=== PATIENT | female | born 1975 | race Caucasian/White ===

== ENCOUNTER 2017-07-26 10:34 | Emergency (ER) | payer MEDICAID ==
[~2017-07-26] VITALS: Ht 165.1 cm; Wt 63.0 kg
[~2017-07-26 10:34] MED LIST: NO HOME MEDS
[2017-07-26 11:17] VITALS: BP 121/73
[2017-07-26] MEDS ORDERED: CEPH-571 PO (11:30)
[2017-07-26] MEDS ORDERED: IBUP-1984 PO (11:30)
[2017-07-26] MEDS ORDERED: CLOT12CR TOP (11:30)
== END 2017-07-26 11:44 | disposition home or self-care (01) ==
LOC: ER 10:34
DX: B35.3 Tinea pedis (principal); L03.116 Cellulitis of left lower limb; L03.115 Cellulitis of right lower limb; Z88.0 Allergy status to penicillin; Z60.2 Problems related to living alone
CPT/HCPCS: 99283

== ENCOUNTER 2017-07-27 12:57 | Emergency (ER) | payer MEDICAID ==
[~2017-07-27] VITALS: Ht 165.1 cm; Wt 63.6 kg
[~2017-07-27 12:57] MED LIST changes: +CEPH-571 PO; +CLOT12CR TOP; +IBUP-1984 PO
[2017-07-27 13:00] VITALS: BP 143/89
== END 2017-07-27 14:31 | disposition home or self-care (01) ==
LOC: ER 12:58
DX: S90.821A Blister (nonthermal), right foot, initial encounter (principal); F17.200 Nicotine dependence, unspecified, uncomplicated; Z88.0 Allergy status to penicillin; Z56.0 Unemployment, unspecified; Z59.0 Homelessness
CPT/HCPCS: 99281

== ENCOUNTER 2017-09-17 08:42 | Emergency (ER) | payer MEDICAID ==
[~2017-09-17] VITALS: Ht 419.4 cm; Wt 63.6 kg
[~2017-09-17 08:42] MED LIST changes: -IBUP-1984 PO
[2017-09-17 08:58] VITALS: BP 120/80
[2017-09-17] MEDS ORDERED: DOXY100C43 PO (10:36)
== END 2017-09-17 10:48 | disposition home or self-care (01) ==
LOC: ER 08:42
DX: L03.116 Cellulitis of left lower limb (principal); E11.9 Type 2 diabetes mellitus without complications; Z88.0 Allergy status to penicillin; Z79.899 Other long term (current) drug therapy; Z79.2 Long term (current) use of antibiotics; Z60.2 Problems related to living alone; Z59.0 Homelessness
CPT/HCPCS: 99283

== ENCOUNTER 2017-11-01 15:39 | Emergency (ER) | payer MEDICAID ==
[~2017-11-01] VITALS: Ht 165.1 cm; Wt 59.4 kg
[2017-11-01] MEDS ORDERED: SULF1TAB49 PO (15:50)
[2017-11-01 15:57] VITALS: BP 135/89
== END 2017-11-01 16:01 | disposition home or self-care (01) ==
LOC: ER 15:39
DX: L03.811 Cellulitis of head [any part, except face] (principal); E11.9 Type 2 diabetes mellitus without complications; Z88.0 Allergy status to penicillin; Z79.2 Long term (current) use of antibiotics; Z59.0 Homelessness; Z60.2 Problems related to living alone
CPT/HCPCS: 99283

== ENCOUNTER 2017-11-12 10:00 | Emergency (ER) | payer MEDICAID ==
[~2017-11-12] VITALS: Ht 162.6 cm; Wt 59.0 kg
[2017-11-12 10:06] VITALS: BP 117/82
[2017-11-12] MEDS ORDERED: PERM59LI8 TOP (11:55)
[2017-11-12] MEDS ORDERED: SULF1TAB49 PO (11:55)
== END 2017-11-12 12:09 | disposition home or self-care (01) ==
LOC: ER 10:01
DX: B85.0 Pediculosis due to Pediculus humanus capitis (principal); L03.116 Cellulitis of left lower limb; L03.115 Cellulitis of right lower limb; E11.9 Type 2 diabetes mellitus without complications; Z88.0 Allergy status to penicillin; Z59.0 Homelessness
CPT/HCPCS: 99283

== ENCOUNTER 2018-01-13 21:58 | Emergency (ER) | payer MEDICAID ==
[~2018-01-13] VITALS: Ht 165.1 cm; Wt 54.5 kg
[~2018-01-13 21:58] MED LIST changes: +PERM59LI8 TOP
[2018-01-13 22:03] VITALS: BP 115/77
[2018-01-14] MEDS ORDERED: SULF1TAB49 PO (09:51)
== END 2018-01-13 23:03 | disposition left against medical advice (07) ==
LOC: ER 21:58
DX: M79.642 Pain in left hand (principal); Z53.21 Procedure and treatment not carried out due to patient leaving prior to being seen by health care provider

== ENCOUNTER 2018-01-14 09:21 | Emergency (ER) | payer MEDICAID ==
[~2018-01-14] VITALS: Ht 165.1 cm; Wt 63.6 kg
[2018-01-14 09:25] VITALS: BP 118/82
[2018-01-14] MEDS ORDERED: sulfamethoxazole/trimethoprim DS (800/160mg) tablet PO ONE (09:50)
[2018-01-14] MEDS ORDERED: SULF1TAB49 PO (09:51)
== END 2018-01-14 09:59 | disposition home or self-care (01) ==
LOC: ER 09:22
DX: L02.512 Cutaneous abscess of left hand (principal); E11.9 Type 2 diabetes mellitus without complications; Z60.2 Problems related to living alone; Z56.0 Unemployment, unspecified; Z88.0 Allergy status to penicillin; Z79.2 Long term (current) use of antibiotics; Z79.899 Other long term (current) drug therapy
CPT/HCPCS: 10160; 99283

== ENCOUNTER 2018-01-15 10:26 | Emergency (ER) | payer MEDICAID ==
[~2018-01-15] VITALS: Ht 162.6 cm; Wt 53.8 kg
[~2018-01-15 10:26] MED LIST changes: +SULF1TAB49 PO
[2018-01-15] MEDS ORDERED: HYDROcodone/acetaminophen 5mg/325mg tablet PO ONE (11:15)
[2018-01-15] MEDS ORDERED: LIDOcaine 1.5% w/epinephrine 1:200,000 5ml ampul IJ ONE (11:15)
[2018-01-15 11:39] VITALS: BP 126/87
== END 2018-01-15 13:31 | disposition home or self-care (01) ==
LOC: ER 10:26
DX: L02.11 Cutaneous abscess of neck (principal); L02.512 Cutaneous abscess of left hand; E11.9 Type 2 diabetes mellitus without complications; Z88.0 Allergy status to penicillin; Z59.0 Homelessness; Z60.2 Problems related to living alone
CPT/HCPCS: 10061; 99284; J3490

== ENCOUNTER 2018-01-16 18:13 | Emergency (ER) | payer MEDICAID ==
[~2018-01-16] VITALS: Ht 162.6 cm; Wt 56.2 kg
[2018-01-16 18:22] VITALS: BP 108/79
== END 2018-01-16 19:13 | disposition home or self-care (01) ==
LOC: ER 18:13
DX: L02.512 Cutaneous abscess of left hand (principal); Z59.0 Homelessness; Z88.0 Allergy status to penicillin; Z79.899 Other long term (current) drug therapy
CPT/HCPCS: 99282

== ENCOUNTER 2018-01-18 08:23 | Day surgery (SDC) | payer MEDICAID ==
[2018-01-18] MEDS ORDERED: LIDOcaine/PRILOcaine 5gm cream TP ONE (09:53)
[2018-01-18 10:30] LABS: BASOPHILS % (AUTO) 0.5 % (0-1); EOSINOPHILS # (AUTO) 0.1 X10'3 (0-0.9); EOSINOPHILS % (AUTO) 2.1 % (0-6); HEMATOCRIT 33.8 % (35.0-45.0); LYMPHOCYTES # (AUTO) 2.2 X10'3 (1.1-4.8); LYMPHOCYTES % (AUTO) 31.2 % (21-51); MEAN CORPUSCULAR HGB CONC 32.5 % (33.0-36.5); MEAN CORPUSCULAR VOLUME 86.1 FL (78-98); MEAN PLATELET VOLUME 6.4 FL (7.4-10.4); MONOCYTES # (AUTO) 0.4 X10'3 (0-0.9); MONOCYTES % (AUTO) 6.3 % (2-12); NEUTROPHILS # (AUTO) 4.2 X10'3 (1.8-7.7); NEUTROPHILS % (AUTO) 59.9 % (42-75); PLATELET COUNT 467 X10'3 (140-440); RED BLOOD COUNT 3.92 X10'6 (4.20-5.60); RED CELL DISTRIBUTION WIDTH 15.1 % (11.5-14.5); WHITE BLOOD COUNT 6.9 X10'3 (4.5-11.0)
[2018-01-18 10:32] LABS: HEMOGLOBIN A1C 5.9 % (4.5-6.2)
[2018-01-18 10:38] LABS: ALANINE AMINOTRANSFERASE 14 U/L (12-78); ALBUMIN 2.7 G/DL (3.4-5.0); ALBUMIN/GLOBULIN RATIO 0.5 (1.1-1.5); ALKALINE PHOSPHATASE 53 IU/L (46-116); ANION GAP 8 (8-16); ASPARTATE AMINO TRANSFERASE 16 U/L (10-37); BILIRUBIN,TOTAL 0.2 MG/DL (0.1-1.0); BLOOD UREA NITROGEN 12 MG/DL (7-18); BUN/CREATININE RATIO 14.8 (6.6-38.0); CALCIUM 8.9 MG/DL (8.5-10.1); CHLORIDE 104 MMOL/L (99-107); CREATININE 0.81 MG/DL (0.40-0.90); GLUCOSE 83 MG/DL (70-104); POTASSIUM 3.9 MMOL/L (3.5-5.1); PREALBUMIN 18.3 MG/DL (19-36); SODIUM 141 MMOL/L (135-145); TOTAL CARBON DIOXIDE 28.6 MMOL/L (24-32); TOTAL PROTEIN 7.7 G/DL (6.4-8.2); eGFR 78 ML/MIN
== END 2018-01-18 10:55 | disposition home or self-care (01) ==
LOC: WOUND CARE 08:23
PROVIDERS: ATTEND Surgery
DX: E11.622 Type 2 diabetes mellitus with other skin ulcer (principal); L98.492 Non-pressure chronic ulcer of skin of other sites with fat layer exposed; L02.512 Cutaneous abscess of left hand; Z79.2 Long term (current) use of antibiotics; Z79.899 Other long term (current) drug therapy
CPT/HCPCS: 36415; 80053; 83036; 84134; 85025; 97597; A6021; A6206; A6446

== ENCOUNTER 2018-01-22 21:05 | Emergency (ER) | payer MEDICAID ==
[~2018-01-22] VITALS: Ht 162.6 cm; Wt 59.0 kg
[~2018-01-22 21:05] MED LIST changes: -CEPH-571 PO; -CLOT12CR TOP; -PERM59LI8 TOP
[2018-01-22 21:29] VITALS: BP 136/65
[2018-01-22] MEDS ORDERED: SULF1TAB49 PO (21:31)
[2018-01-22] MEDS ORDERED: AZIT250T PO (21:32)
== END 2018-01-22 21:54 | disposition home or self-care (01) ==
LOC: ER 21:12
DX: L02.01 Cutaneous abscess of face (principal); L02.512 Cutaneous abscess of left hand; Z59.0 Homelessness; Z88.0 Allergy status to penicillin; Z60.2 Problems related to living alone
CPT/HCPCS: 99283

== ENCOUNTER 2018-01-30 11:13 | Outpatient (CLI) | payer MEDICAID ==
[~2018-01-30 11:13] MED LIST changes: +AZIT250T PO
== END 2018-01-30 12:34 | disposition home or self-care (01) ==
LOC: WOUND CARE 11:13
PROVIDERS: ATTEND Surgery
DX: E11.622 Type 2 diabetes mellitus with other skin ulcer (principal); L98.492 Non-pressure chronic ulcer of skin of other sites with fat layer exposed; L02.512 Cutaneous abscess of left hand; Z79.2 Long term (current) use of antibiotics; Z79.899 Other long term (current) drug therapy
CPT/HCPCS: 99215

== ENCOUNTER 2018-02-18 09:26 | Emergency (ER) | payer MEDICAID ==
[~2018-02-18] VITALS: Ht 165.1 cm; Wt 50.9 kg
[~2018-02-18 09:26] MED LIST changes: +CEPH-572 PO; -SULF1TAB49 PO
[2018-02-18 10:15] VITALS: BP 118/80
== END 2018-02-18 11:02 | disposition home or self-care (01) ==
LOC: ER 09:26
DX: L03.115 Cellulitis of right lower limb (principal); Z48.00 Encounter for change or removal of nonsurgical wound dressing; E11.9 Type 2 diabetes mellitus without complications; Z86.14 Personal history of Methicillin resistant Staphylococcus aureus infection; F15.90 Other stimulant use, unspecified, uncomplicated; Z88.0 Allergy status to penicillin; Z79.2 Long term (current) use of antibiotics; Z59.0 Homelessness; Z60.2 Problems related to living alone
CPT/HCPCS: 99281

== ENCOUNTER 2018-03-08 13:23 | Emergency (ER) | payer MEDICAID ==
[~2018-03-08 13:23] MED LIST changes: -CEPH-572 PO
== END 2018-03-08 13:40 | disposition left against medical advice (07) ==
LOC: ER 13:23
DX: Z02.89 Encounter for other administrative examinations (principal); Z53.21 Procedure and treatment not carried out due to patient leaving prior to being seen by health care provider

== ENCOUNTER 2018-03-30 13:24 | Emergency (ER) | payer MEDICAID ==
[~2018-03-30] VITALS: Ht 165.1 cm; Wt 55.0 kg
[2018-03-30 14:04] VITALS: BP 110/76
[2018-03-30 14:17] LABS: BASOPHILS % (AUTO) 0.4 % (0-1); EOSINOPHILS # (AUTO) 0.1 X10'3 (0-0.9); HEMATOCRIT 38.5 % (35.0-45.0); HEMOGLOBIN 12.8 g/dl (12.0-16.0); LYMPHOCYTES # (AUTO) 2.7 X10'3 (1.1-4.8); LYMPHOCYTES % (AUTO) 32.4 % (21-51); MEAN CORPUSCULAR HEMOGLOBIN 28.5 PG (27.0-31.0); MEAN CORPUSCULAR HGB CONC 33.1 % (33.0-36.5); MEAN CORPUSCULAR VOLUME 86.2 FL (78-98); MEAN PLATELET VOLUME 6.9 FL (7.4-10.4); MONOCYTES # (AUTO) 0.5 X10'3 (0-0.9); MONOCYTES % (AUTO) 6.3 % (2-12); NEUTROPHILS # (AUTO) 5.2 X10'3 (1.8-7.7); NEUTROPHILS % (AUTO) 59.9 % (42-75); PLATELET COUNT 410 X10'3 (140-440); RED BLOOD COUNT 4.47 X10'6 (4.20-5.60); WHITE BLOOD COUNT 8.5 X10'3 (4.5-11.0)
[2018-03-30] MEDS ORDERED: NO HOME MEDS (14:21)
[2018-03-30 14:24] LABS: URINE HCG NEGATIVE (NEG)
[2018-03-30 14:30] LABS: ALANINE AMINOTRANSFERASE 20 U/L (12-78); ALBUMIN 3.3 G/DL (3.4-5.0); ALBUMIN/GLOBULIN RATIO 0.7 (1.1-1.5); ALKALINE PHOSPHATASE 59 IU/L (46-116); ANION GAP 8 (8-16); ASPARTATE AMINO TRANSFERASE 11 U/L (10-37); BILIRUBIN,TOTAL 0.1 MG/DL (0.1-1.0); BLOOD UREA NITROGEN 16 MG/DL (7-18); BUN/CREATININE RATIO 19.3 (6.6-38.0); CALCIUM 8.7 MG/DL (8.5-10.1); CHLORIDE 101 MMOL/L (99-107); CREATININE 0.83 MG/DL (0.40-0.90); GLUCOSE 135 MG/DL (70-104); LIPASE 211 U/L (73-393); POTASSIUM 3.8 MMOL/L (3.5-5.1); SODIUM 138 MMOL/L (135-145); TOTAL CARBON DIOXIDE 29.5 MMOL/L (24-32); TOTAL PROTEIN 7.8 G/DL (6.4-8.2); eGFR 76 ML/MIN
[2018-03-30 14:33] LABS: CLARITY,URINE CLOUDY (Clear); COLOR,URINE YELLOW (Yellow); GLUCOSE, URINE NEGATIVE (Neg); KETONES,URINE TRACE mg/dl (Neg); LEUKOCYTE ESTERASE ,URINE LARGE (Neg); NITRITES, URINE POSITIVE (Neg); OCCULT BLOOD,URINE TRACE-LYSED (Neg); PROTEIN,URINE NEGATIVE (Neg); UROBILINOGEN,URINE 0.2 E.U/dL (0.2-1.0)
[2018-03-30 14:40] LABS: UA COLLECTION TYPE CLN CATCH MIDSTREAM
[2018-03-30 14:41] LABS: MUCUS STRANDS FEW /LPF (Neg); SQUAMOUS EPITHELIAL CELL,UR FEW /LPF (FEW)
[2018-03-30 14:42] LABS: BACTERIA,URINE 2+ /HPF (Neg); RBC,URINE 0-2 /HPF (0-2); TRICHOMONAS,URINE MOD /HPF (NEGATIVE); WBC,URINE 50-100 /HPF (0-4)
[2018-03-30] MEDS ORDERED: CIPR-230 PO (14:43)
[2018-03-30] MEDS ORDERED: ciprofloxacin 250mg tablet PO ONE (14:45)
--- NOTE | 2018-03-30 15:05 | NUR ---
PATIENT STATED THAT SHE HAS NO WAY TO OBTAIN ABX PRESCRITPTION. PATIENT INFORMED THAT SHE HAS PARTNERSHIP AND THE PRESCRIPTION IS COVERED BY MEDICAL. CARLOS CALLED AT [phone] FOR BEDSIDE DELIVERY OF PRESCRIPTION
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
== END 2018-03-30 15:18 | disposition home or self-care (01) ==
LOC: ER 13:24
DX: N39.0 Urinary tract infection, site not specified (principal); E11.9 Type 2 diabetes mellitus without complications; F15.90 Other stimulant use, unspecified, uncomplicated; Z88.0 Allergy status to penicillin; Z79.2 Long term (current) use of antibiotics; Z59.0 Homelessness; Z60.2 Problems related to living alone
CPT/HCPCS: 36415; 80053; 81001; 81025; 83690; 85025; 87077; 87088; 87186; 99283

== ENCOUNTER 2018-04-15 18:05 | Emergency (ER) | payer MEDICAID ==
[~2018-04-15] VITALS: Ht 160 cm; Wt 55.5 kg
[~2018-04-15 18:05] MED LIST changes: +CIPR-230 PO
[2018-04-15 18:09] VITALS: BP 145/91
[2018-04-15 19:42] LABS: BASOPHILS % (AUTO) 0.2 % (0-1); EOSINOPHILS # (AUTO) 0.2 X10'3 (0-0.9); EOSINOPHILS % (AUTO) 1.4 % (0-6); HEMATOCRIT 40.1 % (35.0-45.0); HEMOGLOBIN 13.1 g/dl (12.0-16.0); LYMPHOCYTES # (AUTO) 2.7 X10'3 (1.1-4.8); MEAN CORPUSCULAR HEMOGLOBIN 28.2 PG (27.0-31.0); MEAN CORPUSCULAR HGB CONC 32.7 % (33.0-36.5); MEAN CORPUSCULAR VOLUME 86.3 FL (78-98); MEAN PLATELET VOLUME 6.3 FL (7.4-10.4); MONOCYTES # (AUTO) 0.6 X10'3 (0-0.9); MONOCYTES % (AUTO) 4.6 % (2-12); NEUTROPHILS # (AUTO) 8.8 X10'3 (1.8-7.7); NEUTROPHILS % (AUTO) 71.8 % (42-75); PLATELET COUNT 470 X10'3 (140-440); RED BLOOD COUNT 4.65 X10'6 (4.20-5.60); WHITE BLOOD COUNT 12.3 X10'3 (4.5-11.0)
[2018-04-15 19:53] LABS: ALANINE AMINOTRANSFERASE 41 U/L (12-78); ALBUMIN 3.6 G/DL (3.4-5.0); ALBUMIN/GLOBULIN RATIO 0.7 (1.1-1.5); ALKALINE PHOSPHATASE 64 IU/L (46-116); ANION GAP 9 (8-16); ASPARTATE AMINO TRANSFERASE 48 U/L (10-37); BILIRUBIN,TOTAL 0.3 MG/DL (0.1-1.0); BLOOD UREA NITROGEN 13 MG/DL (7-18); BUN/CREATININE RATIO 14.4 (6.6-38.0); CHLORIDE 102 MMOL/L (99-107); CREATINE KINASE 739 U/L (26-192); GLUCOSE 104 MG/DL (70-104); POTASSIUM 3.7 MMOL/L (3.5-5.1); SODIUM 139 MMOL/L (135-145); TOTAL CARBON DIOXIDE 28.2 MMOL/L (24-32); TOTAL PROTEIN 8.5 G/DL (6.4-8.2); eGFR 69 ML/MIN
[2018-04-15] MEDS ORDERED: CLIN150C2 PO (20:29)
== END 2018-04-15 20:38 | disposition home or self-care (01) ==
LOC: ER 18:05
DX: L03.116 Cellulitis of left lower limb (principal); L03.115 Cellulitis of right lower limb; E11.9 Type 2 diabetes mellitus without complications; F15.90 Other stimulant use, unspecified, uncomplicated; Z86.14 Personal history of Methicillin resistant Staphylococcus aureus infection; Z88.0 Allergy status to penicillin; Z59.0 Homelessness
CPT/HCPCS: 36415; 80053; 82550; 82948; 85025; 99283

== ENCOUNTER 2018-04-16 11:53 | Emergency (ER) | payer MEDICAID ==
[~2018-04-16] VITALS: Ht 165.1 cm; Wt 59.0 kg
[~2018-04-16 11:53] MED LIST changes: +CLIN150C2 PO
[2018-04-16 12:05] VITALS: BP 128/80
--- NOTE | 2018-04-16 13:40 | NUR ---
PT CALLED x3 TO ER FOR EVALUATION, NIL, PROVIDER NOTIFIED, NO FURTHER ACTION ORDERD
== END 2018-04-16 14:21 | disposition left against medical advice (07) ==
LOC: ER 11:54
DX: M79.673 Pain in unspecified foot (principal); Z53.21 Procedure and treatment not carried out due to patient leaving prior to being seen by health care provider

== ENCOUNTER 2018-05-03 16:39 | Emergency (ER) | payer MEDICAID ==
[~2018-05-03] VITALS: Ht 165.1 cm; Wt 59.1 kg
[~2018-05-03 16:39] MED LIST changes: -CIPR-230 PO
--- NOTE | 2018-05-03 18:20 | NUR ---
Patient eating cookies and resting in the chair. 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 Patient has had no injury to her feet and they are mildly reddened from walking. There is one small healing blister to the left heel but there is no swelling or purulent drainage.
[2018-05-03] MEDS ORDERED: GABA-530 PO (19:07)
[2018-05-03 19:19] VITALS: BP 129/77
== END 2018-05-03 19:21 | disposition home or self-care (01) ==
LOC: ER 16:40
DX: E11.40 Type 2 diabetes mellitus with diabetic neuropathy, unspecified (principal); M79.671 Pain in right foot; M79.672 Pain in left foot; F15.90 Other stimulant use, unspecified, uncomplicated; Z86.14 Personal history of Methicillin resistant Staphylococcus aureus infection; Z60.2 Problems related to living alone; Z59.0 Homelessness; Z88.0 Allergy status to penicillin; Z79.2 Long term (current) use of antibiotics; Z79.899 Other long term (current) drug therapy
CPT/HCPCS: 99283

== ENCOUNTER 2018-05-04 21:04 | Emergency (ER) | payer MEDICAID ==
[~2018-05-04] VITALS: Ht 157.5 cm; Wt 56.0 kg
[~2018-05-04 21:04] MED LIST changes: +GABA-530 PO
[2018-05-04 21:09] VITALS: BP 156/82
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
--- NOTE | 2018-05-04 22:40 | NUR ---
PT GIVEN SANDWICH, YOGURT AND JUICE, PT PLANS TO GO TO "[place] ...I AM SAFE THERE AND WON'T BE RAINED ON"
--- NOTE | 2018-05-04 22:49 | NUR ---
PT AMB WITH STEADY GAIT TO LOIS, ALSO GAVE PT TAMPONS PER HER REQUEST, TOOK PT TO [facility] "I LEFT MY STUFF HERE THE OTHER DAY...THEY SAID I COULD STORE IT HERE...I HAVE BLANKETS" PT HAS LARGE GARBAGE BAG OF BELONGINGS SHE TOOK WITH HER TODAY
== END 2018-05-04 22:56 | disposition home or self-care (01) ==
LOC: ER 21:05
DX: S90.822A Blister (nonthermal), left foot, initial encounter (principal); S90.821A Blister (nonthermal), right foot, initial encounter; E11.9 Type 2 diabetes mellitus without complications; Z86.14 Personal history of Methicillin resistant Staphylococcus aureus infection; F15.90 Other stimulant use, unspecified, uncomplicated; Z88.0 Allergy status to penicillin; Z79.899 Other long term (current) drug therapy; Z60.2 Problems related to living alone; Z59.0 Homelessness; X58.XXXA Exposure to other specified factors, initial encounter; Y93.01 Activity, walking, marching and hiking; Y92.89 Other specified places as the place of occurrence of the external cause; Y99.8 Other external cause status
CPT/HCPCS: 99281

== ENCOUNTER 2018-05-19 07:38 | Emergency (ER) | payer MEDICAID ==
[~2018-05-19] VITALS: Ht 165.1 cm; Wt 54.5 kg
[~2018-05-19 07:38] MED LIST changes: -CLIN150C2 PO
[2018-05-19 09:47] LABS: BASOPHILS # (AUTO) 0.1 X10'3 (0-0.2); BASOPHILS % (AUTO) 0.5 % (0-1); EOSINOPHILS % (AUTO) 0.5 % (0-6); HEMATOCRIT 34.9 % (35.0-45.0); HEMOGLOBIN 11.5 g/dl (12.0-16.0); LYMPHOCYTES # (AUTO) 1.4 X10'3 (1.1-4.8); LYMPHOCYTES % (AUTO) 15.3 % (21-51); MEAN CORPUSCULAR HGB CONC 32.8 g/dL (33.0-36.5); MEAN CORPUSCULAR VOLUME 88.3 FL (78-98); MEAN PLATELET VOLUME 6.5 FL (7.4-10.4); MONOCYTES # (AUTO) 0.6 X10'3 (0-0.9); MONOCYTES % (AUTO) 6.6 % (2-12); NEUTROPHILS # (AUTO) 7.2 X10'3 (1.8-7.7); NEUTROPHILS % (AUTO) 77.1 % (42-75); PLATELET COUNT 340 X10'3 (140-440); RED BLOOD COUNT 3.95 X10'6 (4.20-5.60); RED CELL DISTRIBUTION WIDTH 16.3 % (11.5-14.5); WHITE BLOOD COUNT 9.3 X10'3 (4.5-11.0)
[2018-05-19 10:04] LABS: ALANINE AMINOTRANSFERASE 25 U/L (12-78); ALBUMIN 2.5 G/DL (3.4-5.0); ALBUMIN/GLOBULIN RATIO 0.5 (1.1-1.5); ALKALINE PHOSPHATASE 64 IU/L (46-116); ANION GAP 6 (8-16); ASPARTATE AMINO TRANSFERASE 14 U/L (10-37); BILIRUBIN,TOTAL 0.2 MG/DL (0.1-1.0); BLOOD UREA NITROGEN 13 MG/DL (7-18); BUN/CREATININE RATIO 18.1 (6.6-38.0); CALCIUM 8.9 MG/DL (8.5-10.1); CHLORIDE 104 MMOL/L (99-107); CREATININE 0.72 MG/DL (0.40-0.90); GLUCOSE 124 MG/DL (70-104); POTASSIUM 4.1 MMOL/L (3.5-5.1); SODIUM 140 MMOL/L (135-145); TOTAL PROTEIN 7.2 G/DL (6.4-8.2); eGFR 90 ML/MIN
[2018-05-19 12:15] LABS: URINE AMPHETAMINE SCREEN NEGATIVE (Neg); URINE BARBITUATE SCREEN NEGATIVE (Neg); URINE BENZODIAZEPINES SCREEN NEGATIVE (Neg); URINE CANNABINOID SCREEN POSITIVE (Neg); URINE COCAINE SCREEN NEGATIVE (Neg); URINE METHADONE SCREEN NEGATIVE (Neg); URINE OPIATE SCREEN NEGATIVE (Neg); URINE PHENCYCLIDINE SCREEN NEGATIVE (Neg)
[2018-05-19 13:12] VITALS: BP 155/96
== END 2018-05-19 13:14 | disposition home or self-care (01) ==
LOC: ER 07:39
DX: I77.6 Arteritis, unspecified (principal); E11.9 Type 2 diabetes mellitus without complications; Z86.14 Personal history of Methicillin resistant Staphylococcus aureus infection; F17.200 Nicotine dependence, unspecified, uncomplicated; F15.90 Other stimulant use, unspecified, uncomplicated; Z88.0 Allergy status to penicillin; Z79.899 Other long term (current) drug therapy; Z60.2 Problems related to living alone; Z59.0 Homelessness
CPT/HCPCS: 36415; 71045; 80053; 80305; 85025; 99284

== ENCOUNTER 2018-06-25 08:09 | Emergency (ER) | payer MEDICAID ==
[~2018-06-25] VITALS: Ht 165.1 cm; Wt 51.2 kg
[2018-06-25 08:13] VITALS: BP 114/62
[2018-06-25] MEDS ORDERED: DOXY100C2 PO (08:31)
--- NOTE | 2018-06-25 09:00 | NUR ---
pt. was examined and assessed by PA. Murray. pt was not seen or assessed by a nurse. pt. discharged by Pa. Murray... pt. to follow up with wound care at [facility]. phone number given for her to call tuesday.
== END 2018-06-25 09:06 | disposition home or self-care (01) ==
LOC: ER 08:10
DX: E11.52 Type 2 diabetes mellitus with diabetic peripheral angiopathy with gangrene (principal); I96 Gangrene, not elsewhere classified; F15.90 Other stimulant use, unspecified, uncomplicated; Z86.14 Personal history of Methicillin resistant Staphylococcus aureus infection; Z60.2 Problems related to living alone; Z59.0 Homelessness; Z88.0 Allergy status to penicillin; Z79.899 Other long term (current) drug therapy
CPT/HCPCS: 99283

== ENCOUNTER 2018-07-14 10:07 | Inpatient (IN) | payer MEDICAID ==
[~2018-07-14] VITALS: Ht 165.1 cm; Wt 54.4 kg
[2018-07-14 11:12] LABS: BASOPHILS % (AUTO) 0.6 % (0-1); EOSINOPHILS # (AUTO) 0.1 X10'3 (0-0.9); EOSINOPHILS % (AUTO) 0.7 % (0-6); HEMATOCRIT 39.6 % (35.0-45.0); HEMOGLOBIN 12.9 g/dl (12.0-16.0); LYMPHOCYTES # (AUTO) 2.4 X10'3 (1.1-4.8); MEAN CORPUSCULAR HEMOGLOBIN 29.1 PG (27.0-31.0); MEAN CORPUSCULAR HGB CONC 32.7 g/dL (33.0-36.5); MEAN CORPUSCULAR VOLUME 88.9 FL (78-98); MEAN PLATELET VOLUME 6.4 FL (7.4-10.4); MONOCYTES # (AUTO) 0.4 X10'3 (0-0.9); MONOCYTES % (AUTO) 4.3 % (2-12); NEUTROPHILS # (AUTO) 5.4 X10'3 (1.8-7.7); NEUTROPHILS % (AUTO) 65.4 % (42-75); PLATELET COUNT 417 X10'3 (140-440); RED BLOOD COUNT 4.45 X10'6 (4.20-5.60); WHITE BLOOD COUNT 8.2 X10'3 (4.5-11.0)
[2018-07-14 11:26] LABS: ALANINE AMINOTRANSFERASE 22 U/L (12-78); ALBUMIN 3.5 G/DL (3.4-5.0); ALBUMIN/GLOBULIN RATIO 0.7 (1.1-1.5); ALKALINE PHOSPHATASE 71 IU/L (46-116); ANION GAP 7 (8-16); ASPARTATE AMINO TRANSFERASE 15 U/L (10-37); BILIRUBIN,TOTAL 0.2 MG/DL (0.1-1.0); BLOOD UREA NITROGEN 11 MG/DL (7-18); BUN/CREATININE RATIO 13.3 (6.6-38.0); CALCIUM 9.3 MG/DL (8.5-10.1); CHLORIDE 104 MMOL/L (99-107); CREATININE 0.83 MG/DL (0.40-0.90); GLUCOSE 133 MG/DL (70-104); POTASSIUM 3.4 MMOL/L (3.5-5.1); SODIUM 141 MMOL/L (135-145); TOTAL CARBON DIOXIDE 30.2 MMOL/L (24-32); TOTAL PROTEIN 8.7 G/DL (6.4-8.2); eGFR 76 ML/MIN
[2018-07-14 12:02] LABS: URINE AMPHETAMINE SCREEN POSITIVE (Neg); URINE BARBITUATE SCREEN NEGATIVE (Neg); URINE BENZODIAZEPINES SCREEN NEGATIVE (Neg); URINE CANNABINOID SCREEN POSITIVE (Neg); URINE COCAINE SCREEN NEGATIVE (Neg); URINE METHADONE SCREEN NEGATIVE (Neg); URINE OPIATE SCREEN NEGATIVE (Neg); URINE PHENCYCLIDINE SCREEN NEGATIVE (Neg)
[2018-07-14] MEDS ORDERED: nicotine 14mg patch - 24hr TD STA (13:01)
--- NOTE | 2018-07-14 13:02 | NUR ---
received a verbal order from Maico ARZOLA for nicotine patch 14mg.Patient aware.
[2018-07-14] MEDS ORDERED: glucagon, human recombinant 1mg kit SUBCUT PRN (13:15)
[2018-07-14] MEDS ORDERED: HYDROcodone/acetaminophen 10/325mg tab PO ONE (13:15)
[2018-07-14] MEDS ORDERED: dextrose 50%-water 50ml dispensing syringe IV PRN ×2 (13:15)
[2018-07-14] MEDS ORDERED: magnesium 4gm in 100ml NS 100 ML IV PRN (13:15)
[2018-07-14] MEDS ORDERED: insulin Lispro (HumaLOG) vial - multi-dose SQ SCH (13:15)
[2018-07-14] MEDS ORDERED: ondansetron/PF 4mg/2ml inj IV PRN (13:15)
[2018-07-14] MEDS ORDERED: dextrose ORAL solution 15 GM/59 ML bottle PO PRN ×2 (13:15)
[2018-07-14] MEDS ORDERED: MESSAGE TO PHARMACY PO ONE (13:15)
[2018-07-14] MEDS ORDERED: acetaminophen 325mg tablet PO PRN ×2 (13:15)
[2018-07-14] MEDS ORDERED: potassium Cl 20 mEq SR tablet PO PRN (13:15)
[2018-07-14] MEDS ORDERED: potassium Cl 40MEQ/NS 500ml 500 ML IV PRN ×2 (13:15)
[2018-07-14] MEDS ORDERED: diphenhydrAMINE 50 mg/ml inj IV PRN (13:15)
[2018-07-14] MEDS ORDERED: magnesium hydroxide 30ml (MOM) UD suspension PO PRN (13:15)
[2018-07-14] MEDS ORDERED: magnesium 2GM in 50ml NS 50 ML IV PRN (13:15)
[2018-07-14] MEDS ORDERED: morphine 2 MG/ML inj. syringe IV PRN (13:15)
[2018-07-14] MEDS ORDERED: mag hydrox/Alum hydrox/simeth 30ml oral suspension PO PRN (13:15)
[2018-07-14] MEDS ORDERED: cefepime 1GM/NS ADD-VANTAGE 100 ML IV ONE (13:19)
[2018-07-14] MEDS ORDERED: vancomycin/NS 1 GM ADD-VANTAGE 250 ML X 1 DOSE IV ONE (13:25)
--- NOTE | 2018-07-14 13:43 | NUR ---
called report spoke to Emani RN,nurse in the room with patient.will attempt again in 10 minutes.
[2018-07-14 14:00] VITALS: BP 142/93
[2018-07-14] MEDS: normal saline 1000ml 1,000 ML IV SCH ×2 (14:13→23:12)
[2018-07-14 14:31] LABS: HEMOGLOBIN A1C 5.9 % (4.5-6.2)
[2018-07-14] MEDS: VANCOMYCIN 750MG IV in NS 250 ML IV SCH (14:56)
[2018-07-14] MEDS: potassium Cl 20 mEq SR tablet PO PRN (15:10)
[2018-07-14] MEDS: cefepime 1GM/NS ADD-VANTAGE 100 ML IV SCH (17:03)
--- NOTE | 2018-07-14 19:00 | NUR ---
Patient in room ORTHO 4018. I have received report from tasha cook and had the opportunity to ask questions and assume patient care.
--- NOTE | 2018-07-14 19:00 | NUR ---
Patient in room ORTHO 4018. I have received report from Anamaria ALFREDO and had the opportunity to ask questions and assume patient care.
[2018-07-14] MEDS: insulin glargine (Lantus) pen - multi-dose SQ SCH (21:00)
[2018-07-14] MEDS ORDERED: gabapentin 100mg capsule PO PRN (22:10)
[2018-07-14] MEDS: morphine 2 MG/ML inj. syringe IV PRN (22:17)
[2018-07-14] MEDS: gabapentin 100mg capsule PO SCH (22:26)
[2018-07-15] MEDS: cefepime 1GM/NS ADD-VANTAGE 100 ML IV SCH ×3 (00:29→17:45)
[2018-07-15] MEDS: diphenhydrAMINE 25mg capsule PO PRN (00:36)
[2018-07-15] MEDS: morphine 2 MG/ML inj. syringe IV PRN ×3 (02:05→11:36)
[2018-07-15] MEDS: VANCOMYCIN 750MG IV in NS 250 ML IV SCH ×2 (02:05→14:37)
[2018-07-15] MEDS: potassium Cl 20 mEq SR tablet PO PRN (02:15)
[2018-07-15 06:00] VITALS: BP 131/68
[2018-07-15 06:10] LABS: BASOPHILS % (AUTO) 0.4 % (0-1); EOSINOPHILS # (AUTO) 0.1 X10'3 (0-0.9); EOSINOPHILS % (AUTO) 1.2 % (0-6); HEMATOCRIT 33.3 % (35.0-45.0); HEMOGLOBIN 10.9 g/dl (12.0-16.0); LYMPHOCYTES # (AUTO) 2.9 X10'3 (1.1-4.8); LYMPHOCYTES % (AUTO) 34.4 % (21-51); MEAN CORPUSCULAR HGB CONC 32.7 g/dL (33.0-36.5); MEAN CORPUSCULAR VOLUME 88.8 FL (78-98); MEAN PLATELET VOLUME 6.5 FL (7.4-10.4); MONOCYTES # (AUTO) 0.3 X10'3 (0-0.9); MONOCYTES % (AUTO) 3.5 % (2-12); NEUTROPHILS # (AUTO) 5.1 X10'3 (1.8-7.7); NEUTROPHILS % (AUTO) 60.5 % (42-75); PLATELET COUNT 332 X10'3 (140-440); RED BLOOD COUNT 3.75 X10'6 (4.20-5.60); RED CELL DISTRIBUTION WIDTH 14.7 % (11.5-14.5); WHITE BLOOD COUNT 8.4 X10'3 (4.5-11.0)
--- NOTE | 2018-07-15 06:10 | NUR ---
Patient in room ORTHO 4018. I have received report from Charlie ALFREDO and had the opportunity to ask questions and assume patient care.
[2018-07-15 06:22] LABS: ALANINE AMINOTRANSFERASE 17 U/L (12-78); ALBUMIN 2.6 G/DL (3.4-5.0); ALBUMIN/GLOBULIN RATIO 0.7 (1.1-1.5); ALKALINE PHOSPHATASE 49 IU/L (46-116); ANION GAP 5 (8-16); ASPARTATE AMINO TRANSFERASE 13 U/L (10-37); BILIRUBIN,TOTAL 0.2 MG/DL (0.1-1.0); BLOOD UREA NITROGEN 14 MG/DL (7-18); BUN/CREATININE RATIO 18.4 (6.6-38.0); CALCIUM 8.5 MG/DL (8.5-10.1); CHLORIDE 108 MMOL/L (99-107); CREATININE 0.76 MG/DL (0.40-0.90); GLUCOSE 85 MG/DL (70-104); POTASSIUM 4.4 MMOL/L (3.5-5.1); SODIUM 140 MMOL/L (135-145); TOTAL CARBON DIOXIDE 27.5 MMOL/L (24-32); TOTAL PROTEIN 6.6 G/DL (6.4-8.2); eGFR 84 ML/MIN
[2018-07-15] MEDS: gabapentin 100mg capsule PO SCH ×3 (07:23→23:57)
[2018-07-15] MEDS: nicotine 14mg patch - 24hr TD SCH (07:24)
[2018-07-15] MEDS: enoxaparin 40mg/0.4ml syringe SQ SCH (07:24)
[2018-07-15] MEDS: K and/or MAG REPLACEMENT MC SCH (08:00)
--- NOTE | 2018-07-15 11:30 | NUR ---
Paged Dr. Benson PAGER ID: [phone] MESSAGE: [phone] Prabha Fagan. Dr Montoya recommends No urgent surgical indication, recommend return to outpatient wound care with Dr Mcmillan. Also can I get something besides morphine for pain? Britney [phone]
--- NOTE | 2018-07-15 12:58 | NUR ---
Consult re: DM, wounds. Pt with A1c 5.9; DM ed not warranted at this time. Pt with necrotic tissue to bilat heel and toes seen at bedside given written and verbal protein ed with RD contact information. Pt endorses a good appetite and is agreeable to double protein TID, d/w dietary. Pt states she doesn't like fish, food preferences d/w dietary. Will continue to follow. Addendum: 07/15/18 at [address] Amended: Links added.
[2018-07-15] MEDS ORDERED: oxyCODONE/APAP 5-325mg tablet PO PRN (13:35)
[2018-07-15] MEDS: normal saline 1000ml 1,000 ML IV SCH (14:38)
--- NOTE | 2018-07-15 18:00 | NUR ---
Problems reprioritized. Patient report given, questions answered & plan of care reviewed with Selina ALFREDO.
[2018-07-15] MEDS: oxyCODONE/APAP 10/325mg tablet PO PRN (20:00)
[2018-07-15] MEDS: insulin glargine (Lantus) pen - multi-dose SQ SCH (21:00)
[2018-07-16] MEDS: cefepime 1GM/NS ADD-VANTAGE 100 ML IV SCH ×4 (00:03→23:34)
[2018-07-16] MEDS ORDERED: VANCOMYCIN LEVEL IV NR (01:30)
[2018-07-16] MEDS: oxyCODONE/APAP 10/325mg tablet PO PRN ×4 (03:18→23:33)
[2018-07-16] MEDS: VANCOMYCIN 750MG IV in NS 250 ML IV SCH (03:25)
[2018-07-16 03:51] LABS: ALANINE AMINOTRANSFERASE 21 U/L (12-78); ALBUMIN 2.6 G/DL (3.4-5.0); ALBUMIN/GLOBULIN RATIO 0.6 (1.1-1.5); ALKALINE PHOSPHATASE 46 IU/L (46-116); ANION GAP 4 (8-16); ASPARTATE AMINO TRANSFERASE 13 U/L (10-37); BILIRUBIN,TOTAL 0.1 MG/DL (0.1-1.0); BLOOD UREA NITROGEN 13 MG/DL (7-18); BUN/CREATININE RATIO 15.7 (6.6-38.0); CALCIUM 8.7 MG/DL (8.5-10.1); CHLORIDE 107 MMOL/L (99-107); CREATININE 0.83 MG/DL (0.40-0.90); GLUCOSE 89 MG/DL (70-104); POTASSIUM 4.1 MMOL/L (3.5-5.1); SODIUM 140 MMOL/L (135-145); TOTAL PROTEIN 6.8 G/DL (6.4-8.2); VANCOMYCIN,TROUGH 8.5 UG/ML (6.0-14.0); eGFR 76 ML/MIN
[2018-07-16 06:00] VITALS: BP 118/74
[2018-07-16 06:31] LABS: BASOPHILS % (AUTO) 0.5 % (0-1); EOSINOPHILS # (AUTO) 0.1 X10'3 (0-0.9); EOSINOPHILS % (AUTO) 1.1 % (0-6); HEMATOCRIT 33.8 % (35.0-45.0); HEMOGLOBIN 11.1 g/dl (12.0-16.0); LYMPHOCYTES # (AUTO) 2.6 X10'3 (1.1-4.8); LYMPHOCYTES % (AUTO) 43.4 % (21-51); MEAN CORPUSCULAR HEMOGLOBIN 29.1 PG (27.0-31.0); MEAN CORPUSCULAR HGB CONC 32.9 g/dL (33.0-36.5); MEAN CORPUSCULAR VOLUME 88.4 FL (78-98); MEAN PLATELET VOLUME 6.4 FL (7.4-10.4); MONOCYTES # (AUTO) 0.3 X10'3 (0-0.9); MONOCYTES % (AUTO) 5.6 % (2-12); NEUTROPHILS % (AUTO) 49.4 % (42-75); PLATELET COUNT 337 X10'3 (140-440); RED BLOOD COUNT 3.83 X10'6 (4.20-5.60); RED CELL DISTRIBUTION WIDTH 14.5 % (11.5-14.5); WHITE BLOOD COUNT 6.1 X10'3 (4.5-11.0)
[2018-07-16] MEDS: K and/or MAG REPLACEMENT MC SCH (08:00)
[2018-07-16] MEDS: gabapentin 100mg capsule PO SCH ×3 (09:24→21:15)
[2018-07-16] MEDS: nicotine 14mg patch - 24hr TD SCH (09:24)
[2018-07-16 10:00] VITALS: BP 138/90
[2018-07-16] MEDS: vancomycin inj 1,250 MG in NS 250ml IV soln IV SCH (14:46)
[2018-07-16] MEDS: normal saline 1000ml 1,000 ML IV SCH ×2 (17:19→17:21)
[2018-07-16] MEDS: enoxaparin 40mg/0.4ml syringe SQ SCH (17:20)
[2018-07-16 18:00] VITALS: BP 129/61
--- NOTE | 2018-07-16 18:16 | NUR ---
Report to Trice ALFREDO
--- NOTE | 2018-07-16 18:46 | NUR ---
Patient in room ORTHO 4018. I have received report from guanakito Zheng and had the opportunity to ask questions and assume patient care.
[2018-07-16] MEDS: insulin glargine (Lantus) pen - multi-dose SQ SCH (21:00)
[2018-07-16] MEDS: lactobacillus rhamnosus 10,000 MMU CELLS/CAPSULE PO SCH (21:15)
[2018-07-16 22:00] VITALS: BP 111/63
[2018-07-17] MEDS: vancomycin inj 1,250 MG in NS 250ml IV soln IV SCH (02:21)
[2018-07-17] MEDS: normal saline 1000ml 1,000 ML IV SCH ×3 (02:24→20:36)
[2018-07-17 05:00] VITALS: BP 156/76
--- NOTE | 2018-07-17 06:16 | NUR ---
Problems reprioritized. Patient report given, questions answered & plan of care reviewed with SAYDA RAI.
[2018-07-17 06:26] LABS: BASOPHILS % (AUTO) 0.6 % (0-1); EOSINOPHILS # (AUTO) 0.1 X10'3 (0-0.9); EOSINOPHILS % (AUTO) 1.5 % (0-6); HEMATOCRIT 34.5 % (35.0-45.0); HEMOGLOBIN 11.5 g/dl (12.0-16.0); LYMPHOCYTES # (AUTO) 2.7 X10'3 (1.1-4.8); LYMPHOCYTES % (AUTO) 49.2 % (21-51); MEAN CORPUSCULAR HEMOGLOBIN 29.3 PG (27.0-31.0); MEAN CORPUSCULAR HGB CONC 33.3 g/dL (33.0-36.5); MEAN CORPUSCULAR VOLUME 87.9 FL (78-98); MEAN PLATELET VOLUME 6.1 FL (7.4-10.4); MONOCYTES # (AUTO) 0.4 X10'3 (0-0.9); MONOCYTES % (AUTO) 8.1 % (2-12); NEUTROPHILS # (AUTO) 2.2 X10'3 (1.8-7.7); NEUTROPHILS % (AUTO) 40.6 % (42-75); PLATELET COUNT 336 X10'3 (140-440); RED BLOOD COUNT 3.92 X10'6 (4.20-5.60); RED CELL DISTRIBUTION WIDTH 14.6 % (11.5-14.5); WHITE BLOOD COUNT 5.5 X10'3 (4.5-11.0)
[2018-07-17 06:39] LABS: ALANINE AMINOTRANSFERASE 16 U/L (12-78); ALBUMIN 2.8 G/DL (3.4-5.0); ALBUMIN/GLOBULIN RATIO 0.7 (1.1-1.5); ALKALINE PHOSPHATASE 46 IU/L (46-116); ANION GAP 5 (8-16); ASPARTATE AMINO TRANSFERASE 12 U/L (10-37); BILIRUBIN,TOTAL 0.2 MG/DL (0.1-1.0); BLOOD UREA NITROGEN 13 MG/DL (7-18); BUN/CREATININE RATIO 15.3 (6.6-38.0); CALCIUM 9.2 MG/DL (8.5-10.1); CHLORIDE 107 MMOL/L (99-107); CREATININE 0.85 MG/DL (0.40-0.90); GLUCOSE 85 MG/DL (70-104); MAGNESIUM 2.1 MG/DL (1.5-2.4); POTASSIUM 4.7 MMOL/L (3.5-5.1); SODIUM 140 MMOL/L (135-145); TOTAL CARBON DIOXIDE 28.5 MMOL/L (24-32); eGFR 74 ML/MIN
--- NOTE | 2018-07-17 06:53 | NUR ---
Report received from Trice ALFREDO
[2018-07-17] MEDS: nicotine 14mg patch - 24hr TD SCH (08:00)
[2018-07-17] MEDS: K and/or MAG REPLACEMENT MC SCH (08:00)
[2018-07-17] MEDS ORDERED: CefTRIAXone 2gm/D5W 50ml 50 ML IV SCH (09:10)
[2018-07-17] MEDS: gabapentin 100mg capsule PO SCH ×3 (09:20→20:36)
[2018-07-17] MEDS: metroNIDAZOLE-Flagyl 500mg/NS 100 ML IV SCH ×2 (09:20→15:29)
[2018-07-17] MEDS: lactobacillus rhamnosus 10,000 MMU CELLS/CAPSULE PO SCH ×2 (09:20→20:36)
[2018-07-17] MEDS: enoxaparin 40mg/0.4ml syringe SQ SCH (09:21)
[2018-07-17] MEDS: oxyCODONE/APAP 10/325mg tablet PO PRN ×3 (09:35→21:18)
[2018-07-17 10:00] VITALS: BP 139/85
[2018-07-17] MEDS ORDERED: gadopentetate dimeglumine 10 MMOL/20 ML syringe IV ONE ×2 (10:06)
[2018-07-17 17:57] VITALS: BP 137/77
--- NOTE | 2018-07-17 18:38 | NUR ---
Report to June RN Student documentation: I have reviewed and agree with all interventions, assessments performed and documented by Heidi VIRAMONTES. Student Medication Administration: For this medication-pass time frame, all medication were reviewed, dispensed, administered and documented per hospital policy by Heidi VIRAMONTES.
[2018-07-17] MEDS: insulin glargine (Lantus) pen - multi-dose SQ SCH (21:00)
[2018-07-17 22:00] VITALS: BP 125/90
[2018-07-18] MEDS: metroNIDAZOLE-Flagyl 500mg/NS 100 ML IV SCH ×2 (01:10→07:48)
[2018-07-18] MEDS ORDERED: VANCOMYCIN LEVEL IV NR (01:30)
[2018-07-18] MEDS: oxyCODONE/APAP 10/325mg tablet PO PRN ×2 (04:55→20:46)
[2018-07-18 06:00] VITALS: BP 110/64
[2018-07-18 06:22] LABS: BASOPHILS % (AUTO) 0.6 % (0-1); EOSINOPHILS # (AUTO) 0.1 X10'3 (0-0.9); EOSINOPHILS % (AUTO) 1.6 % (0-6); HEMATOCRIT 35.9 % (35.0-45.0); HEMOGLOBIN 11.7 g/dl (12.0-16.0); LYMPHOCYTES # (AUTO) 2.2 X10'3 (1.1-4.8); MEAN CORPUSCULAR HEMOGLOBIN 28.8 PG (27.0-31.0); MEAN CORPUSCULAR HGB CONC 32.7 g/dL (33.0-36.5); MEAN CORPUSCULAR VOLUME 88.3 FL (78-98); MEAN PLATELET VOLUME 6.4 FL (7.4-10.4); MONOCYTES # (AUTO) 0.6 X10'3 (0-0.9); MONOCYTES % (AUTO) 9.2 % (2-12); NEUTROPHILS # (AUTO) 3.1 X10'3 (1.8-7.7); NEUTROPHILS % (AUTO) 52.6 % (42-75); PLATELET COUNT 337 X10'3 (140-440); RED BLOOD COUNT 4.06 X10'6 (4.20-5.60); RED CELL DISTRIBUTION WIDTH 14.6 % (11.5-14.5)
[2018-07-18 06:38] LABS: ALANINE AMINOTRANSFERASE 19 U/L (12-78); ALBUMIN 2.9 G/DL (3.4-5.0); ALBUMIN/GLOBULIN RATIO 0.7 (1.1-1.5); ALKALINE PHOSPHATASE 47 IU/L (46-116); ANION GAP 5 (8-16); ASPARTATE AMINO TRANSFERASE 14 U/L (10-37); BILIRUBIN,TOTAL 0.2 MG/DL (0.1-1.0); BLOOD UREA NITROGEN 18 MG/DL (7-18); BUN/CREATININE RATIO 18.8 (6.6-38.0); CALCIUM 9.3 MG/DL (8.5-10.1); CHLORIDE 106 MMOL/L (99-107); CREATININE 0.96 MG/DL (0.40-0.90); GLUCOSE 91 MG/DL (70-104); POTASSIUM 4.8 MMOL/L (3.5-5.1); SODIUM 141 MMOL/L (135-145); TOTAL CARBON DIOXIDE 30.1 MMOL/L (24-32); TOTAL PROTEIN 7.3 G/DL (6.4-8.2); VANCOMYCIN,TROUGH 4.6 UG/ML (6.0-14.0); eGFR 64 ML/MIN
[2018-07-18] MEDS: enoxaparin 40mg/0.4ml syringe SQ SCH (07:48)
[2018-07-18] MEDS: gabapentin 100mg capsule PO SCH ×3 (07:48→19:47)
[2018-07-18] MEDS: nicotine 14mg patch - 24hr TD SCH (07:48)
[2018-07-18] MEDS: lactobacillus rhamnosus 10,000 MMU CELLS/CAPSULE PO SCH ×2 (07:48→19:47)
[2018-07-18] MEDS: K and/or MAG REPLACEMENT MC SCH (08:00)
[2018-07-18] MEDS: normal saline 1000ml 1,000 ML IV SCH (08:02)
[2018-07-18] MEDS ORDERED: levoFLOXACIN 500mg tablet PO ONE (09:30)
[2018-07-18 10:00] VITALS: BP 113/85
[2018-07-18] MEDS ORDERED: levoFLOXACIN 500mg tablet PO SCH (11:00)
--- NOTE | 2018-07-18 16:17 | NUR ---
patient stated "If deion doesnt come tomorrow, that's it, I'm getting a divorce, I'll call my gyroscopic instrument mechanic and be done." When asked where her works she states that he works "here, at the hospital, he's a doctor."
[2018-07-18 18:00] VITALS: BP 125/77
--- NOTE | 2018-07-18 18:15 | NUR ---
Problems reprioritized. Patient report given, questions answered & plan of care reviewed with SAYDA Zheng.
--- NOTE | 2018-07-18 18:25 | NUR ---
Report given to Amanda ALFREDO
--- NOTE | 2018-07-18 18:50 | NUR ---
Student documentation: I have reviewed and agree with all interventions, assessments performed and documented by Heidi VIRAMONTES. Student Medication Administration: For this medication-pass time frame, all medication were reviewed, dispensed, administered and documented per hospital policy by Heidi VIRAMONTES.
[2018-07-18] MEDS: diphenhydrAMINE 25mg capsule PO PRN (19:46)
[2018-07-18] MEDS: metroNIDAZOLE 500mg tablet PO SCH (20:07)
[2018-07-18] MEDS: insulin glargine (Lantus) pen - multi-dose SQ SCH (21:00)
[2018-07-18 22:00] VITALS: BP 116/86
--- NOTE | 2018-07-19 05:58 | NUR ---
pt. had no issue overnight.She slept good.She wanted to go home.
[2018-07-19 06:26] LABS: BASOPHILS % (AUTO) 0.7 % (0-1); EOSINOPHILS # (AUTO) 0.1 X10'3 (0-0.9); EOSINOPHILS % (AUTO) 1.4 % (0-6); HEMATOCRIT 38.9 % (35.0-45.0); HEMOGLOBIN 12.8 g/dl (12.0-16.0); LYMPHOCYTES # (AUTO) 2.8 X10'3 (1.1-4.8); LYMPHOCYTES % (AUTO) 44.7 % (21-51); MEAN PLATELET VOLUME 6.3 FL (7.4-10.4); MONOCYTES # (AUTO) 0.5 X10'3 (0-0.9); MONOCYTES % (AUTO) 8.8 % (2-12); NEUTROPHILS # (AUTO) 2.8 X10'3 (1.8-7.7); NEUTROPHILS % (AUTO) 44.4 % (42-75); PLATELET COUNT 381 X10'3 (140-440); RED BLOOD COUNT 4.41 X10'6 (4.20-5.60); RED CELL DISTRIBUTION WIDTH 14.7 % (11.5-14.5); WHITE BLOOD COUNT 6.2 X10'3 (4.5-11.0)
--- NOTE | 2018-07-19 06:32 | NUR ---
Problems reprioritized. Patient report given, questions answered & plan of care reviewed with SAYDA Canales.
[2018-07-19 06:45] LABS: ALANINE AMINOTRANSFERASE 32 U/L (12-78); ALBUMIN 3.4 G/DL (3.4-5.0); ALBUMIN/GLOBULIN RATIO 0.7 (1.1-1.5); ALKALINE PHOSPHATASE 50 IU/L (46-116); ANION GAP 6 (8-16); ASPARTATE AMINO TRANSFERASE 31 U/L (10-37); BILIRUBIN,TOTAL 0.2 MG/DL (0.1-1.0); BLOOD UREA NITROGEN 21 MG/DL (7-18); BUN/CREATININE RATIO 24.7 (6.6-38.0); CHLORIDE 103 MMOL/L (99-107); CREATININE 0.85 MG/DL (0.40-0.90); GLUCOSE 88 MG/DL (70-104); MAGNESIUM 2.2 MG/DL (1.5-2.4); POTASSIUM 4.5 MMOL/L (3.5-5.1); SODIUM 139 MMOL/L (135-145); TOTAL CARBON DIOXIDE 29.8 MMOL/L (24-32); TOTAL PROTEIN 8.4 G/DL (6.4-8.2); eGFR 74 ML/MIN
--- NOTE | 2018-07-19 06:48 | NUR ---
operations supervisor did not reassess pain pill.
[2018-07-19] MEDS: oxyCODONE/APAP 10/325mg tablet PO PRN ×3 (06:57→21:34)
[2018-07-19 07:03] VITALS: BP 94/57
[2018-07-19] MEDS: K and/or MAG REPLACEMENT MC SCH (08:00)
[2018-07-19] MEDS: nicotine 14mg patch - 24hr TD SCH (08:06)
[2018-07-19] MEDS: lactobacillus rhamnosus 10,000 MMU CELLS/CAPSULE PO SCH ×2 (08:07→20:15)
[2018-07-19] MEDS: metroNIDAZOLE 500mg tablet PO SCH ×2 (08:08→13:19)
[2018-07-19] MEDS: gabapentin 100mg capsule PO SCH ×3 (08:08→20:15)
[2018-07-19] MEDS: enoxaparin 40mg/0.4ml syringe SQ SCH (08:10)
[2018-07-19 08:20] VITALS: BP 121/73
[2018-07-19] MEDS ORDERED: levoFLOXACIN 500mg tablet PO SCH (11:00)
--- NOTE | 2018-07-19 11:49 | NUR ---
Student documentation: I have reviewed all interventions, assessments performed and documented by Shelley Sellers. Student Medication Administration: For this medication-pass time frame, all medication were reviewed, dispensed, administered and documented per hospital policy by Shelley Sellers.
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
--- NOTE | 2018-07-19 14:21 | NUR ---
Initial: Pt admit with necrotic ulcer to right heel, to get debridement and f/u with outpatient wound care per MD notes. Pt currently on a CHO controlled diet with documented PO intake 100% meeting nutrient needs. [facility] 07/18. Will continue to follow. Recommendations: 1) Continue with CHO controlled diet with advancement to regular per MD 2) Monitor need for ONS 3) Wt per rx Addendum: 07/19/18 at [address] Amended: Links added.
[2018-07-19] MEDS ORDERED: CefTRIAXone/D5W-Rocephin 1gm 50 ML IV ONE (14:25)
[2018-07-19] MEDS ORDERED: metroNIDAZOLE-Flagyl 500mg/NS 100 ML IV SCH (16:00)
[2018-07-19 18:00] VITALS: BP 128/80
[2018-07-19] MEDS: insulin glargine (Lantus) pen - multi-dose SQ SCH (21:00)
[2018-07-19] MEDS: metroNIDAZOLE-Flagyl 500mg/NS 100 ML IV SCH (23:21)
--- NOTE | 2018-07-20 | NUR ---
Patient in room ORTHO 4018. I have received report from SAYDA Carnes and had the opportunity to ask questions and assume patient care.
[2018-07-20 06:00] VITALS: BP 132/48
--- NOTE | 2018-07-20 06:37 | NUR ---
Patient in room ORTHO 4018. I have received report from Amanda ALFREDO and had the opportunity to ask questions and assume patient care.
[2018-07-20] MEDS: gabapentin 100mg capsule PO SCH ×2 (07:12→12:36)
[2018-07-20] MEDS: lactobacillus rhamnosus 10,000 MMU CELLS/CAPSULE PO SCH (07:12)
[2018-07-20] MEDS: nicotine 14mg patch - 24hr TD SCH (07:14)
[2018-07-20] MEDS: enoxaparin 40mg/0.4ml syringe SQ SCH (07:16)
[2018-07-20] MEDS: K and/or MAG REPLACEMENT MC SCH (07:29)
[2018-07-20] MEDS ORDERED: CefTRIAXone/D5W-Rocephin 1gm 50 ML IV SCH (08:00)
[2018-07-20] MEDS: oxyCODONE/APAP 10/325mg tablet PO PRN ×2 (08:19→15:07)
[2018-07-20] MEDS: metroNIDAZOLE-Flagyl 500mg/NS 100 ML IV SCH ×2 (08:40→17:32)
[2018-07-20 10:10] VITALS: BP 105/75
--- NOTE | 2018-07-20 14:49 | NUR ---
report called to Bre Flowers
--- NOTE | 2018-07-20 16:22 | NUR ---
Student documentation: I have reviewed and agree with all interventions, assessments performed and documented by SN Nelda.
--- NOTE | 2018-07-20 18:23 | NUR ---
Patient discharged to [facility] transported by [facility], patient stable for transfer, PICC line left in but PIV taken out, all belongings sent with patient
[2018-07-21] MEDS ORDERED: CefTRIAXone 2gm/D5W 50ml 50 ML IV SCH (08:00)
== END 2018-07-20 18:00 | DRG 314 ==
LOC: ER 10:07 → ORTHO 4S 14:42 → CMPBEDREQ 19:03
PROVIDERS: ADMIT Family Medicine; ATTEND Surgery
PROC: BQ3DYZZ Magnetic Resonance Imaging (MRI) of Right Lower Leg using Other Contrast (ICD-10-PCS; 2018-07-16)
PROC: 0QBL0ZZ Excision of Right Tarsal, Open Approach (ICD-10-PCS; principal; 2018-07-19)
DX: E11.69 Type 2 diabetes mellitus with other specified complication (principal); M86.8X7 Other osteomyelitis, ankle and foot; E11.52 Type 2 diabetes mellitus with diabetic peripheral angiopathy with gangrene; T34.832A Frostbite with tissue necrosis of left toe(s), initial encounter; T34.831A Frostbite with tissue necrosis of right toe(s), initial encounter; F15.90 Other stimulant use, unspecified, uncomplicated; F17.210 Nicotine dependence, cigarettes, uncomplicated; F22 Delusional disorders; L02.611 Cutaneous abscess of right foot; L03.115 Cellulitis of right lower limb; Z60.2 Problems related to living alone; L89.619 Pressure ulcer of right heel, unspecified stage; X31.XXXA Exposure to excessive natural cold, initial encounter; Y93.89 Activity, other specified; Y92.89 Other specified places as the place of occurrence of the external cause; Y99.8 Other external cause status; Z59.0 Homelessness; Z80.8 Family history of malignant neoplasm of other organs or systems; Z86.14 Personal history of Methicillin resistant Staphylococcus aureus infection; Z87.440 Personal history of urinary (tract) infections; Z88.0 Allergy status to penicillin; Z71.6 Tobacco abuse counseling; Z79.899 Other long term (current) drug therapy
CPT/HCPCS: 36415; 36569; 73630; 73720; 76937; 80053; 80202; 80305; 82948; 83036; 83605; 83735; 85025; 85651; 86140; 87040; 87070; 87077; 87186; 93922; 93926; 99285; A9579; G0378; J0692; J0696; J1650; J1815; J2270; J3370; J3490; J7030; Q0163

== ENCOUNTER 2018-12-17 11:24 | Emergency (ER) | payer MEDICAID ==
[~2018-12-17] VITALS: Ht 165.1 cm; Wt 54.5 kg
[2018-12-17 12:13] VITALS: BP 123/78
== END 2018-12-17 12:15 | disposition home or self-care (01) ==
LOC: ER 11:24
DX: M25.50 Pain in unspecified joint (principal); E11.9 Type 2 diabetes mellitus without complications; F15.90 Other stimulant use, unspecified, uncomplicated; Z86.14 Personal history of Methicillin resistant Staphylococcus aureus infection; Z60.2 Problems related to living alone; Z59.0 Homelessness; Z88.0 Allergy status to penicillin
CPT/HCPCS: 99283

== ENCOUNTER 2018-12-24 13:10 | Emergency (ER) | payer MEDICAID ==
[~2018-12-24] VITALS: Ht 160 cm; Wt 54.0 kg
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
--- NOTE | 2018-12-24 13:50 | NUR ---
KEVIN IN ROOM TALKING TO PT.
--- NOTE | 2018-12-24 14:05 | NUR ---
[employer] AND PA IN ROOM
[2018-12-24 15:00] VITALS: BP 125/84
== END 2018-12-24 15:05 | disposition home or self-care (01) ==
LOC: ER 13:10
DX: R41.3 Other amnesia (principal); F15.10 Other stimulant abuse, uncomplicated; E11.9 Type 2 diabetes mellitus without complications; Z86.14 Personal history of Methicillin resistant Staphylococcus aureus infection; Z88.0 Allergy status to penicillin; Z60.2 Problems related to living alone; Z59.0 Homelessness
CPT/HCPCS: 99284

== ENCOUNTER 2018-12-26 19:13 | Emergency (ER) | payer MEDICAID ==
[~2018-12-26] VITALS: Ht 162.6 cm; Wt 54.5 kg
[2018-12-26 19:23] VITALS: BP 173/89
--- NOTE | 2018-12-26 19:28 | NUR ---
PT ASKED REGISTRATION IF SHE COULD LEAVE. PT LEFT THE BUILDING.
== END 2018-12-26 20:04 | disposition left against medical advice (07) ==
LOC: ER 19:14
DX: Z53.21 Procedure and treatment not carried out due to patient leaving prior to being seen by health care provider (principal)

== ENCOUNTER 2018-12-29 10:49 | Inpatient (IN) | payer MEDICAID ==
[2018-12-29] VITALS (9 sets, daily range): BP systolic 93–137; BP diastolic 64–83
[~2018-12-29] VITALS: Ht 165.1 cm; Wt 68.1 kg
[2018-12-29] MEDS ORDERED: normal saline 1000ML IV soln IVB ONE (10:55)
[2018-12-29] MEDS ORDERED: LORazepam 2 mg/ml vial IV ONE (11:15)
--- NOTE | 2018-12-29 11:20 | NUR ---
After damon placement, Pt found to have temp of 90.7. Warming blanket applied to patient.
[2018-12-29] MEDS ORDERED: ketamine 50 mg/ml 10ml vial IV ONE (11:30)
--- NOTE | 2018-12-29 11:33 | NUR ---
PATIENT SEDATED WITH ATIVAN WITH FAIR RESULTS. RESP THERAPY AT BS, IV INFUSING WELL IN RT BREAST. BP 137/92, HR 116, RR 30, TEMP CATH94.5 SYED. O2 PER REBREATHER MASK.
[2018-12-29] MEDS ORDERED: CefTRIAXone 2gm/D5W 50ml 50 ML IV ONE (11:35)
--- NOTE | 2018-12-29 11:36 | NUR ---
DR. RYAN AT THE BEDSIDE TO INTUBATE PATIENT. BP 147/92, HR 123, RR 23, T 94.8 SYED, O2 SAT 92%
[2018-12-29] MEDS ORDERED: FENTANYL-0.9 % NACL/PF 100 ML IV PRN ×2 (11:38→13:06)
[2018-12-29] MEDS ORDERED: midazolam 100mg in NS 100ml 100 ML IV PRN ×2 (11:38→13:06)
[2018-12-29] MEDS ORDERED: propofol 1000mg/100ml bottle 100 ML IV SCH (11:38)
[2018-12-29] MEDS ORDERED: midazolam 2 mg/2 ml injection IV ONE ×2 (11:40→13:10)
[2018-12-29] MEDS ORDERED: fentaNYL/PF 50MCG/1 ML 2ML syringe IV PRN ×2 (11:40→13:10)
--- NOTE | 2018-12-29 11:40 | NUR ---
INTUBATED WITH #8 ENDOTRACHEA TUBE AFTER SEDATION WITH ROCURONIUM 20 AND ETOMIDATE 70. TOLERATED WELL.
[2018-12-29 11:43] LABS: BASOPHILS # (AUTO) 0.1 X10'3 (0-0.2); BASOPHILS % (AUTO) 0.3 % (0-1); EOSINOPHILS % (AUTO) 0.1 % (0-6); HEMATOCRIT 40.9 % (35.0-45.0); HEMOGLOBIN 12.9 g/dl (12.0-16.0); LYMPHOCYTES # (AUTO) 1.4 X10'3 (1.1-4.8); MEAN CORPUSCULAR HEMOGLOBIN 29.2 PG (27.0-31.0); MEAN CORPUSCULAR HGB CONC 31.5 g/dL (33.0-36.5); MEAN CORPUSCULAR VOLUME 92.9 FL (78-98); MEAN PLATELET VOLUME 6.8 FL (7.4-10.4); MONOCYTES # (AUTO) 1.1 X10'3 (0-0.9); MONOCYTES % (AUTO) 5.2 % (2-12); NEUTROPHILS # (AUTO) 17.8 X10'3 (1.8-7.7); NEUTROPHILS % (AUTO) 87.4 % (42-75); PLATELET COUNT 359 X10'3 (140-440); RED CELL DISTRIBUTION WIDTH 14.4 % (11.5-14.5); WHITE BLOOD COUNT 20.4 X10'3 (4.5-11.0)
--- NOTE | 2018-12-29 11:43 | NUR ---
PTS PUBLIC GUARDIAN GEMA OLIVER WAS WAS CONTACTED AT [phone] AND INFORMED US THAT PT IS NO LONGER CONSERVED.
--- NOTE | 2018-12-29 11:45 | NUR ---
PLACED ON VENT PER RT. BP 100/74, HR 119, RR 18, O2 SAT 100%. REMAINS CALM AND SEDATED AT PRESENT.
[2018-12-29 11:46] LABS: CLARITY,URINE SLIGHTLY CLOUDY (Clear); COLOR,URINE YELLOW (Yellow); GLUCOSE, URINE NEGATIVE (Neg); KETONES,URINE NEGATIVE (Neg); LEUKOCYTE ESTERASE ,URINE NEGATIVE (Neg); NITRITES, URINE NEGATIVE (Neg); OCCULT BLOOD,URINE LARGE (Neg); PH,URINE 5.5 (4.8-8.0); PROTEIN,URINE 30 mg/dl (Neg); UROBILINOGEN,URINE 0.2 E.U/dL (0.2-1.0)
[2018-12-29 11:47] LABS: UA COLLECTION TYPE FOLEY CATH
[2018-12-29] MEDS ORDERED: vancomycin/NS 1 GM ADD-VANTAGE 250 ML IV ONE (11:50)
[2018-12-29 11:52] LABS: RBC,URINE 0-2 /HPF (0-2); SQUAMOUS EPITHELIAL CELL,UR MODERATE /LPF (FEW)
[2018-12-29 11:53] LABS: AMORPHOUS URATES 3+; BACTERIA,URINE 3+ /HPF (Neg)
[2018-12-29 11:54] LABS: HYALINE CASTS 0-3 /LPF (NEGATIVE)
--- NOTE | 2018-12-29 11:58 | NUR ---
CENTRAL LINE QUAD CATHETER INSERTED PER DR. RYAN.
[2018-12-29 11:59] LABS: PARTIAL THROMBOPLASTIN TIME 24 SECONDS (22-32)
[2018-12-29 11:59] LABS: URINE AMPHETAMINE SCREEN POSITIVE (Neg); URINE BARBITUATE SCREEN NEGATIVE (Neg); URINE BENZODIAZEPINES SCREEN NEGATIVE (Neg); URINE CANNABINOID SCREEN POSITIVE (Neg); URINE COCAINE SCREEN NEGATIVE (Neg); URINE METHADONE SCREEN POSITIVE (Neg); URINE OPIATE SCREEN NEGATIVE (Neg); URINE PHENCYCLIDINE SCREEN NEGATIVE (Neg)
[2018-12-29] MEDS ORDERED: etomidate 2mg/ml inj. ONE (12:00)
[2018-12-29] MEDS ORDERED: rocuronium 10mg/ml inj IV ONE (12:00)
[2018-12-29] MEDS ORDERED: sod chloride 0.9% 10ml flush syringe IV ONE (12:00)
--- NOTE | 2018-12-29 12:05 | NUR ---
PORTABLE CXR DONE TO CHECK PLACEMENT OF ENDOTRACHEAL TUBE AND CENTRAL LINE.
[2018-12-29 12:09] LABS: ALANINE AMINOTRANSFERASE 87 U/L (12-78); ALBUMIN 3.6 G/DL (3.4-5.0); ALBUMIN/GLOBULIN RATIO 0.9 (1.1-1.5); ALKALINE PHOSPHATASE 83 IU/L (46-116); ANION GAP 19 (8-16); ASPARTATE AMINO TRANSFERASE 151 U/L (10-37); BILIRUBIN,TOTAL 0.3 MG/DL (0.1-1.0); BLOOD UREA NITROGEN 21 MG/DL (7-18); BUN/CREATININE RATIO 14.9 (6.6-38.0); CHLORIDE 107 MMOL/L (99-107); CREATININE 1.41 MG/DL (0.40-0.90); GLUCOSE 147 MG/DL (70-104); POTASSIUM 3.5 MMOL/L (3.5-5.1); SODIUM 150 MMOL/L (135-145); TOTAL CARBON DIOXIDE 23.6 MMOL/L (24-32); TOTAL PROTEIN 7.8 G/DL (6.4-8.2); eGFR 41 ML/MIN
[2018-12-29 12:14] LABS: ETHANOL < 0.010 GM/DL (0.0-0.010)
[2018-12-29] MEDS ORDERED: normal saline 1000ml 1,000 ML IV ONE (12:15)
[2018-12-29 12:16] LABS: CREATINE KINASE 1565 U/L (26-192)
--- NOTE | 2018-12-29 12:20 | NUR ---
critical value, lactic acid 12.6, Dr Ramírez and Mariela ALFREDO aware
[2018-12-29] MEDS ORDERED: NORepinephrine inj. 16 MG in normal saline 500ml IV soln 484 ML IV SCH ×2 (13:00→13:02)
[2018-12-29] MEDS ORDERED: UNABLE TO OBTAIN (13:07)
[2018-12-29] MEDS: NORepinephrine 8mg/ 250ml NS 250 ML IV SCH ×2 (13:09→15:29)
[2018-12-29] MEDS ORDERED: potassium Cl 20mEq/100mL bag 100 ML IV PRN (13:10)
[2018-12-29] MEDS ORDERED: ipratropium/albuterol 3ml nebule NEB PRN (13:10)
[2018-12-29] MEDS ORDERED: ondansetron/PF 4mg/2ml inj IV PRN (13:10)
[2018-12-29] MEDS ORDERED: iohexol 300mg/ml 100ml inj. ONE (13:10)
[2018-12-29] MEDS ORDERED: potassium CL 10mEq/100ml bag 100 ML IV PRN ×2 (13:10)
--- NOTE | 2018-12-29 13:18 | NUR ---
BP DROPPING TO 68/45. DR. RYAN NOTIFIED OF CONDITION AND NEW ORDERS RECEIVED. STARTED ON NOREPINEPHRINE DRIP AT 4 MCG/MIN.
[2018-12-29] MEDS ORDERED: vancomycin/NS 1 GM ADD-VANTAGE 250 ML IV SCH (13:20)
--- NOTE | 2018-12-29 13:24 | NUR ---
RELIEVING RN FOR LUNCH, LEVOPHED GTT INCREASED TO 6MCG/MIN, MAP 54, 77/38, HR 97, SR ON MONITOR NO ECTOPY, 95% ON VENTILATOR FIO2 70%, SYED DRAINING CLEAR YELLOW URINE, ARIANNA HUANG ON PT, SYED TEMP 96.6, DR CARRASCO AT BEDSIDE TO EVAL PT
--- NOTE | 2018-12-29 13:28 | NUR ---
BP 84/60, MAP 69
--- NOTE | 2018-12-29 13:59 | NUR ---
PT IS RESTING QUIETLY, EVEN RISE AND FALL OF CHEST, PT IS STARTING TO MOVE LEGS
--- NOTE | 2018-12-29 14:02 | NUR ---
REPORT HAS BEEN CALLED, WILL GO TO CT FIRST AND THEN ROOM 2008, PT ON MONITOR WITH RT, RN, SENIOR BIOSTATISTICIAN/GROUP LEADER
--- NOTE | 2018-12-29 14:10 | NUR ---
[address] on monitor, 100% pulse ox, 101/67, hr [address], 97/47, 100% pulse ox, HR 100 1430 pt to ICU, BP 104/72, 100% pulse ox, HR 98,
[2018-12-29] MEDS: ipratropium/albuterol 3ml nebule NEB SCH ×3 (14:57→23:11)
[2018-12-29] MEDS ORDERED: NO HOME MEDS (15:10)
[2018-12-29] MEDS: cefepime 1GM/NS ADD-VANTAGE 100 ML IV SCH ×2 (15:24→16:00)
[2018-12-29] MEDS: normal saline 1000ml 1,000 ML IV SCH ×3 (15:25→17:38)
[2018-12-29] MEDS ORDERED: DOBUTamine-DoBUTrex 500mg/D5W 250 ML IV SCH (17:10)
[2018-12-29] MEDS ORDERED: DOBUTamine-DoBUTrex 500mg/D5W 250 ML IV ONE (17:13)
[2018-12-29] MEDS ORDERED: normal saline 1000ml 1,000 ML IV SCH (18:10)
--- NOTE | 2018-12-29 18:30 | NUR ---
RECIEVED REPORT FROM Elida ALFREDO NO QUESTIONS OR CONCERNS AFTER ASSUMING CARE
--- NOTE | 2018-12-29 18:54 | NUR ---
received pt at around 1500 from ER. pt's UO declined around 1630, received order from Dr. Nowak to give 2L NS, order noted. Blood sugar 61, second one 70, per Dr. Nowak started pt on Tube feeding. Order noted. Blood sugar at this time is 66, Reported to Lele (RN). he called Dr. Nowak and received an order per his order to give 1/2 amp of D50. order noted.
[2018-12-29] MEDS ORDERED: dextrose 50%-water 50ml dispensing syringe IV ONE ×2 (19:00→19:01)
--- NOTE | 2018-12-29 19:30 | NUR ---
March MANAGEMENT ADVISOR verbalized to advance tube feeding to 50mL/hr, dietary consult in a.m.
[2018-12-29] MEDS: famotidine/PF 10 mg/ml inj IV SCH (20:54)
[2018-12-29] MEDS: docusate sod 100mg capsule PO SCH (20:55)
[2018-12-29] MEDS: heparin, porcine 5000 units/ml vial SQ SCH (20:56)
--- NOTE | 2018-12-29 21:41 | NUR ---
patient supine in bed eyes closed rr even un labored no observable s/s of acute stress at time, patient is able to follow verbal commands using hands and head to communicate yes and no to questions
[2018-12-29] MEDS: sennosides/docusate sodium tablet PO SCH (21:44)
[2018-12-30] VITALS (23 sets, daily range): BP systolic 90–138; BP diastolic 55–94
[2018-12-30] MEDS: cefepime 1GM/NS ADD-VANTAGE 100 ML IV SCH ×3 (00:46→15:49)
--- NOTE | 2018-12-30 00:58 | NUR ---
PATIENTS RR EVEN UN LABORED PATIENT TEMP ELEVATING SLIGHTLY TO 38.0 APPLIED ICE PACKS TO GROIN AND COLD WASH CLOTH ON FORE HEAD, WILL REASSESS AND GET MEDICATION IF ICE/WASH CLOTHES DO NO WORK
[2018-12-30] MEDS: normal saline 1000ml 1,000 ML IV SCH ×4 (01:13→22:56)
[2018-12-30] MEDS: vancomycin/NS 1 GM ADD-VANTAGE 250 ML IV SCH ×2 (01:58→13:55)
[2018-12-30] MEDS: acetaminophen 325mg tablet PO PRN ×3 (02:16→18:29)
--- NOTE | 2018-12-30 02:53 | NUR ---
patient id band not scanning with glucometer sent POC correction test request
[2018-12-30] MEDS: ipratropium/albuterol 3ml nebule NEB SCH ×4 (03:07→20:54)
[2018-12-30 05:05] LABS: BASOPHILS % (AUTO) 0.1 % (0-1); EOSINOPHILS % (AUTO) 0.1 % (0-6); HEMATOCRIT 29.6 % (35.0-45.0); HEMOGLOBIN 9.7 g/dl (12.0-16.0); LYMPHOCYTES # (AUTO) 0.7 X10'3 (1.1-4.8); LYMPHOCYTES % (AUTO) 9.8 % (21-51); MEAN CORPUSCULAR HEMOGLOBIN 29.6 PG (27.0-31.0); MEAN CORPUSCULAR HGB CONC 32.9 g/dL (33.0-36.5); MEAN CORPUSCULAR VOLUME 90.1 FL (78-98); MEAN PLATELET VOLUME 6.8 FL (7.4-10.4); MONOCYTES # (AUTO) 0.3 X10'3 (0-0.9); MONOCYTES % (AUTO) 3.4 % (2-12); NEUTROPHILS # (AUTO) 6.5 X10'3 (1.8-7.7); NEUTROPHILS % (AUTO) 86.6 % (42-75); PLATELET COUNT 206 X10'3 (140-440); RED BLOOD COUNT 3.29 X10'6 (4.20-5.60); RED CELL DISTRIBUTION WIDTH 13.8 % (11.5-14.5); WHITE BLOOD COUNT 7.5 X10'3 (4.5-11.0)
[2018-12-30 05:09] LABS: ALANINE AMINOTRANSFERASE 59 U/L (12-78); ALBUMIN 1.9 G/DL (3.4-5.0); ALBUMIN/GLOBULIN RATIO 0.8 (1.1-1.5); ALKALINE PHOSPHATASE 44 IU/L (46-116); ANION GAP 7 (8-16); ASPARTATE AMINO TRANSFERASE 82 U/L (10-37); BILIRUBIN,TOTAL 0.2 MG/DL (0.1-1.0); BLOOD UREA NITROGEN 11 MG/DL (7-18); BUN/CREATININE RATIO 15.5 (6.6-38.0); CALCIUM 6.6 MG/DL (8.5-10.1); CHLORIDE 117 MMOL/L (99-107); CREATININE 0.71 MG/DL (0.40-0.90); GLUCOSE 142 MG/DL (70-104); MAGNESIUM 1.3 MG/DL (1.5-2.4); SODIUM 147 MMOL/L (135-145); TOTAL CARBON DIOXIDE 23.2 MMOL/L (24-32); TOTAL PROTEIN 4.4 G/DL (6.4-8.2); eGFR > 90 ML/MIN
[2018-12-30 05:16] LABS: POTASSIUM 2.8 MMOL/L (3.5-5.1)
[2018-12-30] MEDS: potassium Cl 20mEq/100mL bag 100 ML IV PRN ×4 (05:35→10:24)
--- NOTE | 2018-12-30 06:17 | NUR ---
sbar to rula ALFREDO no questions or concerns after assuming care
[2018-12-30] MEDS: docusate sod 100mg capsule PO SCH ×2 (08:00→20:07)
[2018-12-30] MEDS: famotidine/PF 10 mg/ml inj IV SCH ×2 (08:21→20:07)
[2018-12-30] MEDS: heparin, porcine 5000 units/ml vial SQ SCH ×2 (08:22→20:07)
[2018-12-30] MEDS ORDERED: ipratropium/albuterol 3ml nebule NEB PRN (11:00)
[2018-12-30] MEDS ORDERED: racepinephrine 11.25mg/0.5ml nebule NEB PRN (11:00)
[2018-12-30] MEDS ORDERED: mineral oil/petrolatum ophthal oint EACHEYE SCH (14:00)
--- NOTE | 2018-12-30 14:54 | NUR ---
Pt admit with sepsis secondary to UTI or skin sores, shock, OBINNA, lactic acidosis, and probable drug overdose. Per MD notes pt takes methadone and her drug screen was positive for methamphetamines and cannabinoids. Pt was hypothermic on admission and was intubated and rewarmed per MD notes. OBINNA and lactic acidosis resolved per MD notes. During the time of intubation pt was receiving Vital High Protein at 50 mL/hr and tolerating with low GRV however pt has just been extubated and TF discontinued. Per RN pt to remain NPO at this time as pt not passing BSS with RNST has been consulted. No current plans to restart TF at this time. Pt with hx T2DM, last A1c was 5.9 07/14/18, pending new A1c this visit. Will continue to follow. Recommendations: 1) Advance to CHO controlled diet as medically indicated per ST recs if passes BSS 2) Monitor need for DM education, pending A1c results 3) IF pt does not pass BSS and to restart TF, continuous Vital AF with goal rate of 60 mL/hr 4) Routine bowel care 5) Wt per rx Addendum: 12/30/18 at [address] Amended: Links added.
--- NOTE | 2018-12-30 15:00 | NUR ---
Nursing bedside swallow performed; gag improved and able to swallow with continued encouragement to tuck in chin to swallow.
--- NOTE | 2018-12-30 18:10 | NUR ---
Patient's blood sugar 71; given cranberry juice; waiting for dinner tray to arrive.
--- NOTE | 2018-12-30 18:30 | NUR ---
Patient in room CICU 2008. I have received report from SAYDA Chowdhury and had the opportunity to ask questions and assume patient care.
--- NOTE | 2018-12-30 18:30 | NUR ---
Problems reprioritized. Patient report given, questions answered & plan of care reviewed with Melissa ALFREDO.
[2018-12-30] MEDS: lactobacillus rhamnosus 10,000 MMU CELLS/CAPSULE PO SCH (20:07)
[2018-12-30 20:43] LABS: COLOR,URINE YELLOW (Yellow); GLUCOSE, URINE NEGATIVE (Neg); KETONES,URINE NEGATIVE (Neg); LEUKOCYTE ESTERASE ,URINE NEGATIVE (Neg); NITRITES, URINE NEGATIVE (Neg); OCCULT BLOOD,URINE MODERATE (Neg); PH,URINE 5.5 (4.8-8.0); PROTEIN,URINE TRACE mg/dl (Neg); UROBILINOGEN,URINE 0.2 E.U/dL (0.2-1.0)
[2018-12-30 20:46] LABS: CLARITY,URINE SLIGHTLY CLOUDY (Clear); UA COLLECTION TYPE FOLEY CATH
[2018-12-30 20:52] LABS: BACTERIA,URINE FEW /HPF (Neg); MUCUS STRANDS FEW /LPF (Neg); RBC,URINE 0-2 /HPF (0-2); SQUAMOUS EPITHELIAL CELL,UR FEW /LPF (FEW); WBC,URINE 0-4 /HPF (0-4)
[2018-12-30] MEDS: sennosides/docusate sodium tablet PO SCH (21:01)
[2018-12-30 21:22] LABS: UA EOSINOPHILS NO EOS /HPF
[2018-12-31] VITALS (16 sets, daily range): BP systolic 115–158; BP diastolic 50–99
[2018-12-31] MEDS: cefepime 1GM/NS ADD-VANTAGE 100 ML IV SCH ×2 (00:01→07:37)
[2018-12-31] MEDS: vancomycin/NS 1 GM ADD-VANTAGE 250 ML IV SCH (01:03)
[2018-12-31] MEDS: ipratropium/albuterol 3ml nebule NEB SCH ×4 (02:28→19:58)
[2018-12-31 03:13] LABS: BASOPHILS % (AUTO) 0.3 % (0-1); EOSINOPHILS # (AUTO) 0.1 X10'3 (0-0.9); EOSINOPHILS % (AUTO) 0.8 % (0-6); HEMATOCRIT 27.5 % (35.0-45.0); HEMOGLOBIN 9.2 g/dl (12.0-16.0); LYMPHOCYTES # (AUTO) 1.5 X10'3 (1.1-4.8); LYMPHOCYTES % (AUTO) 20.5 % (21-51); MEAN CORPUSCULAR HEMOGLOBIN 29.9 PG (27.0-31.0); MEAN CORPUSCULAR HGB CONC 33.4 g/dL (33.0-36.5); MEAN CORPUSCULAR VOLUME 89.6 FL (78-98); MEAN PLATELET VOLUME 7.2 FL (7.4-10.4); MONOCYTES # (AUTO) 0.3 X10'3 (0-0.9); MONOCYTES % (AUTO) 4.8 % (2-12); NEUTROPHILS # (AUTO) 5.2 X10'3 (1.8-7.7); NEUTROPHILS % (AUTO) 73.6 % (42-75); PLATELET COUNT 172 X10'3 (140-440); RED BLOOD COUNT 3.07 X10'6 (4.20-5.60); RED CELL DISTRIBUTION WIDTH 13.9 % (11.5-14.5); WHITE BLOOD COUNT 7.1 X10'3 (4.5-11.0)
[2018-12-31 03:44] LABS: ALANINE AMINOTRANSFERASE 57 U/L (12-78); ALBUMIN 2.1 G/DL (3.4-5.0); ALBUMIN/GLOBULIN RATIO 0.6 (1.1-1.5); ALKALINE PHOSPHATASE 51 IU/L (46-116); ANION GAP 7 (8-16); ASPARTATE AMINO TRANSFERASE 75 U/L (10-37); BILIRUBIN,TOTAL 0.2 MG/DL (0.1-1.0); BLOOD UREA NITROGEN 5 MG/DL (7-18); BUN/CREATININE RATIO 7.9 (6.6-38.0); CHLORIDE 112 MMOL/L (99-107); CREATININE 0.63 MG/DL (0.40-0.90); GLUCOSE 74 MG/DL (70-104); MAGNESIUM 1.9 MG/DL (1.5-2.4); PHOSPHORUS 1.8 MG/DL (2.3-4.5); POTASSIUM 3.4 MMOL/L (3.5-5.1); SODIUM 144 MMOL/L (135-145); TOTAL CARBON DIOXIDE 25.3 MMOL/L (24-32); TOTAL PROTEIN 5.4 G/DL (6.4-8.2); eGFR > 90 ML/MIN
[2018-12-31] MEDS: potassium Cl 20 mEq SR tablet PO PRN ×4 (04:02→19:48)
[2018-12-31 04:10] LABS: CREATINE KINASE 1326 U/L (26-192)
--- NOTE | 2018-12-31 06:31 | NUR ---
Problems reprioritized. Patient report given, questions answered & plan of care reviewed with SAYDA Armando.
--- NOTE | 2018-12-31 06:35 | NUR ---
Patient in room [facility] 2008. I have received report from Melissa ALFREDO and had the opportunity to ask questions and assume patient care. Addendum: 12/31/18 at 0635 by Prabha Alexandre RN Amended: Links added.
[2018-12-31] MEDS: acetaminophen 325mg tablet PO PRN ×2 (06:45→19:50)
[2018-12-31] MEDS: normal saline 1000ml 1,000 ML IV SCH (06:57)
[2018-12-31] MEDS: heparin, porcine 5000 units/ml vial SQ SCH ×2 (07:39→19:48)
[2018-12-31] MEDS: docusate sod 100mg capsule PO SCH ×2 (07:39→19:47)
[2018-12-31] MEDS: famotidine/PF 10 mg/ml inj IV SCH (07:39)
[2018-12-31] MEDS: lactobacillus rhamnosus 10,000 MMU CELLS/CAPSULE PO SCH ×2 (07:39→19:47)
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
[2018-12-31] MEDS: levoFLOXACIN 500mg tablet PO SCH (10:50)
--- NOTE | 2018-12-31 11:33 | NUR ---
DM Consult: Pt A1C results <7 and not appropriate for DM ed at this time. Addendum: 12/31/18 at [address] Amended: Links added.
--- NOTE | 2018-12-31 12:27 | NUR ---
sugar plantation manager Kenzie spoke with pt. re plans once dc'd. List of resources given to pt.
[2018-12-31] MEDS ORDERED: VANCOMYCIN LEVEL IV ONE (12:30)
--- NOTE | 2018-12-31 14:07 | NUR ---
Pt. transferred to 348 via w/c after giving report to Yolanda ALFREDO.
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
--- NOTE | 2018-12-31 18:45 | NUR ---
Patient in room [facility] 348. I have received report from Yolanda ALFREDO and had the opportunity to ask questions and assume patient care.
[2018-12-31] MEDS: sennosides/docusate sodium tablet PO SCH (21:15)
[2019-01-01] VITALS: BP 140/90
[2019-01-01] MEDS: ipratropium/albuterol 3ml nebule NEB SCH ×4 (02:25→20:32)
[2019-01-01] MEDS: acetaminophen 325mg tablet PO PRN ×2 (03:02→19:23)
--- NOTE | 2019-01-01 04:10 | NUR ---
All lumens to R IJ flush but none will give blood.
[2019-01-01 06:27] LABS: BASOPHILS % (AUTO) 0.2 % (0-1); EOSINOPHILS # (AUTO) 0.1 X10'3 (0-0.9); EOSINOPHILS % (AUTO) 0.8 % (0-6); HEMATOCRIT 26.4 % (35.0-45.0); HEMOGLOBIN 8.9 g/dl (12.0-16.0); LYMPHOCYTES # (AUTO) 1.5 X10'3 (1.1-4.8); LYMPHOCYTES % (AUTO) 21.6 % (21-51); MEAN CORPUSCULAR HGB CONC 33.8 g/dL (33.0-36.5); MEAN CORPUSCULAR VOLUME 88.6 FL (78-98); MONOCYTES # (AUTO) 0.5 X10'3 (0-0.9); MONOCYTES % (AUTO) 6.7 % (2-12); NEUTROPHILS # (AUTO) 4.9 X10'3 (1.8-7.7); NEUTROPHILS % (AUTO) 70.7 % (42-75); PLATELET COUNT 184 X10'3 (140-440); RED BLOOD COUNT 2.98 X10'6 (4.20-5.60); WHITE BLOOD COUNT 6.9 X10'3 (4.5-11.0)
--- NOTE | 2019-01-01 06:30 | NUR ---
Problems reprioritized. Patient report given, questions answered & plan of care reviewed with Winsome RN.
--- NOTE | 2019-01-01 06:32 | NUR ---
Patient in room [facility] 348. I have received report from SAYDA Shin and had the opportunity to ask questions and assume patient care.
[2019-01-01 06:33] LABS: ALANINE AMINOTRANSFERASE 47 U/L (12-78); ALBUMIN 2.2 G/DL (3.4-5.0); ALBUMIN/GLOBULIN RATIO 0.6 (1.1-1.5); ALKALINE PHOSPHATASE 60 IU/L (46-116); ANION GAP 7 (8-16); ASPARTATE AMINO TRANSFERASE 42 U/L (10-37); BILIRUBIN,TOTAL 0.2 MG/DL (0.1-1.0); BLOOD UREA NITROGEN 5 MG/DL (7-18); BUN/CREATININE RATIO 7.9 (6.6-38.0); CALCIUM 8.5 MG/DL (8.5-10.1); CHLORIDE 111 MMOL/L (99-107); CREATININE 0.63 MG/DL (0.40-0.90); GLUCOSE 92 MG/DL (70-104); MAGNESIUM 1.9 MG/DL (1.5-2.4); POTASSIUM 3.7 MMOL/L (3.5-5.1); SODIUM 145 MMOL/L (135-145); TOTAL CARBON DIOXIDE 26.6 MMOL/L (24-32); eGFR > 90 ML/MIN
[2019-01-01 08:00] VITALS: BP 144/89
[2019-01-01] MEDS: docusate sod 100mg capsule PO SCH ×3 (08:00→20:00)
[2019-01-01] MEDS: lactobacillus rhamnosus 10,000 MMU CELLS/CAPSULE PO SCH ×2 (08:08→19:21)
[2019-01-01] MEDS: heparin, porcine 5000 units/ml vial SQ SCH ×2 (08:09→19:22)
[2019-01-01] MEDS: levoFLOXACIN 500mg tablet PO SCH (11:32)
[2019-01-01 12:00] VITALS: BP 136/86
[2019-01-01] MEDS ORDERED: ESCI10TA PO (14:13)
[2019-01-01] MEDS ORDERED: METF500T PO (14:14)
[2019-01-01] MEDS ORDERED: LEVO125T PO (14:15)
[2019-01-01] MEDS: sennosides/docusate sodium tablet PO SCH ×2 (19:22→20:50)
[2019-01-01 20:00] VITALS: BP 140/86
--- NOTE | 2019-01-01 21:40 | NUR ---
Patient in room [facility] 348. I have received report from SAYDA Schumacher and had the opportunity to ask questions and assume patient care. Addendum: 01/01/19 at 2141 by Tawnya Herring RN Amended: Links added.
[2019-01-02 00:34] VITALS: BP 136/77
[2019-01-02] MEDS: ipratropium/albuterol 3ml nebule NEB SCH ×4 (02:21→20:40)
[2019-01-02 05:00] LABS: BASOPHILS % (AUTO) 0.4 % (0-1); EOSINOPHILS # (AUTO) 0.1 X10'3 (0-0.9); EOSINOPHILS % (AUTO) 1.3 % (0-6); HEMATOCRIT 26.7 % (35.0-45.0); HEMOGLOBIN 9.1 g/dl (12.0-16.0); LYMPHOCYTES # (AUTO) 1.9 X10'3 (1.1-4.8); LYMPHOCYTES % (AUTO) 34.1 % (21-51); MEAN PLATELET VOLUME 6.8 FL (7.4-10.4); MONOCYTES # (AUTO) 0.5 X10'3 (0-0.9); MONOCYTES % (AUTO) 8.3 % (2-12); NEUTROPHILS # (AUTO) 3.2 X10'3 (1.8-7.7); NEUTROPHILS % (AUTO) 55.9 % (42-75); PLATELET COUNT 213 X10'3 (140-440); RED BLOOD COUNT 3.03 X10'6 (4.20-5.60); RED CELL DISTRIBUTION WIDTH 13.4 % (11.5-14.5); WHITE BLOOD COUNT 5.6 X10'3 (4.5-11.0)
[2019-01-02 05:29] LABS: ALANINE AMINOTRANSFERASE 40 U/L (12-78); ALBUMIN 2.3 G/DL (3.4-5.0); ALBUMIN/GLOBULIN RATIO 0.6 (1.1-1.5); ALKALINE PHOSPHATASE 61 IU/L (46-116); ANION GAP 10 (8-16); ASPARTATE AMINO TRANSFERASE 24 U/L (10-37); BILIRUBIN,TOTAL 0.2 MG/DL (0.1-1.0); BLOOD UREA NITROGEN 7 MG/DL (7-18); BUN/CREATININE RATIO 9.6 (6.6-38.0); CALCIUM 8.3 MG/DL (8.5-10.1); CHLORIDE 110 MMOL/L (99-107); CREATININE 0.73 MG/DL (0.40-0.90); GLUCOSE 100 MG/DL (70-104); MAGNESIUM 1.9 MG/DL (1.5-2.4); PHOSPHORUS 3.6 MG/DL (2.3-4.5); POTASSIUM 3.4 MMOL/L (3.5-5.1); SODIUM 146 MMOL/L (135-145); TOTAL CARBON DIOXIDE 26.2 MMOL/L (24-32); TOTAL PROTEIN 6.4 G/DL (6.4-8.2); eGFR 88 ML/MIN
--- NOTE | 2019-01-02 06:18 | NUR ---
Problems reprioritized. Patient report given, questions answered & plan of care reviewed with SAYDA Regalado. Addendum: 01/02/19 at 0619 by Tawnya Herring RN Amended: Links added.
--- NOTE | 2019-01-02 06:18 | NUR ---
Patient in room D[facility] 348. I have received report from SAYDA Bowling and had the opportunity to ask questions and assume patient care.
[2019-01-02 07:00] VITALS: BP 148/91
[2019-01-02] MEDS: lactobacillus rhamnosus 10,000 MMU CELLS/CAPSULE PO SCH ×2 (08:25→20:48)
[2019-01-02] MEDS: docusate sod 100mg capsule PO SCH ×2 (08:25→20:48)
[2019-01-02] MEDS: potassium Cl 20 mEq SR tablet PO PRN ×2 (08:25→20:55)
[2019-01-02] MEDS: heparin, porcine 5000 units/ml vial SQ SCH ×2 (08:25→20:57)
[2019-01-02 10:05] LABS: OXYGEN SATURATION (MIXED VEN) 74.5 % (60-80); PO2 MIXED VENOUS (TEMP COR) 37.8 mmHg (35-46)
[2019-01-02 10:16] LABS: ABG BASE EXCESS -4.6 mmol/L (-2.0-3.0); ABG HCO3 21.4 mmol/L (22.0-26.0); ABG PCO2 (T) 44.9 mmHg (35.0-45.0); ABG PH (T) 7.301 (7.350-7.450); ALLEN'S TEST Positive; FCOHb 0.3 % (0.5-1.5); FMetHb 0.2 % (0.3-1.12); FO2Hb 93.5 % (94-100); MINUTE VOLUME 8 L/min; PEEP 5 cm H2O; RESPIRATORY RATE 20 b/min; RESPIRATORY RATE (OBSERVED) 20 b/min; TIDAL VOLUME 350 mL
[2019-01-02 10:20] LABS: OXYGEN SATURATION (MIXED VEN) 57.9 % (60-80); PO2 MIXED VENOUS (TEMP COR) 30.8 mmHg (35-46)
[2019-01-02 10:20] LABS: ABG BASE EXCESS -7.7 mmol/L (-2.0-3.0); ABG HCO3 18.2 mmol/L (22.0-26.0); ABG OXYGEN SATURATION 93.9 % (95-98); ABG PCO2 (T) 37.5 mmHg (35.0-45.0); ABG PH (T) 7.301 (7.350-7.450); ABG PO2 (T) 72.8 mmHg (83-108); ALLEN'S TEST Positive; FCOHb 0.5 % (0.5-1.5); FMetHb 0.1 % (0.3-1.12); FO2Hb 93.3 % (94-100); MINUTE VOLUME 7 L/min; PATIENT TEMPERATURE 36.5; PEEP 5 cm H2O; RESPIRATORY RATE 20 b/min; TIDAL VOLUME 350 mL; TOTAL HEMOGLOBIN 12.3 G/dl (12.0-16.0)
[2019-01-02 10:25] LABS: ABG BASE EXCESS -6.3 mmol/L (-2.0-3.0); ABG HCO3 20.3 mmol/L (22.0-26.0); ABG OXYGEN SATURATION 98.7 % (95-98); ABG PCO2 (T) 44.2 mmHg (35.0-45.0); ABG PH (T) 7.279 (7.350-7.450); ABG PO2 (T) 169.1 mmHg (83-108); ALLEN'S TEST Positive; FCOHb 1.1 % (0.5-1.5); FMetHb 0.1 % (0.3-1.12); FO2Hb 97.5 % (94-100); MINUTE VOLUME 8 L/min; PEEP 5 cm H2O; RESPIRATORY RATE 18 b/min; RESPIRATORY RATE (OBSERVED) 18 b/min; TIDAL VOLUME 400 mL; TOTAL HEMOGLOBIN 12.7 G/dl (12.0-16.0)
[2019-01-02 11:00] VITALS: BP 152/64
[2019-01-02] MEDS: levoFLOXACIN 500mg tablet PO SCH (11:49)
--- NOTE | 2019-01-02 14:27 | NUR ---
Reassessment: Per MD notes shock, OBINNA, and lactic acidosis resolved and pt continues with tx for UTI with E.coli. Pt s/p BSS 01/[address] recs regular food and liquids d/t no s/s aspiration. Patient's diet has been advanced to regular and pt documented with 25-50% PO intake not meeting nutrient needs. Pt seen at bedside endorses a good appetite however reports feeling constipated impairing her ability to eat more. LBM 01/01 however pt reports it was small and states she has had only one good BM since admit. Pt receiving routine bowel care and agrees to prunes, d/w dietary. Pt denies food allergies however reports dislike to tomatoes, onions, and broccoli. Pt provided with alternative write in menu to provide additional food options. Pt with meal preferences for dinner tonight and lunch tomorrow. All preferences d/w dietary. RD contact information provided. Will continue to follow. Recommendations: 1) Continue regular diet 2) Encourage PO intake 3) Routine bowel care 4) Wt per rx Addendum: 01/02/19 at [address] Amended: Links added.
[2019-01-02] MEDS ORDERED: LEVO500T89 PO (14:57)
--- NOTE | 2019-01-02 18:34 | NUR ---
Problems reprioritized. Patient report given, questions answered & plan of care reviewed with SAYDA Shin.
--- NOTE | 2019-01-02 18:40 | NUR ---
Patient in room [facility] 348. I have received report from Winsome ALFREDO and had the opportunity to ask questions and assume patient care.
[2019-01-02 19:00] VITALS: BP 143/90
--- NOTE | 2019-01-02 20:00 | NUR ---
[facility] RN came in to evaluate patient as she is on a 1798 and will need placement. [facility] RN (laureano) informed nurse that when a place accepts her and their tour driver comes to pick her up, that the will need the original copy of the 17, and that we will keep the copy. Addendum: 01/03/19 at 0649 by Aleida Viveros RN The tour driver will need to take the originally paperwork.
[2019-01-02] MEDS: sennosides/docusate sodium tablet PO SCH (20:53)
[2019-01-02] MEDS: acetaminophen 325mg tablet PO PRN (20:53)
[2019-01-03] VITALS: BP 127/92
--- NOTE | 2019-01-03 00:10 | NUR ---
Kayla from [facility] in [place] called to gather info on Patient in order to consider placement. She also requested that we do a TSH lab and a test.- orders entered for these 2 labs.
[2019-01-03] MEDS: ipratropium/albuterol 3ml nebule NEB SCH ×3 (03:00→14:51)
[2019-01-03 05:03] LABS: HCG SERUM QL NEGATIVE
[2019-01-03 05:04] LABS: BASOPHILS % (AUTO) 0.5 % (0-1); EOSINOPHILS # (AUTO) 0.1 X10'3 (0-0.9); EOSINOPHILS % (AUTO) 2.1 % (0-6); HEMATOCRIT 31.7 % (35.0-45.0); HEMOGLOBIN 10.4 g/dl (12.0-16.0); LYMPHOCYTES % (AUTO) 35.8 % (21-51); MEAN CORPUSCULAR HEMOGLOBIN 29.3 PG (27.0-31.0); MEAN CORPUSCULAR HGB CONC 32.9 g/dL (33.0-36.5); MEAN PLATELET VOLUME 6.5 FL (7.4-10.4); MONOCYTES # (AUTO) 0.6 X10'3 (0-0.9); MONOCYTES % (AUTO) 11.1 % (2-12); NEUTROPHILS # (AUTO) 2.9 X10'3 (1.8-7.7); NEUTROPHILS % (AUTO) 50.5 % (42-75); PLATELET COUNT 242 X10'3 (140-440); RED BLOOD COUNT 3.56 X10'6 (4.20-5.60); RED CELL DISTRIBUTION WIDTH 13.9 % (11.5-14.5); WHITE BLOOD COUNT 5.7 X10'3 (4.5-11.0)
[2019-01-03 05:37] LABS: ALANINE AMINOTRANSFERASE 38 U/L (12-78); ALBUMIN 2.5 G/DL (3.4-5.0); ALBUMIN/GLOBULIN RATIO 0.5 (1.1-1.5); ALKALINE PHOSPHATASE 61 IU/L (46-116); ANION GAP 10 (8-16); ASPARTATE AMINO TRANSFERASE 22 U/L (10-37); BILIRUBIN,TOTAL 0.3 MG/DL (0.1-1.0); BLOOD UREA NITROGEN 8 MG/DL (7-18); BUN/CREATININE RATIO 12.3 (6.6-38.0); CALCIUM 8.9 MG/DL (8.5-10.1); CHLORIDE 106 MMOL/L (99-107); CREATININE 0.65 MG/DL (0.40-0.90); GLUCOSE 96 MG/DL (70-104); PHOSPHORUS 3.7 MG/DL (2.3-4.5); POTASSIUM 4.2 MMOL/L (3.5-5.1); SODIUM 140 MMOL/L (135-145); TOTAL CARBON DIOXIDE 23.8 MMOL/L (24-32); TOTAL PROTEIN 7.1 G/DL (6.4-8.2); eGFR > 90 ML/MIN
--- NOTE | 2019-01-03 06:45 | NUR ---
Patient in room [facility] 348. I have received report from SAYDA Shin and had the opportunity to ask questions and assume patient care.
--- NOTE | 2019-01-03 06:49 | NUR ---
Problems reprioritized. Patient report given, questions answered & plan of care reviewed with Winsome RN.
[2019-01-03 07:21] VITALS: BP 132/88
[2019-01-03] MEDS: docusate sod 100mg capsule PO SCH (08:32)
[2019-01-03] MEDS: lactobacillus rhamnosus 10,000 MMU CELLS/CAPSULE PO SCH (08:32)
[2019-01-03] MEDS: heparin, porcine 5000 units/ml vial SQ SCH (08:32)
[2019-01-03] MEDS ORDERED: OLANZapine 5mg rapidly disint. tablet PO ONE ×2 (11:15→11:26)
[2019-01-03] MEDS ORDERED: LORazepam 1 MG tablet PO PRN (11:15)
[2019-01-03] MEDS: levoFLOXACIN 500mg tablet PO SCH (11:45)
--- NOTE | 2019-01-03 13:34 | NUR ---
PRESSURE ULCER EDUCATION: DEFINITION: A pressure ulcer is an area of skin that breaks down when you stay in one position too long. The constant pressure against the skin reduces the blood flow to that area and the affected tissue dies. CAUSES: "Being bedridden or in a wheelchair "Fragile skin "Having a chronic condition, such as diabetes or vascular disease "Inability to move certain parts of your body without assistance "Older age "Incontinence of urine or stool SYMPTOMS: "A reddened area that DOES NOT turn white when pressed on - this can be the beginning of a pressure ulcer "A blister, deep sore or a crater - these can be advanced pressure ulcers FIRST AID: "Relieve the pressure on this area "Keep the area clean and dry "Call your primary doctor if you see any of the above symptoms "DO NOT massage the area "DO NOT use a donut shaped or ring shaped pillow- these actually interfere with the blood flow and cause complications PREVENTION: "Check for pressure ulcers everyday "Change position at least every two hours to relieve pressure "Use items that help relieve pressure- pillows, sheepskin, foam padding, and powders. "Keep skin clean and dry "Eat healthy well balanced meals "Exercise daily IF YOU SEE ANY OF THESE SYMPTOMS WHILE IN THE HOSPITAL - TELL YOUR NURSE IMMEDIATELY. IF YOU SEE ANY OF THESE SYMPTOMS WHILE AT HOME OR HAVE ANY QUESTIONS OR CONCERNS ABOUT PRESSURE ULCERS - CALL YOUR PRIMARY DOCTOR IMMEDIATELY. Addendum: 01/03/19 at 1334 by Karyna Allen RN Amended: Links added.
--- NOTE | 2019-01-03 16:11 | NUR ---
Report given to SAYDA Grimm in behavioral health unit. All questions answered, IV taken out and pt discharged and transferred to [facility] safely.
== END 2019-01-03 15:58 | DRG 720 ==
LOC: ER 10:50 → ED HOLD 13:22 → CICU 2S 14:30 → SUR 3N 12-31 14:15
PROVIDERS: ADMIT Internal Medicine Critical Care Medicine; ATTEND Internal Medicine Critical Care Medicine
PROC: 5A1935Z Respiratory Ventilation, Less than 24 Consecutive Hours (ICD-10-PCS; principal; 2018-12-29)
PROC: 0BH17EZ Insertion of Endotracheal Airway into Trachea, Via Natural or Artificial Opening (ICD-10-PCS; 2018-12-29)
PROC: 02HV33Z Insertion of Infusion Device into Superior Vena Cava, Percutaneous Approach (ICD-10-PCS; 2018-12-29)
DX: A41.9 Sepsis, unspecified organism (principal); R57.9 Shock, unspecified; E87.2 Acidosis; N17.9 Acute kidney failure, unspecified; N30.90 Cystitis, unspecified without hematuria; E11.621 Type 2 diabetes mellitus with foot ulcer; B96.20 Unspecified Escherichia coli [E. coli] as the cause of diseases classified elsewhere; R68.0 Hypothermia, not associated with low environmental temperature; E86.1 Hypovolemia; T50.904A Poisoning by unspecified drugs, medicaments and biological substances, undetermined, initial encounter; F15.90 Other stimulant use, unspecified, uncomplicated; L97.529 Non-pressure chronic ulcer of other part of left foot with unspecified severity; Z60.2 Problems related to living alone; R23.0 Cyanosis; F17.210 Nicotine dependence, cigarettes, uncomplicated; F29 Unspecified psychosis not due to a substance or known physiological condition; Z59.0 Homelessness; Z79.84 Long term (current) use of oral hypoglycemic drugs; Z79.890 Hormone replacement therapy; Z80.8 Family history of malignant neoplasm of other organs or systems; Z86.14 Personal history of Methicillin resistant Staphylococcus aureus infection; Z87.440 Personal history of urinary (tract) infections; Z91.410 Personal history of adult physical and sexual abuse; Z88.0 Allergy status to penicillin; Y92.89 Other specified places as the place of occurrence of the external cause
CPT/HCPCS: 31500; 36415; 36556; 36600; 70450; 71045; 76937; 80053; 80305; 80320; 81001; 82550; 82570; 82803; 82810; 82948; 83036; 83605; 83735; 84100; 84132; 84300; 84443; 84703; 85018; 85025; 85610; 85730; 87040; 87070; 87077; 87081; 87088; 87186; 87207; 92508; 92616; 93005; 94002; 94003; 94640; 94667; 94760; 96365; 97110; 97112; 97116; 97161; 97530; 99291; G0378; J0692; J0696; J1250; J1644; J2060; J2250; J2704; J3010; J3370; J3480; J3490; J7040; Q9967

== ENCOUNTER 2019-01-03 14:38 | Inpatient (IN) | payer MEDICAID ==
[~2019-01-03] VITALS: Ht 165.1 cm; Wt 66.5 kg
[~2019-01-03 14:38] MED LIST changes: -AZIT250T PO; +ESCI10TA PO; -GABA-530 PO; +LEVO125T PO; +LEVO500T89 PO; +METF500T PO; -NO HOME MEDS
[2019-01-03] MEDS ORDERED: loperamide 2mg capsule PO PRN (15:30)
[2019-01-03] MEDS ORDERED: magnesium hydroxide 30ml (MOM) UD suspension PO PRN (15:30)
[2019-01-03] MEDS ORDERED: mag hydrox/Alum hydrox/simeth 30ml oral suspension PO PRN (15:30)
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
[2019-01-03] MEDS: LORazepam 1 MG tablet PO PRN (18:15)
[2019-01-03] MEDS: acetaminophen 325mg tablet PO PRN (18:16)
[2019-01-03 20:25] VITALS: BP 128/87
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
[2019-01-04] MEDS: levoTHYROXINE 125mcg tablet PO SCH (07:27)
[2019-01-04] MEDS: metFORMIN 500mg tablet PO SCH ×2 (07:27→17:25)
[2019-01-04] MEDS: ESCITALOPRAM OXALATE 5 MG TABLET PO SCH (07:28)
[2019-01-04 07:44] VITALS: BP 120/70
[2019-01-04 08:37] LABS: CHOL/HDL RATIO 4.5 (0.00-4.99); CHOLESTEROL 153 MG/DL (0-200); HDL CHOLESTEROL 34 MG/DL (35-60); LDL CHOLESTEROL 95 MG/DL (50-100); TRIGLYCERIDES 155 MG/DL (20-135)
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
[2019-01-04] MEDS: acetaminophen 325mg tablet PO PRN (19:48)
[2019-01-04 20:00] VITALS: BP 119/89
[2019-01-04] MEDS ORDERED: risperiDONE 0.5mg tablet PO ONE (21:35)
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
[2019-01-05] MEDS: ESCITALOPRAM OXALATE 5 MG TABLET PO SCH (07:27)
[2019-01-05] MEDS: metFORMIN 500mg tablet PO SCH ×2 (07:27→17:10)
[2019-01-05] MEDS: levoTHYROXINE 125mcg tablet PO SCH (07:27)
[2019-01-05 08:00] VITALS: BP 124/78
--- NOTE | 2019-01-05 08:18 | NUR ---
Met with Ct to complete Psychosocial Assessment. She was quite delusional and a very poor historian. She does not believe she needs to be here. It was difficult to gather useful information. Minerva Sherwood [facility] Lic# [id number] Addendum: 01/05/19 at 0820 by Minerva Sherwood SS Amended: Links added.
[2019-01-05] MEDS: neomy sulf/bacitrac zn/polymixin b oint 14.2 gm tube TP SCH ×2 (08:56→20:00)
--- NOTE | 2019-01-05 11:14 | NUR ---
Spoke to Jaziel Olguin, Psychologist at [facility] (ph# [phone]) who reported he has forwarded Ct's file to Mariela Sewell with Public Guardian and that he believes they should proceed with LPS conservatorship. RITU Newby Lic# [id number]
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
[2019-01-05] MEDS: acetaminophen 325mg tablet PO PRN ×2 (18:58→23:00)
[2019-01-05 20:00] VITALS: BP 135/82
[2019-01-05] MEDS: risperiDONE 0.5mg tablet PO SCH (21:28)
[2019-01-05] MEDS: hydrOXYzine 25 MG tablet PO PRN (22:36)
[2019-01-05] MEDS: traZODone 50mg tablet PO PRN (23:33)
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
[2019-01-06 07:38] VITALS: BP 119/68
[2019-01-06] MEDS: ESCITALOPRAM OXALATE 5 MG TABLET PO SCH (07:47)
[2019-01-06] MEDS: levoTHYROXINE 125mcg tablet PO SCH (07:47)
[2019-01-06] MEDS: metFORMIN 500mg tablet PO SCH ×2 (07:48→17:10)
[2019-01-06] MEDS: neomy sulf/bacitrac zn/polymixin b oint 14.2 gm tube TP SCH ×2 (08:00→20:00)
[2019-01-06] MEDS ORDERED: diphenhydrAMINE 50 mg/ml inj ONE (10:27)
[2019-01-06] MEDS ORDERED: LORazepam 2 mg/ml vial ONE (10:27)
[2019-01-06] MEDS ORDERED: haloperidol lactate 5mg/ml inj ONE (10:27)
[2019-01-06] MEDS ORDERED: haloperidol 5mg tablet PO ONE (10:35)
[2019-01-06] MEDS ORDERED: diphenhydrAMINE 25mg capsule PO ONE (10:35)
[2019-01-06] MEDS ORDERED: LORazepam 1 MG tablet PO ONE (10:35)
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
[2019-01-06 19:00] VITALS: BP 126/77
[2019-01-06] MEDS: risperiDONE 0.5mg tablet PO SCH (20:49)
[2019-01-06] MEDS: traZODone 50mg tablet PO PRN (20:50)
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
[2019-01-07] MEDS: levoTHYROXINE 125mcg tablet PO SCH (07:49)
[2019-01-07] MEDS: ESCITALOPRAM OXALATE 5 MG TABLET PO SCH (07:49)
[2019-01-07] MEDS: metFORMIN 500mg tablet PO SCH ×2 (07:51→17:35)
[2019-01-07 07:57] VITALS: BP 107/58
[2019-01-07] MEDS: neomy sulf/bacitrac zn/polymixin b oint 14.2 gm tube TP SCH ×2 (08:25→20:15)
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
[2019-01-07 19:57] VITALS: BP 131/78
[2019-01-07] MEDS: traZODone 50mg tablet PO PRN (20:15)
[2019-01-07] MEDS: risperiDONE 2mg tablet PO SCH (20:15)
[2019-01-07] MEDS: hydrOXYzine 25 MG tablet PO PRN (21:17)
[2019-01-07] MEDS: LORazepam 1 MG tablet PO PRN (22:28)
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
[2019-01-08] MEDS: ESCITALOPRAM OXALATE 5 MG TABLET PO SCH (07:45)
[2019-01-08] MEDS: neomy sulf/bacitrac zn/polymixin b oint 14.2 gm tube TP SCH ×2 (07:45→20:48)
[2019-01-08] MEDS: metFORMIN 500mg tablet PO SCH ×2 (07:45→16:58)
[2019-01-08] MEDS: levoTHYROXINE 125mcg tablet PO SCH (07:45)
[2019-01-08 08:00] VITALS: BP 125/78
--- NOTE | 2019-01-08 14:31 | NUR ---
Initial: Pt admit w/ psychosis PO 75-100% meals meeting needs. LBM 01/06. TG 155 on admit may benefit from anti-hyperlipidemic per MD approval. Will continue to monitor. Rec: 1. advance diet per MD to heart healthy 2. anti-hyperlipidemic per MD approval w/ TG 155 on admit 3. wt per rx Addendum: 01/08/19 at [address] Amended: Links added.
[2019-01-08 19:55] VITALS: BP_SYST 126; BP_DIAS 82; BP_DIAS 87
[2019-01-08] MEDS: risperiDONE 2mg tablet PO SCH (20:16)
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
[2019-01-08] MEDS: traZODone 50mg tablet PO PRN (23:14)
[2019-01-09 07:00] VITALS: BP 103/75
[2019-01-09] MEDS: neomy sulf/bacitrac zn/polymixin b oint 14.2 gm tube TP SCH ×2 (07:51→20:38)
[2019-01-09] MEDS: levoTHYROXINE 125mcg tablet PO SCH (07:51)
[2019-01-09] MEDS: ESCITALOPRAM OXALATE 5 MG TABLET PO SCH (07:51)
[2019-01-09] MEDS: metFORMIN 500mg tablet PO SCH ×2 (07:51→17:41)
[2019-01-09] MEDS ORDERED: RISP2TAB3 PO (11:27)
[2019-01-09] MEDS ORDERED: LEVO125T PO (11:27)
[2019-01-09] MEDS ORDERED: METF500T PO (11:27)
[2019-01-09] MEDS ORDERED: TRAZ-251 PO (11:27)
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
[2019-01-09 19:31] VITALS: BP 130/87
[2019-01-09] MEDS: risperiDONE 2mg tablet PO SCH (20:33)
[2019-01-09] MEDS: LORazepam 1 MG tablet PO PRN (22:05)
[2019-01-09] MEDS: traZODone 50mg tablet PO PRN (22:06)
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
[2019-01-10 07:00] VITALS: BP 118/71
[2019-01-10] MEDS: metFORMIN 500mg tablet PO SCH ×2 (07:33→18:01)
[2019-01-10] MEDS: ESCITALOPRAM OXALATE 5 MG TABLET PO SCH (07:33)
[2019-01-10] MEDS: neomy sulf/bacitrac zn/polymixin b oint 14.2 gm tube TP SCH ×2 (07:33→20:00)
[2019-01-10] MEDS: levoTHYROXINE 125mcg tablet PO SCH (07:33)
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
[2019-01-10 20:10] VITALS: BP 123/89
[2019-01-10] MEDS: hydrOXYzine 25 MG tablet PO PRN (21:06)
[2019-01-10] MEDS: risperiDONE 2mg tablet PO SCH (21:06)
[2019-01-10] MEDS: LORazepam 1 MG tablet PO PRN (22:41)
[2019-01-10] MEDS: traZODone 50mg tablet PO PRN (22:41)
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
[2019-01-11] MEDS: levoTHYROXINE 125mcg tablet PO SCH (07:46)
[2019-01-11] MEDS: ESCITALOPRAM OXALATE 5 MG TABLET PO SCH (07:46)
[2019-01-11] MEDS: metFORMIN 500mg tablet PO SCH ×2 (07:46→16:02)
[2019-01-11] MEDS: neomy sulf/bacitrac zn/polymixin b oint 14.2 gm tube TP SCH ×2 (07:47→20:33)
[2019-01-11 07:51] VITALS: BP 121/76
[2019-01-11] MEDS: acetaminophen 325mg tablet PO PRN ×2 (15:56→20:32)
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
[2019-01-11 20:00] VITALS: BP 121/84
[2019-01-11] MEDS: risperiDONE 2mg tablet PO SCH (20:33)
[2019-01-11] MEDS: hydrOXYzine 25 MG tablet PO PRN (20:33)
[2019-01-11] MEDS: LORazepam 1 MG tablet PO PRN (21:34)
[2019-01-11] MEDS: traZODone 50mg tablet PO PRN (21:34)
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
[2019-01-12 07:50] VITALS: BP 119/75
[2019-01-12] MEDS: metFORMIN 500mg tablet PO SCH ×2 (08:14→16:49)
[2019-01-12] MEDS: ESCITALOPRAM OXALATE 5 MG TABLET PO SCH (08:14)
[2019-01-12] MEDS: levoTHYROXINE 125mcg tablet PO SCH (08:14)
[2019-01-12 08:16] LABS: BASOPHILS % (AUTO) 0.4 % (0-1); EOSINOPHILS # (AUTO) 0.2 X10'3 (0-0.9); EOSINOPHILS % (AUTO) 1.8 % (0-6); HEMATOCRIT 37.4 % (35.0-45.0); HEMOGLOBIN 12.3 g/dl (12.0-16.0); LYMPHOCYTES # (AUTO) 3.1 X10'3 (1.1-4.8); LYMPHOCYTES % (AUTO) 35.8 % (21-51); MEAN CORPUSCULAR HGB CONC 32.8 g/dL (33.0-36.5); MEAN CORPUSCULAR VOLUME 88.2 FL (78-98); MEAN PLATELET VOLUME 6.4 FL (7.4-10.4); MONOCYTES # (AUTO) 0.5 X10'3 (0-0.9); MONOCYTES % (AUTO) 5.4 % (2-12); NEUTROPHILS # (AUTO) 4.8 X10'3 (1.8-7.7); NEUTROPHILS % (AUTO) 56.6 % (42-75); PLATELET COUNT 515 X10'3 (140-440); RED BLOOD COUNT 4.23 X10'6 (4.20-5.60); RED CELL DISTRIBUTION WIDTH 14.2 % (11.5-14.5); WHITE BLOOD COUNT 8.5 X10'3 (4.5-11.0)
[2019-01-12] MEDS: neomy sulf/bacitrac zn/polymixin b oint 14.2 gm tube TP SCH ×2 (08:16→20:00)
--- NOTE | 2019-01-12 12:29 | NUR ---
PRESSURE ULCER EDUCATION: DEFINITION: A pressure ulcer is an area of skin that breaks down when you stay in one position too long. The constant pressure against the skin reduces the blood flow to that area and the affected tissue dies. CAUSES: "Being bedridden or in a wheelchair "Fragile skin "Having a chronic condition, such as diabetes or vascular disease "Inability to move certain parts of your body without assistance "Older age "Incontinence of urine or stool SYMPTOMS: "A reddened area that DOES NOT turn white when pressed on - this can be the beginning of a pressure ulcer "A blister, deep sore or a crater - these can be advanced pressure ulcers FIRST AID: "Relieve the pressure on this area "Keep the area clean and dry "Call your primary doctor if you see any of the above symptoms "DO NOT massage the area "DO NOT use a donut shaped or ring shaped pillow- these actually interfere with the blood flow and cause complications PREVENTION: "Check for pressure ulcers everyday "Change position at least every two hours to relieve pressure "Use items that help relieve pressure- pillows, sheepskin, foam padding, and powders. "Keep skin clean and dry "Eat healthy well balanced meals "Exercise daily IF YOU SEE ANY OF THESE SYMPTOMS WHILE IN THE HOSPITAL - TELL YOUR NURSE IMMEDIATELY. IF YOU SEE ANY OF THESE SYMPTOMS WHILE AT HOME OR HAVE ANY QUESTIONS OR CONCERNS ABOUT PRESSURE ULCERS - CALL YOUR PRIMARY DOCTOR IMMEDIATELY. Addendum: 01/12/19 at 1230 by Karyna Allen RN Amended: Links added.
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
[2019-01-12] MEDS: NICOTINE POLACRILEX 2 MG LOZENGE BC PRN (18:38)
[2019-01-12 20:01] VITALS: BP 127/78
[2019-01-12] MEDS: traZODone 50mg tablet PO PRN (21:04)
[2019-01-12] MEDS: risperiDONE 2mg tablet PO SCH (21:04)
[2019-01-12] MEDS: hydrOXYzine 25 MG tablet PO PRN (22:16)
[2019-01-12] MEDS: LORazepam 1 MG tablet PO PRN (23:11)
[2019-01-12] MEDS: acetaminophen 325mg tablet PO PRN (23:15)
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
[2019-01-13] MEDS ORDERED: temazepam 15mg capsule PO ONE (00:45)
[2019-01-13 07:36] VITALS: BP 117/65
[2019-01-13] MEDS: metFORMIN 500mg tablet PO SCH ×2 (07:45→17:12)
[2019-01-13] MEDS: levoTHYROXINE 125mcg tablet PO SCH (07:45)
[2019-01-13] MEDS: ESCITALOPRAM OXALATE 5 MG TABLET PO SCH (07:46)
[2019-01-13] MEDS: acetaminophen 325mg tablet PO PRN (13:49)
[2019-01-13] MEDS: hydrOXYzine 25 MG tablet PO PRN (14:39)
[2019-01-13] MEDS: NICOTINE POLACRILEX 2 MG LOZENGE BC PRN ×2 (14:39→17:12)
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
[2019-01-13 19:00] VITALS: BP 123/76
[2019-01-13] MEDS: traZODone 50mg tablet PO PRN (20:48)
[2019-01-13] MEDS: risperiDONE 2mg tablet PO SCH (20:48)
[2019-01-13] MEDS: LORazepam 1 MG tablet PO PRN (21:30)
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
[2019-01-14] MEDS: levoTHYROXINE 125mcg tablet PO SCH (07:23)
[2019-01-14] MEDS: ESCITALOPRAM OXALATE 5 MG TABLET PO SCH (07:23)
[2019-01-14] MEDS: metFORMIN 500mg tablet PO SCH ×2 (07:23→17:46)
[2019-01-14] MEDS: NICOTINE POLACRILEX 2 MG LOZENGE BC PRN ×3 (07:23→20:58)
[2019-01-14 07:57] VITALS: BP 105/66
--- NOTE | 2019-01-14 10:10 | NUR ---
reassessment: Pt PO 75-100% meals meeting needs. LBM 01/11. No nutrition concerns at this time. Will continue to monitor. Rec: 1. advance diet per MD to heart healthy 2. anti-hyperlipidemic per MD approval w/ TG 155 on admit 3. wt per rx Addendum: 01/14/19 at [address] Amended: Links added.
[2019-01-14] MEDS: acetaminophen 325mg tablet PO PRN ×2 (16:01→22:09)
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
[2019-01-14] MEDS: LORazepam 1 MG tablet PO PRN (19:33)
[2019-01-14 19:34] VITALS: BP 118/85
[2019-01-14] MEDS: risperiDONE 2mg tablet PO SCH (20:58)
[2019-01-14] MEDS: traZODone 50mg tablet PO PRN (22:10)
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
[2019-01-15] MEDS: metFORMIN 500mg tablet PO SCH ×2 (07:15→16:55)
[2019-01-15] MEDS: levoTHYROXINE 125mcg tablet PO SCH (07:15)
[2019-01-15] MEDS: ESCITALOPRAM OXALATE 5 MG TABLET PO SCH (07:16)
[2019-01-15] MEDS: NICOTINE POLACRILEX 2 MG LOZENGE BC PRN ×5 (07:32→19:05)
[2019-01-15 07:39] VITALS: BP 114/88
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
--- NOTE | 2019-01-15 16:54 | NUR ---
WOUND CARE CONSULT Spoke with Hanna in Outpatient wound care re pt's left knee to request a consult with Dr. Mcmillan per Dr. Hernandez's request. Outpatient WC is familiar with this patient, and will have Dr. Mcmillan consult tomorrow.
[2019-01-15 19:32] VITALS: BP 110/80
[2019-01-15] MEDS: traZODone 50mg tablet PO PRN (20:42)
[2019-01-15] MEDS: risperiDONE 2mg tablet PO SCH (20:42)
[2019-01-15] MEDS: acetaminophen 325mg tablet PO PRN (20:42)
[2019-01-15] MEDS: hydrOXYzine 25 MG tablet PO PRN (21:13)
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
[2019-01-16 08:00] VITALS: BP 103/63
[2019-01-16] MEDS: levoTHYROXINE 125mcg tablet PO SCH (08:00)
[2019-01-16] MEDS: metFORMIN 500mg tablet PO SCH ×2 (08:00→16:25)
[2019-01-16] MEDS: ESCITALOPRAM OXALATE 5 MG TABLET PO SCH (08:00)
[2019-01-16] MEDS: NICOTINE POLACRILEX 2 MG LOZENGE BC PRN ×3 (09:44→19:36)
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
[2019-01-16 19:33] VITALS: BP 124/80
[2019-01-16] MEDS: risperiDONE 2mg tablet PO SCH (20:06)
[2019-01-16] MEDS: traZODone 50mg tablet PO PRN (20:06)
[2019-01-16] MEDS: acetaminophen 325mg tablet PO PRN (21:24)
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
[2019-01-17] MEDS: ESCITALOPRAM OXALATE 5 MG TABLET PO SCH (07:09)
[2019-01-17] MEDS: levoTHYROXINE 125mcg tablet PO SCH (07:09)
[2019-01-17] MEDS: metFORMIN 500mg tablet PO SCH ×2 (07:09→17:53)
[2019-01-17 07:29] VITALS: BP 116/71
[2019-01-17] MEDS: acetaminophen 325mg tablet PO PRN ×2 (07:46→21:07)
[2019-01-17] MEDS: NICOTINE POLACRILEX 2 MG LOZENGE BC PRN ×2 (10:45→18:11)
--- NOTE | 2019-01-17 12:07 | NUR ---
Wound left knee: Dr. Mcmillan came and looked at wound and he gave order to put honey alginate dressing to be changed q-48 hours and he says he will scrape some off once it loosens up. VM left with wound care and wound consult order put in.
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
[2019-01-17] MEDS: hydrOXYzine 25 MG tablet PO PRN (19:09)
[2019-01-17 19:48] VITALS: BP 129/90
[2019-01-17] MEDS: traZODone 50mg tablet PO PRN (20:15)
[2019-01-17] MEDS: risperiDONE 2mg tablet PO SCH (20:15)
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
[2019-01-18] MEDS: ESCITALOPRAM OXALATE 5 MG TABLET PO SCH (07:08)
[2019-01-18] MEDS: metFORMIN 500mg tablet PO SCH ×2 (07:08→16:55)
[2019-01-18] MEDS: levoTHYROXINE 125mcg tablet PO SCH (07:08)
[2019-01-18 08:00] VITALS: BP 114/66
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
[2019-01-18] MEDS: NICOTINE POLACRILEX 2 MG LOZENGE BC PRN ×2 (17:52→20:30)
[2019-01-18] MEDS: acetaminophen 325mg tablet PO PRN (18:49)
[2019-01-18] MEDS: traZODone 50mg tablet PO PRN (20:30)
[2019-01-18] MEDS: risperiDONE 2mg tablet PO SCH (20:30)
[2019-01-18] MEDS: hydrOXYzine 25 MG tablet PO PRN (21:48)
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
[2019-01-19] MEDS: metFORMIN 500mg tablet PO SCH ×2 (07:00→17:07)
[2019-01-19 07:45] VITALS: BP 116/70
[2019-01-19] MEDS: levoTHYROXINE 125mcg tablet PO SCH (08:00)
[2019-01-19] MEDS: ESCITALOPRAM OXALATE 5 MG TABLET PO SCH (08:00)
[2019-01-19] MEDS: acetaminophen 325mg tablet PO PRN ×2 (08:55→20:14)
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
[2019-01-19] MEDS: NICOTINE POLACRILEX 2 MG LOZENGE BC PRN (17:07)
[2019-01-19] MEDS: traMADol 50MG tablet PO PRN (17:36)
[2019-01-19 19:59] VITALS: BP 124/83
[2019-01-19] MEDS: risperiDONE 2mg tablet PO SCH (20:14)
[2019-01-19] MEDS: traZODone 50mg tablet PO PRN (20:14)
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
[2019-01-20] MEDS: levoTHYROXINE 125mcg tablet PO SCH (07:17)
[2019-01-20] MEDS: traMADol 50MG tablet PO PRN ×2 (07:17→16:50)
[2019-01-20] MEDS: ESCITALOPRAM OXALATE 5 MG TABLET PO SCH (07:18)
[2019-01-20] MEDS: metFORMIN 500mg tablet PO SCH ×2 (07:18→16:49)
[2019-01-20] MEDS: NICOTINE POLACRILEX 2 MG LOZENGE BC PRN ×4 (07:57→17:50)
[2019-01-20 08:00] VITALS: BP 116/65
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
[2019-01-20 19:42] VITALS: BP 121/84
[2019-01-20] MEDS: risperiDONE 2mg tablet PO SCH (20:35)
[2019-01-20] MEDS: traZODone 50mg tablet PO PRN (20:35)
[2019-01-20] MEDS: HYDROcodone/acetaminophen 5mg/325mg tablet PO PRN (20:35)
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
[2019-01-21] MEDS: metFORMIN 500mg tablet PO SCH ×2 (07:26→17:08)
[2019-01-21] MEDS: levoTHYROXINE 125mcg tablet PO SCH (07:26)
[2019-01-21] MEDS: ESCITALOPRAM OXALATE 5 MG TABLET PO SCH (07:27)
[2019-01-21] MEDS: HYDROcodone/acetaminophen 5mg/325mg tablet PO PRN ×3 (07:35→20:42)
[2019-01-21] MEDS: NICOTINE POLACRILEX 2 MG LOZENGE BC PRN ×5 (07:35→17:08)
[2019-01-21 07:43] VITALS: BP 111/75
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
[2019-01-21 20:00] VITALS: BP 121/75
[2019-01-21] MEDS: risperiDONE 2mg tablet PO SCH (20:29)
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
[2019-01-22] MEDS: metFORMIN 500mg tablet PO SCH ×2 (07:21→17:53)
[2019-01-22] MEDS: levoTHYROXINE 125mcg tablet PO SCH (07:21)
[2019-01-22] MEDS: ESCITALOPRAM OXALATE 5 MG TABLET PO SCH (07:21)
[2019-01-22 08:00] VITALS: BP 108/74
[2019-01-22] MEDS: NICOTINE POLACRILEX 2 MG LOZENGE BC PRN ×3 (08:20→19:01)
--- NOTE | 2019-01-22 14:41 | NUR ---
reassessment: Pt PO 75-100% meals meeting needs. LBM 01/21. TG 155; MARLIN d/w RN regarding anti-hyperlipidemic per MD approval. No nutrition concerns at this time. Will continue to monitor. Rec: 1. advance diet per MD to heart healthy/carb controlled 2. anti-hyperlipidemic per MD approval w/ TG 155 on admit 3. wt per rx Addendum: 01/22/19 at [address] Amended: Links added.
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
[2019-01-22 20:00] VITALS: BP 124/76
[2019-01-22] MEDS: risperiDONE 2mg tablet PO SCH (20:31)
[2019-01-22] MEDS: HYDROcodone/acetaminophen 5mg/325mg tablet PO PRN (20:31)
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
[2019-01-23] MEDS: acetaminophen 325mg tablet PO PRN ×2 (06:01→21:35)
[2019-01-23] MEDS: ESCITALOPRAM OXALATE 5 MG TABLET PO SCH (07:46)
[2019-01-23] MEDS: levoTHYROXINE 125mcg tablet PO SCH (07:46)
[2019-01-23] MEDS: metFORMIN 500mg tablet PO SCH ×2 (07:46→17:46)
[2019-01-23 08:00] VITALS: BP 122/81
[2019-01-23] MEDS: NICOTINE POLACRILEX 2 MG LOZENGE BC PRN ×3 (11:01→18:10)
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
[2019-01-23 20:00] VITALS: BP 126/87
[2019-01-23] MEDS: risperiDONE 2mg tablet PO SCH (20:14)
[2019-01-23] MEDS: hydrOXYzine 25 MG tablet PO PRN (21:00)
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
[2019-01-24 08:09] VITALS: BP 139/97
[2019-01-24] MEDS: metFORMIN 500mg tablet PO SCH ×2 (08:25→16:44)
[2019-01-24] MEDS: levoTHYROXINE 125mcg tablet PO SCH (08:25)
[2019-01-24] MEDS: ESCITALOPRAM OXALATE 5 MG TABLET PO SCH (08:26)
[2019-01-24] MEDS: acetaminophen 325mg tablet PO PRN ×2 (09:20→16:45)
[2019-01-24] MEDS: NICOTINE POLACRILEX 2 MG LOZENGE BC PRN ×4 (13:14→21:53)
[2019-01-24] MEDS: HYDROcodone/acetaminophen 5mg/325mg tablet PO PRN ×2 (13:37→20:48)
--- NOTE | 2019-01-24 15:34 | NUR ---
Knee Wound - Dr. Mcmillan Contacted Dr. Mcmillan wound clinic ([id number]) at [phone] and they stated they had asked him yesterday to come up and see pt., but had not seen pt. They now state he is gone for the day and is not in tomorrow. VM left on Dr. Mcmillan cell phone ([phone]) Dr. Aquino notified and he wanted Dr. Mcmillan's wound care clinic notified and for the pt to go down on Tuesday. Wound care clinic notified and Alyssa ([id number]) stated not to come down Tuesday, but that they would call when Dr. Mcmillan arrives Tuesday morning.
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
[2019-01-24 20:48] VITALS: BP 126/84
[2019-01-24] MEDS: risperiDONE 2mg tablet PO SCH (21:04)
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
[2019-01-24] MEDS: hydrOXYzine 25 MG tablet PO PRN (21:53)
[2019-01-25 07:16] VITALS: BP 118/76
[2019-01-25] MEDS: metFORMIN 500mg tablet PO SCH ×2 (07:41→16:29)
[2019-01-25] MEDS: ESCITALOPRAM OXALATE 5 MG TABLET PO SCH (07:41)
[2019-01-25] MEDS: levoTHYROXINE 125mcg tablet PO SCH (07:41)
[2019-01-25] MEDS: HYDROcodone/acetaminophen 5mg/325mg tablet PO PRN ×3 (10:14→21:37)
[2019-01-25] MEDS: NICOTINE POLACRILEX 2 MG LOZENGE BC PRN ×2 (10:21→21:42)
[2019-01-25] MEDS ORDERED: LIDOcaine 1% 30ml preserv. free vial IJ STA (11:33)
[2019-01-25] MEDS ORDERED: HYDROcodone/acetaminophen 5mg/325mg tablet PO PRN (15:20)
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
[2019-01-25 20:00] VITALS: BP 139/84
[2019-01-25] MEDS: risperiDONE 0.5mg tablet PO SCH (20:28)
[2019-01-25] MEDS: risperiDONE 2mg tablet PO SCH (20:28)
[2019-01-25] MEDS ORDERED: sennosides/docusate sodium tablet PO SCH (21:00)
[2019-01-25] MEDS ORDERED: docusate sod 250mg capsule PO SCH (21:00)
[2019-01-25] MEDS: hydrOXYzine 25 MG tablet PO PRN (21:37)
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
[2019-01-26] MEDS: HYDROcodone/acetaminophen 5mg/325mg tablet PO PRN ×4 (01:55→20:24)
[2019-01-26] MEDS: levoTHYROXINE 125mcg tablet PO SCH (07:05)
[2019-01-26] MEDS: ESCITALOPRAM OXALATE 5 MG TABLET PO SCH (07:05)
[2019-01-26] MEDS: metFORMIN 500mg tablet PO SCH ×2 (07:05→16:41)
[2019-01-26] MEDS: NICOTINE POLACRILEX 2 MG LOZENGE BC PRN (07:19)
[2019-01-26 08:00] VITALS: BP 116/71
[2019-01-26] MEDS: acetaminophen 325mg tablet PO PRN (12:04)
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
[2019-01-26 19:00] VITALS: BP 105/69
[2019-01-26] MEDS: docusate sod 100mg capsule PO SCH ×2 (20:23→21:00)
[2019-01-26] MEDS: risperiDONE 2mg tablet PO SCH (20:23)
[2019-01-26] MEDS: traZODone 50mg tablet PO PRN (20:24)
[2019-01-26] MEDS: risperiDONE 0.5mg tablet PO SCH (20:29)
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
--- NOTE | 2019-01-27 06:25 | NUR ---
Nursing Note: Reassessed Wound Vac per scheduled q 2hr protocol, Tegaderm previously applied in place and suction adequately maintained, a small amount of serosanguineous fluid noted in tubing at this time. Pt. appears to be resting comfortably, will continue to monitor.
[2019-01-27] MEDS: metFORMIN 500mg tablet PO SCH ×2 (07:19→16:55)
[2019-01-27] MEDS: levoTHYROXINE 125mcg tablet PO SCH (07:19)
[2019-01-27] MEDS: ESCITALOPRAM OXALATE 5 MG TABLET PO SCH (07:20)
[2019-01-27] MEDS: NICOTINE POLACRILEX 2 MG LOZENGE BC PRN ×6 (07:51→20:29)
[2019-01-27 08:00] VITALS: BP 109/69
[2019-01-27] MEDS: HYDROcodone/acetaminophen 5mg/325mg tablet PO PRN ×3 (08:46→20:29)
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
[2019-01-27 20:00] VITALS: BP 127/83
[2019-01-27] MEDS: risperiDONE 0.5mg tablet PO SCH (20:28)
[2019-01-27] MEDS: risperiDONE 2mg tablet PO SCH (20:28)
[2019-01-27] MEDS: docusate sod 100mg capsule PO SCH (20:29)
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
[2019-01-28] MEDS: levoTHYROXINE 125mcg tablet PO SCH (07:29)
[2019-01-28] MEDS: metFORMIN 500mg tablet PO SCH ×2 (07:29→17:36)
[2019-01-28] MEDS: ESCITALOPRAM OXALATE 5 MG TABLET PO SCH (07:29)
[2019-01-28 07:53] VITALS: BP 107/82
[2019-01-28] MEDS: HYDROcodone/acetaminophen 5mg/325mg tablet PO PRN ×3 (08:18→20:46)
[2019-01-28] MEDS: NICOTINE POLACRILEX 2 MG LOZENGE BC PRN ×2 (08:18→20:50)
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
[2019-01-28 19:00] VITALS: BP 130/81
[2019-01-28] MEDS: risperiDONE 2mg tablet PO SCH (20:21)
[2019-01-28] MEDS: docusate sod 100mg capsule PO SCH (20:22)
[2019-01-28] MEDS: risperiDONE 0.5mg tablet PO SCH (20:22)
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
[2019-01-29] MEDS: ESCITALOPRAM OXALATE 5 MG TABLET PO SCH (07:37)
[2019-01-29] MEDS: levoTHYROXINE 125mcg tablet PO SCH (07:38)
[2019-01-29] MEDS: metFORMIN 500mg tablet PO SCH ×2 (07:38→16:49)
[2019-01-29] MEDS: NICOTINE POLACRILEX 2 MG LOZENGE BC PRN ×3 (08:21→20:21)
[2019-01-29] MEDS: HYDROcodone/acetaminophen 5mg/325mg tablet PO PRN ×4 (08:22→21:04)
[2019-01-29 08:54] VITALS: BP 109/74
--- NOTE | 2019-01-29 09:32 | NUR ---
reassessment: Pt PO fluctuating initially mostly 100% then 50-75% 3 days now back up to 75-100% likely meeting needs. LBM 01/28. Pending anti-hyperlipidemic per MD approval; unable to reach RN today when called floor. Will continue to monitor. Rec: 1. advance diet per MD to heart healthy/carb controlled 2. anti-hyperlipidemic per MD approval w/ TG 155 on admit 3. wt per rx Addendum: 01/29/19 at [address] Amended: Links added. Addendum: 01/29/19 at [address] reassessment: Pt PO fluctuating initially mostly 100% then 50-75% 3 days now back up to 75-100% likely meeting healing needs. L knee PU w/ wound vac noted. LBM 01/28. Pending anti-hyperlipidemic per MD approval; unable to reach RN today when called floor. Will continue to monitor. Rec: 1. advance diet per MD to heart healthy/carb controlled 2. anti-hyperlipidemic per MD approval w/ TG 155 on admit 3. wt per rx
--- NOTE | 2019-01-29 09:49 | NUR ---
WOUND INFECTION EDUCATION PROVIDED BY WOUND CARE 1. Patient instructed to call their primary doctor, or go the ED immediately if any of the following symptoms occur: * Increased pain in wound * Increase in drainage from the wound * Redness in the skin surrounding the wound * Warmth in the skin surrounding the wound * Bleeding from the wound * Temperature of 101 or greater 2. If any of these occur while in the hospital tell a nurse immediately. Addendum: 01/29/19 at 0949 by Karyna Allen RN Amended: Links added.
[2019-01-29] MEDS: hydrOXYzine 25 MG tablet PO PRN (12:18)
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
[2019-01-29 19:56] VITALS: BP 114/79
[2019-01-29] MEDS: risperiDONE 0.5mg tablet PO SCH (20:19)
[2019-01-29] MEDS: risperiDONE 2mg tablet PO SCH (20:19)
[2019-01-29] MEDS: docusate sod 100mg capsule PO SCH (20:20)
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
[2019-01-30] MEDS: levoTHYROXINE 125mcg tablet PO SCH (07:57)
[2019-01-30] MEDS: ESCITALOPRAM OXALATE 5 MG TABLET PO SCH (07:57)
[2019-01-30] MEDS: metFORMIN 500mg tablet PO SCH ×2 (07:57→17:17)
[2019-01-30 08:00] VITALS: BP 115/71
[2019-01-30] MEDS: HYDROcodone/acetaminophen 5mg/325mg tablet PO PRN ×2 (08:18→15:52)
[2019-01-30] MEDS: NICOTINE POLACRILEX 2 MG LOZENGE BC PRN ×4 (08:30→17:26)
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
[2019-01-30 20:00] VITALS: BP 119/73
[2019-01-30] MEDS: risperiDONE 2mg tablet PO SCH (20:58)
[2019-01-30] MEDS: risperiDONE 0.5mg tablet PO SCH (20:58)
[2019-01-30] MEDS: sennosides/docusate sodium tablet PO PRN (20:58)
[2019-01-30] MEDS: docusate sod 100mg capsule PO SCH (21:03)
[2019-01-30] MEDS: LORazepam 1 MG tablet PO PRN (22:00)
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
[2019-01-31] MEDS: levoTHYROXINE 125mcg tablet PO SCH (07:58)
[2019-01-31] MEDS: metFORMIN 500mg tablet PO SCH ×2 (07:58→17:19)
[2019-01-31] MEDS: ESCITALOPRAM OXALATE 5 MG TABLET PO SCH (07:58)
[2019-01-31 08:01] VITALS: BP 131/76
[2019-01-31] MEDS: NICOTINE POLACRILEX 2 MG LOZENGE BC PRN ×5 (08:22→21:13)
[2019-01-31] MEDS ORDERED: LIDOcaine 1% 30ml preserv. free vial IJ STA (10:15)
[2019-01-31] MEDS: HYDROcodone/acetaminophen 5mg/325mg tablet PO PRN ×2 (10:42→21:13)
[2019-01-31] MEDS: LORazepam 1 MG tablet PO PRN (13:21)
--- NOTE | 2019-01-31 15:09 | NUR ---
Line of Sight discontinued: Pt denies suicidal thoughts and has bright affect. Discussion in treatment team to discontinue LOS. Dr. Hernandez agreed to discontinue the LOS. LOS discontinued at 1510.
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
[2019-01-31] MEDS: risperiDONE 0.5mg tablet PO SCH (20:18)
[2019-01-31] MEDS: risperiDONE 2mg tablet PO SCH (20:18)
[2019-01-31] MEDS: sennosides/docusate sodium tablet PO PRN (20:18)
[2019-01-31] MEDS: docusate sod 100mg capsule PO SCH (20:18)
[2019-01-31] MEDS: hydrOXYzine 25 MG tablet PO PRN (20:28)
[2019-01-31] MEDS: traZODone 50mg tablet PO PRN (20:28)
[2019-01-31 20:43] VITALS: BP 117/81
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
[2019-02-01 07:42] VITALS: BP 111/82
[2019-02-01] MEDS: ESCITALOPRAM OXALATE 5 MG TABLET PO SCH (08:12)
[2019-02-01] MEDS: levoTHYROXINE 125mcg tablet PO SCH (08:12)
[2019-02-01] MEDS: metFORMIN 500mg tablet PO SCH ×2 (08:13→17:56)
[2019-02-01] MEDS: NICOTINE POLACRILEX 2 MG LOZENGE BC PRN ×2 (08:42→14:10)
[2019-02-01 10:45] LABS: BASOPHILS % (AUTO) 0.3 % (0-1); EOSINOPHILS # (AUTO) 0.2 X10'3 (0-0.9); EOSINOPHILS % (AUTO) 2.4 % (0-6); HEMATOCRIT 34.1 % (35.0-45.0); HEMOGLOBIN 11.2 g/dl (12.0-16.0); LYMPHOCYTES # (AUTO) 1.8 X10'3 (1.1-4.8); MEAN CORPUSCULAR VOLUME 87.8 FL (78-98); MEAN PLATELET VOLUME 6.4 FL (7.4-10.4); MONOCYTES # (AUTO) 0.5 X10'3 (0-0.9); MONOCYTES % (AUTO) 6.8 % (2-12); NEUTROPHILS # (AUTO) 4.6 X10'3 (1.8-7.7); NEUTROPHILS % (AUTO) 65.5 % (42-75); PLATELET COUNT 229 X10'3 (140-440); RED BLOOD COUNT 3.88 X10'6 (4.20-5.60); RED CELL DISTRIBUTION WIDTH 14.1 % (11.5-14.5); WHITE BLOOD COUNT 7.1 X10'3 (4.5-11.0)
[2019-02-01 11:01] LABS: ALANINE AMINOTRANSFERASE 12 U/L (12-78); ALBUMIN/GLOBULIN RATIO 0.7 (1.1-1.5); ALKALINE PHOSPHATASE 49 IU/L (46-116); ANION GAP 6 (8-16); ASPARTATE AMINO TRANSFERASE 9 U/L (10-37); BILIRUBIN,TOTAL 0.2 MG/DL (0.1-1.0); BLOOD UREA NITROGEN 14 MG/DL (7-18); BUN/CREATININE RATIO 17.5 (6.6-38.0); CALCIUM 9.1 MG/DL (8.5-10.1); CHLORIDE 104 MMOL/L (99-107); GLUCOSE 99 MG/DL (70-104); SODIUM 139 MMOL/L (135-145); TOTAL CARBON DIOXIDE 28.7 MMOL/L (24-32); TOTAL PROTEIN 7.5 G/DL (6.4-8.2); eGFR 79 ML/MIN
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
[2019-02-01] MEDS: HYDROcodone/acetaminophen 5mg/325mg tablet PO PRN ×2 (15:59→20:54)
[2019-02-01 20:44] VITALS: BP 107/71
[2019-02-01] MEDS: traZODone 50mg tablet PO PRN (20:47)
[2019-02-01] MEDS: docusate sod 100mg capsule PO SCH (20:47)
[2019-02-01] MEDS: risperiDONE 0.5mg tablet PO SCH (20:47)
[2019-02-01] MEDS: risperiDONE 2mg tablet PO SCH (20:47)
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
[2019-02-02] MEDS ORDERED: LIDOcaine 4% (40 mg/ml) topical solution 50ml TP PRN (07:25)
[2019-02-02] MEDS: metFORMIN 500mg tablet PO SCH ×2 (07:29→17:11)
[2019-02-02] MEDS: levoTHYROXINE 125mcg tablet PO SCH (07:29)
[2019-02-02] MEDS: NICOTINE POLACRILEX 2 MG LOZENGE BC PRN ×4 (07:51→19:07)
[2019-02-02 07:55] VITALS: BP 112/61
[2019-02-02] MEDS: ESCITALOPRAM OXALATE 5 MG TABLET PO SCH (08:02)
[2019-02-02] MEDS: HYDROcodone/acetaminophen 5mg/325mg tablet PO PRN (10:34)
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
[2019-02-02 20:00] VITALS: BP 125/88
[2019-02-02] MEDS: risperiDONE 0.5mg tablet PO SCH (20:34)
[2019-02-02] MEDS: traZODone 50mg tablet PO PRN (20:34)
[2019-02-02] MEDS: docusate sod 100mg capsule PO SCH (20:34)
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
[2019-02-03] MEDS: ESCITALOPRAM OXALATE 5 MG TABLET PO SCH (07:43)
[2019-02-03] MEDS: metFORMIN 500mg tablet PO SCH ×2 (07:43→17:17)
[2019-02-03] MEDS: levoTHYROXINE 125mcg tablet PO SCH (07:43)
[2019-02-03 08:00] VITALS: BP 108/67
[2019-02-03] MEDS: NICOTINE POLACRILEX 2 MG LOZENGE BC PRN ×2 (14:31→18:07)
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
[2019-02-03] MEDS: HYDROcodone/acetaminophen 5mg/325mg tablet PO PRN (18:52)
[2019-02-03] MEDS: hydrOXYzine 25 MG tablet PO PRN (18:56)
[2019-02-03 20:00] VITALS: BP 115/84
[2019-02-03] MEDS: docusate sod 100mg capsule PO SCH (20:34)
[2019-02-03] MEDS: risperiDONE 0.5mg tablet PO SCH (20:34)
[2019-02-03] MEDS: LORazepam 1 MG tablet PO PRN (20:34)
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
[2019-02-04 07:17] VITALS: BP 134/81
[2019-02-04] MEDS: levoTHYROXINE 125mcg tablet PO SCH (07:55)
[2019-02-04] MEDS: NICOTINE POLACRILEX 2 MG LOZENGE BC PRN ×4 (07:55→19:05)
[2019-02-04] MEDS: metFORMIN 500mg tablet PO SCH ×2 (07:55→17:00)
[2019-02-04] MEDS: ESCITALOPRAM OXALATE 5 MG TABLET PO SCH (07:56)
[2019-02-04] MEDS ORDERED: mag hydrox/Alum hydrox/simeth 30ml oral suspension PO PRN (15:55)
[2019-02-04] MEDS ORDERED: magnesium hydroxide 30ml (MOM) UD suspension PO PRN (15:55)
[2019-02-04] MEDS ORDERED: loperamide 2mg capsule PO PRN (15:55)
[2019-02-04] MEDS ORDERED: acetaminophen 325mg tablet PO PRN ×2 (15:55)
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
[2019-02-04 19:31] VITALS: BP 117/74
[2019-02-04] MEDS: docusate sod 100mg capsule PO SCH (20:23)
[2019-02-04] MEDS: risperiDONE 0.5mg tablet PO SCH (20:24)
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
[2019-02-04] MEDS: HYDROcodone/acetaminophen 5mg/325mg tablet PO PRN (22:31)
[2019-02-05] MEDS: NICOTINE POLACRILEX 2 MG LOZENGE BC PRN ×6 (06:51→18:18)
[2019-02-05 07:28] VITALS: BP 105/75
[2019-02-05] MEDS: levoTHYROXINE 125mcg tablet PO SCH (07:51)
[2019-02-05] MEDS: ESCITALOPRAM OXALATE 5 MG TABLET PO SCH (07:51)
[2019-02-05] MEDS: metFORMIN 500mg tablet PO SCH ×2 (07:51→17:31)
--- NOTE | 2019-02-05 08:21 | NUR ---
SS met with pt and updated her psychosocial assessment. Per session, pt is appropriate but as we talk about more specific details of her daily life outside of the hospital setting, pt's perceptions continues to be informed by her delusional beliefs of having a spouse, 2 kids and a home here in [place]. However, pt's unable to provide basic details re this family & home; she's unable to provide an address, the school where her children attends and the last time she saw them. Pt also believes that she has a sizeable trust fund and a crooked title attorney who's been preventing her from accessing that money. When asked about her plans for accessing basic needs such as food & [facility] upon d/c, pt reports that she will just go home to her house and cook her meals there and spend time w/family; pt's unable to provide any information w/re to location of her home or how she might get there. When asked about how pt would f/u with outpatient services/treatment, pt reports, "I'm fine and healthy, I won't need to.The doctors just want to keep me here, I'm going to tell the truck shop mechanic that I don't need to stay here." Dispo: Pt continues to endorse delusional beliefs which impairs her judgement and contributes to her functional impairments w/re to self care activities. Plan: Pt has been referred for PS conservatorship. SS will continue to monitor and provide psychosocial support. Addendum: 02/05/19 at 0841 by Clementine Duffy SS Amended: Links added.
[2019-02-05] MEDS: HYDROcodone/acetaminophen 5mg/325mg tablet PO PRN ×3 (09:37→20:09)
[2019-02-05] MEDS: hydrOXYzine 25 MG tablet PO PRN (10:53)
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
[2019-02-05] MEDS: docusate sod 100mg capsule PO SCH (20:07)
[2019-02-05] MEDS: risperiDONE 0.5mg tablet PO SCH (20:09)
[2019-02-05 20:10] VITALS: BP 118/87
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
[2019-02-06] MEDS: metFORMIN 500mg tablet PO SCH ×2 (07:18→16:44)
[2019-02-06] MEDS: ESCITALOPRAM OXALATE 5 MG TABLET PO SCH (07:19)
[2019-02-06] MEDS: levoTHYROXINE 125mcg tablet PO SCH (07:19)
[2019-02-06 07:21] VITALS: BP 109/67
[2019-02-06] MEDS: NICOTINE POLACRILEX 2 MG LOZENGE BC PRN ×4 (08:46→18:35)
[2019-02-06] MEDS: hydrOXYzine 25 MG tablet PO PRN (09:08)
--- NOTE | 2019-02-06 11:22 | NUR ---
reassessment: Patient on average is eating well, 75-100% PO intake, sometimes eating only 50-75%, overall intake is meeting needs. Snacks are offered. Patient would benefit from multivitamin to support wound healing, patient has left knee decubitus ulcer, tendon visible with wound vac, discussed recommendation with bedside RN, to discuss with MD. Will continue to follow. Rec: 1. continue regular diet 2. recommend MVI to support wound healing, d/w bedside RN 3. wt per rx 4. Encourage PO intake Addendum: 02/06/19 at [address] Amended: Links added.
--- NOTE | 2019-02-06 15:55 | NUR ---
Pt rtd from [place] Hearing and appears to be down-spirited. SS checked-in w/pt, utilized [place] strategies to support pt in identifying her emotions & thoughts re the outcome of the hearing and upcoming skin graft procedure. Per session, pt is accepting of the outcome of her hearing reporting that "this will allow me time to heal and get support so I can get into a safe housing and have services to help me stay healthy." Pt also expressed some anxiety about the skin graft procedure but also indicated that she feels that this will help her knee to heal properly. Plan: SS to continue to provide 1:1 check in as needed and support dcp. Clementine Duffy LCSW Addendum: 02/06/19 at 1617 by Clementine Duffy Amended: Links added.
[2019-02-06] MEDS: HYDROcodone/acetaminophen 5mg/325mg tablet PO PRN ×2 (16:04→20:16)
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
[2019-02-06] MEDS: risperiDONE 0.5mg tablet PO SCH (20:15)
[2019-02-06] MEDS: docusate sod 100mg capsule PO SCH (20:16)
[2019-02-06 20:25] VITALS: BP 126/87
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
[2019-02-07 07:49] VITALS: BP 108/70
[2019-02-07] MEDS: NICOTINE POLACRILEX 2 MG LOZENGE BC PRN ×6 (07:53→18:21)
--- NOTE | 2019-02-07 08:13 | NUR ---
RE: NPO status This nurse called Dr. Mcmillan's office, then the wound med care manager at [facility] and then OR and spoke too Yasir. Per Dr. Mcmillan's office she would be scheduled in OR. Per wound med care manager they do not know anything about it. Per racing manager, Yasir, "we have a full schedule there is no way we can get her in and she is not on the schedule for today." Per Tory, dip unit operator, pt's surgery was cancelled yesterday due to the patient had a court hearing.
[2019-02-07] MEDS: ESCITALOPRAM OXALATE 5 MG TABLET PO SCH (08:28)
[2019-02-07] MEDS: levoTHYROXINE 125mcg tablet PO SCH (08:28)
[2019-02-07] MEDS: metFORMIN 500mg tablet PO SCH ×2 (08:28→16:08)
[2019-02-07] MEDS: multivitamins, therapeutics tablet PO SCH (08:29)
[2019-02-07] MEDS: LORazepam 1 MG tablet PO PRN (09:32)
[2019-02-07] MEDS: HYDROcodone/acetaminophen 5mg/325mg tablet PO PRN ×2 (09:32→20:18)
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
[2019-02-07 20:00] VITALS: BP 121/87
[2019-02-07] MEDS: risperiDONE 0.5mg tablet PO SCH (20:17)
[2019-02-07] MEDS: docusate sod 100mg capsule PO SCH (20:17)
[2019-02-07] MEDS: traZODone 50mg tablet PO PRN (20:18)
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
[2019-02-08] MEDS: ESCITALOPRAM OXALATE 5 MG TABLET PO SCH (07:20)
[2019-02-08] MEDS: multivitamins, therapeutics tablet PO SCH (07:20)
[2019-02-08] MEDS: NICOTINE POLACRILEX 2 MG LOZENGE BC PRN (07:20)
[2019-02-08] MEDS: levoTHYROXINE 125mcg tablet PO SCH (07:20)
[2019-02-08] MEDS: metFORMIN 500mg tablet PO SCH (07:20)
[2019-02-08] MEDS: LORazepam 1 MG tablet PO PRN (07:20)
[2019-02-08 08:00] VITALS: BP 95/50
--- NOTE | 2019-02-08 10:58 | NUR ---
SS met w/pt this morning provided 1:1 interventions via ID strategies to support pt in verbalizing anxious thoughts and emotions associated with upcoming medical procedure. Pt able to reframe her anxious thoughts and reports, "at least afterwards this won't be a problem for me anymore". Pt was calm, affect brighter than yesterday. Clementine Duffy LCSW Addendum: 02/08/19 at 1101 by Clementine MATTHEW Amended: Links added.
[2019-02-08] MEDS ORDERED: HYDR-3965 PO (16:56)
[2019-02-08] MEDS ORDERED: RISP2TAB97 PO (16:56)
[2019-02-08] MEDS ORDERED: LEVO125T PO (16:56)
[2019-02-08] MEDS ORDERED: ACET-2119 PO (16:56)
[2019-02-08] MEDS ORDERED: NICO-503 MM (16:56)
[2019-02-08] MEDS ORDERED: HYDR50CA PO (16:56)
[2019-02-08] MEDS ORDERED: ESCI10TA PO (16:56)
[2019-02-08] MEDS ORDERED: LORA-269 PO (16:56)
[2019-02-08] MEDS ORDERED: DOCU100C41 PO (16:56)
[2019-02-08] MEDS ORDERED: TRAZ-219 PO (16:56)
[2019-02-08] MEDS ORDERED: SENN-250 PO (16:56)
[2019-02-08] MEDS ORDERED: MULT-673 (16:56)
[2019-02-08] MEDS ORDERED: METF-436 PO (16:56)
[2019-02-10 19:00] VITALS: BP 122/77
== END 2019-02-08 11:02 | disposition short-term general hospital (02) | DRG 750 ==
LOC: ADULT MH 14:38 → UNDOADMIN 14:38 → ADULT MH 15:59
PROVIDERS: ADMIT Psychiatry & Neurology Psychiatry; ATTEND Internal Medicine
DX: F25.0 Schizoaffective disorder, bipolar type (principal); F22 Delusional disorders; E11.9 Type 2 diabetes mellitus without complications; N39.0 Urinary tract infection, site not specified; S81.002A Unspecified open wound, left knee, initial encounter; E03.9 Hypothyroidism, unspecified; F12.90 Cannabis use, unspecified, uncomplicated; B96.20 Unspecified Escherichia coli [E. coli] as the cause of diseases classified elsewhere; F15.90 Other stimulant use, unspecified, uncomplicated; F32.9 Major depressive disorder, single episode, unspecified; Z82.49 Family history of ischemic heart disease and other diseases of the circulatory system; Z80.8 Family history of malignant neoplasm of other organs or systems; F17.200 Nicotine dependence, unspecified, uncomplicated; F17.210 Nicotine dependence, cigarettes, uncomplicated; X58.XXXA Exposure to other specified factors, initial encounter; Y93.89 Activity, other specified; Y92.89 Other specified places as the place of occurrence of the external cause; Y99.8 Other external cause status; Z59.0 Homelessness; Z87.820 Personal history of traumatic brain injury
CPT/HCPCS: 36415; 80053; 80061; 82948; 85025; 87081; 99285; J1200; J1630; J2001; J2060; Q0163; Z7610

== ENCOUNTER 2019-02-08 15:26 | Day surgery (SDC) | payer MEDICAID ==
[2019-02-08 14:50] VITALS: BP 127/72
--- NOTE | 2019-02-08 14:50 | NUR ---
Received from OR via [facility], accompanied by Anesthesiologist and report given by Anesthesiolgist. PATIENT WITH LMA PRESENT. VSS. LEFT LEG IS CDI WITH MARIA E BANDAGES. + DORSALIS PEDIS PRESENT. 20G PIV IN RIGHT UE RUNNING LR @ 100. Addendum: 02/08/19 at 1509 by Edgar Boyer RN, RN Amended: Links added.
[2019-02-08 15:00] VITALS: BP 110/69
[2019-02-08 15:10] VITALS: BP 121/69
[2019-02-08 15:20] VITALS: BP 120/71
[~2019-02-08 15:26] MED LIST changes: -LEVO500T89 PO; +LIDOcaine 1% 30ml preserv. free vial ONE; +LIDOcaine 2% (20mg/ml) 5ml vial ONE; +RISP2TAB3 PO; +TRAZ-251 PO; +clindamycin phosphate 150mg/ml inj. ONE; +epiNEPHrine 1 mg/ml inj ONE; +fentaNYL/PF 50MCG/1 ML 2ML syringe ONE; +meperidine/PF 25mg/ml syringe IV PRN; +midazolam 2 mg/2 ml injection ONE; +mineral oil 10ml sterile, topical TP ONE; +morphine 4 MG/ML inj SYRINge IV PRN; +ondansetron/PF 4mg/2ml inj IV PRN; +ondansetron/PF 4mg/2ml inj ONE; +proCHLORperazine 10 MG/2 ml inj IV PRN; +propofol inj 20 ML IV ONE; +ringers solution, lacted 1,000 ML IV SCH; +sevoflurane 250ml liquid IH ONE
[2019-02-08 15:30] VITALS: BP 118/68
--- NOTE | 2019-02-08 15:40 | NUR ---
ALL CRITERIA FOR TRANSFER TO THE MENTAL HEALTH FLOOR HAS BEEN ACHIEVED. VSS. BED LOW, CALL LIGHT AND VS. SET IN PLACE. RN PRESENT TO ACCEPT CARE. PATIENT RESTING COMFORTABLY IN BED. BELONGINGS SENT WITH PATIENT. DRESSINGS CDI. ORDERS TO TRANSFER BY MD BAPTISTE RECIEVED. Addendum: 02/08/19 at 1552 by Edgar Boyer RN RN Amended: Links added.
[2019-02-08] MEDS ORDERED: MULT-673 (16:56)
[2019-02-08] MEDS ORDERED: TRAZ-219 PO (16:56)
[2019-02-08] MEDS ORDERED: METF-436 PO (16:56)
[2019-02-08] MEDS ORDERED: SENN-250 PO (16:56)
[2019-02-08] MEDS ORDERED: LEVO125T PO (16:56)
[2019-02-08] MEDS ORDERED: LORA-269 PO (16:56)
[2019-02-08] MEDS ORDERED: DOCU100C41 PO (16:56)
[2019-02-08] MEDS ORDERED: HYDR50CA PO (16:56)
[2019-02-08] MEDS ORDERED: RISP2TAB97 PO (16:56)
[2019-02-08] MEDS ORDERED: NICO-503 MM (16:56)
[2019-02-08] MEDS ORDERED: ACET-2119 PO (16:56)
[2019-02-08] MEDS ORDERED: ESCI10TA PO (16:56)
[2019-02-08] MEDS ORDERED: HYDR-3965 PO (16:56)
== END 2019-02-08 15:40 | disposition short-term general hospital (02) ==
LOC: PAS 15:26
PROVIDERS: ATTEND Surgery
DX: T81.89XA Other complications of procedures, not elsewhere classified, initial encounter (principal); E11.9 Type 2 diabetes mellitus without complications; F22 Delusional disorders; F17.290 Nicotine dependence, other tobacco product, uncomplicated; Z88.0 Allergy status to penicillin; Z79.899 Other long term (current) drug therapy; Y83.8 Other surgical procedures as the cause of abnormal reaction of the patient, or of later complication, without mention of misadventure at the time of the procedure; Y92.89 Other specified places as the place of occurrence of the external cause
CPT/HCPCS: 15100; A6223; J0171; J2001; J2250; J2405; J2704; J3010; J3490; J7120; A4618; A6446; A6449; A7000

== ENCOUNTER 2019-05-03 14:30 | Inpatient (IN) | payer MEDICAID ==
[~2019-05-03] VITALS: Ht 165.1 cm; Wt 70.8 kg
[~2019-05-03 14:30] MED LIST changes: +ACET-2119 PO; +CLE150C PO; +DOCU100C41 PO; -ESCI10TA PO; +ESCI20TA45 PO; +HYDR-4353 PO; -LIDOcaine 1% 30ml preserv. free vial ONE; -LIDOcaine 2% (20mg/ml) 5ml vial ONE; +LORA-268 PO; +METF-436 PO; -METF500T PO; +NICO-503 MM; +NICO-630 TD; +Non-Formulary TP; -RISP2TAB3 PO; +RISP4TAB2 PO; -TRAZ-251 PO; +TRAZ150T78 PO; +XYL25J TOP; -clindamycin phosphate 150mg/ml inj. ONE; -epiNEPHrine 1 mg/ml inj ONE; -fentaNYL/PF 50MCG/1 ML 2ML syringe ONE; -meperidine/PF 25mg/ml syringe IV PRN; -midazolam 2 mg/2 ml injection ONE; -mineral oil 10ml sterile, topical TP ONE; -morphine 4 MG/ML inj SYRINge IV PRN; -ondansetron/PF 4mg/2ml inj IV PRN; -ondansetron/PF 4mg/2ml inj ONE; -proCHLORperazine 10 MG/2 ml inj IV PRN; -propofol inj 20 ML IV ONE; -ringers solution, lacted 1,000 ML IV SCH; -sevoflurane 250ml liquid IH ONE
[2019-05-03 20:00] VITALS: BP 115/78
[2019-05-03] MEDS ORDERED: metFORMIN 500mg tablet PO ONE (22:10)
[2019-05-03] MEDS ORDERED: risperiDONE 2mg tablet PO ONE (22:10)
[2019-05-03] MEDS ORDERED: docusate sod 100mg capsule PO ONE (22:10)
[2019-05-03] MEDS ORDERED: clindamycin 150mg capsule PO ONE (22:15)
[2019-05-03] MEDS: acetaminophen 325mg tablet PO PRN (22:34)
--- NOTE | 2019-05-04 00:24 | NUR ---
ADMISSION NOTE: Patient arrived on unit at 1952 hours. Patient was transferred back from [facility]. As per chart notes patient was transferred back to [facility] due to medical issues. Pt was accompanied by ARIEL Stubbs and transported via wheelchair. Patient is alert and oriented x 4. Patient was searched and skin check was completed by SAYDA Armando and SAYDA Loo. Patient has a healing surgical wound/skin graft on left knee. Pictures were obtained and placed in chart. Wound was cleansed and redressed. Pt states I am happy to be back, that place didnt know what they were doing. Patient reports feeling anxious I have had a big day. Patient was observed talking appropriately with other peers. Pt. c/o of left knee pain and Tylenol was administered with effect. Pt. c/o of some abdominal tenderness, states she has a small bowel movement today. Pt. wad administered Colace with her HS medications. Pt. has one more dose of Clindamycin 300 mg for a tooth infection. Pt does not report any tooth pain.
[2019-05-04] MEDS ORDERED: loperamide 2mg capsule PO PRN (01:45)
[2019-05-04] MEDS ORDERED: acetaminophen 325mg tablet PO PRN (01:45)
[2019-05-04] MEDS ORDERED: mag hydrox/Alum hydrox/simeth 30ml oral suspension PO PRN (01:45)
[2019-05-04] MEDS: ESCITALOPRAM OXALATE 5 MG TABLET PO SCH (07:24)
[2019-05-04] MEDS: levoTHYROXINE 112mcg tablet PO SCH (07:25)
[2019-05-04 07:37] VITALS: BP 110/55
[2019-05-04] MEDS ORDERED: FLU VACC QS2019-20 36MOS UP/PF 60 MCG/0.5 ML SYRINGE IMVAC ONE (10:00)
--- NOTE | 2019-05-04 13:43 | NUR ---
WOUND CONSULT Called and spoke with outpatient wound care to request consult with Dr. Mcmillan. Pt will be seen on Tuesday, 05/07
[2019-05-04] MEDS ORDERED: NEOM28.37 TOP (14:35)
[2019-05-04] MEDS ORDERED: CLIN300C3 PO (14:35)
[2019-05-04] MEDS ORDERED: DOCU100C40 PO (14:35)
[2019-05-04] MEDS ORDERED: ESCI20TA PO (14:35)
[2019-05-04] MEDS ORDERED: RISP4TAB2 PO (14:35)
[2019-05-04] MEDS ORDERED: METF-436 PO (14:35)
[2019-05-04] MEDS ORDERED: LEVO125T PO (14:35)
--- NOTE | 2019-05-04 15:52 | NUR ---
Nursing Progress Note: Legal hold: LPS Report received from nurse with use of Prabha MAK RN. Why are they here: Patient arrived on unit at 1952 hours. Patient was transferred back from [facility]. As per chart notes patient was transferred back to [facility] due to medical issues. Assessment Patient is observed sleeping at change of shift. She wakes prior to breakfast and sits in the chair in the kay. She appears happy as she smiles and chats with staff and peers. She eats her meals in the group room with others. She attends all activities and groups. Patient takes her morning medications without any issue. Dressing is change after assessment from hospitalist. Patient denies any needs. S/I, H/I: denies A/VH: denies Sleep: 7.75hrs NOC ADL's: Independent Group attendance: yes Were meds taken: yes Any med S/E: None reported or observed. Mental Status Exam Appearance: clean and appropriate Eye contact: direct Behavior: friendly and cooperative Speech: clear, soft tone, normal rate and rhythm Mood: happy Affect: congruent Thought process: linear Thought Content: no delusional thought content espressed Cognition: Alert & oriented x 4 Insight: fair Judgment: fair Interventions PRN's used: none Therapeutic interventions: 1:1 therapeutic assessment, maintained safe therapeutic milieu, provided active listening with positive reinforcement, provided medication administration/education/monitoring as needed; Q15 safety checks. Restraints/seclusion/emergency medication: N/A Justification of Continued Inpatient Treatment: Continued therapeutic support and medication management needed to provide stabilization, prevent decompensation, improve coping mechanisms decreasing risk to patient and re-admittance.
[2019-05-04 19:49] VITALS: BP 115/78
[2019-05-04] MEDS: risperiDONE 2mg tablet PO SCH (21:14)
[2019-05-04] MEDS: metFORMIN 500mg tablet PO SCH (21:15)
[2019-05-04] MEDS: docusate sod 100mg capsule PO SCH (21:15)
[2019-05-04] MEDS ORDERED: ibuprofen tablet 400 MG TABLET PO PRN (21:30)
[2019-05-04] MEDS ORDERED: ibuprofen 200mg tablet PO PRN (21:44)
[2019-05-04] MEDS ORDERED: ibuprofen 200mg tablet PO ONE (21:50)
[2019-05-04] MEDS: LORazepam 0.5 MG tablet PO PRN (21:52)
--- NOTE | 2019-05-04 23:21 | NUR ---
Nursing Progress Note: Legal hold: LPS Report received from nurse with use of Rosio MAK RN. Why are they here: Patient arrived on unit at 1952 hours. Patient was transferred back from [facility]. As per chart notes patient was transferred back to [facility] due to medical issues. Assessment What happened this shift: Pt up in group room at shift change. Pt interacting with staff and peers. Pt seems to be settling back in. Pts mom called to see how pt. was doing. Pts mom stated Prabha wanted to come live with her, but with her health issues and she lives in a senior citizen community. Pt appears a little anxious aeb constricted look on face. Pt states I dont know what is going on, what is going to happen next(Pt unsure where she will live). This publicity writer reassured pt. that SW will work on getting her placement. Pt requests something for anxiety. Pt c/o of no BM for a couple of days and last one reported was small. Colace 100 mg BID is prescribed and prune juice given. Pt reports knee pain 11/04, Ibuprofen 600mg was administered. Pt. retired to bed shortly after HS snack. S/I, H/I: Pt denies both, none observed. A/VH: Pt denies both, none observed. Sleep: Fell asleep without PRN. See Sleep Assessment for total hours. ADL's: Independent Group attendance: assembler 1st shift, no group. Were meds taken: Takes medication without incident. Any med S/E: None reported or observed. Mental Status Exam Appearance: Neat, clean, wearing own clothes Eye contact: Good Behavior: Cooperative, a little anxious Speech: Clear, audible, normal rate/rhythm Mood: Unsure Affect: Restricted with some brightening Thought process: Linear Thought Content: Doesnt know what is going on. What is going to happen next? Cognition: A&O x4 Insight: Fair Judgment: Fair Interventions PRN's used: None Therapeutic interventions: 1:1 therapeutic assessment, maintained safe therapeutic milieu, provided active listening with positive reinforcement and reassurance, provided medication administration/education/monitoring as needed; Q15 safety checks. Restraints/seclusion/emergency medication: N/A Justification of Continued Inpatient Treatment: Continued therapeutic support and medication management needed to provide stabilization, prevent decompensation, and improve coping mechanisms decreasing risk to patient and re-admittance.
[2019-05-05 07:30] VITALS: BP 121/69
[2019-05-05] MEDS: levoTHYROXINE 112mcg tablet PO SCH (08:07)
[2019-05-05] MEDS: docusate sod 100mg capsule PO SCH ×2 (08:07→20:18)
[2019-05-05] MEDS: metFORMIN 500mg tablet PO SCH ×2 (08:07→20:18)
[2019-05-05] MEDS: ESCITALOPRAM OXALATE 5 MG TABLET PO SCH (08:07)
--- NOTE | 2019-05-05 15:16 | NUR ---
Nursing Progress Note: Prabha Legal hold: LPS Report received from SAYDA Armando with use of SBAR Why are they here: Patient arrived on unit at 1952 hours. Patient was transferred back from [facility]. As per chart notes patient was transferred back to [facility] due to medical issues. Assessment What happened this shift: Patient was in room, awake and lying on bed at change of shift. When asked why she thought she had returned she stated nobody wants me. Explained that it was because of the open healing wound to her left knee. She did admit that she did not like the unit, and further explained that no one could hold a conversation and they drooled when they talked. Continues to demonstrate delusional thoughts regarding Radu and her daughter. We discussed how this was a delusional thought as she continues to be unable to provide further history. Patient accepts this explanation but then continues to talk about them as though they do exist. Interacts well with staff and other clients on the unit. S/I, H/I: Denies and no history A/VH: Denies Sleep: 7 ADL's: Showered today Group attendance: Yes Were meds taken: Without difficulty Any med S/E: None observed Mental Status Exam Appearance: well groomed, wearing street clothes Eye contact: Direct Behavior: Anxious, restless Speech: soft, normal rate, rhythm Mood: Lonely Affect: Congruent with mood Thought process: [place] Thought Content: Delusional thoughts regarding Radu and her daughter Cognition: A&O x4 Insight: Fair Judgment: Fair Interventions PRN's used: None Therapeutic interventions: 1:1 therapeutic assessment, maintained safe therapeutic milieu, provided active listening with positive reinforcement and reassurance, provided medication administration/education/monitoring as needed; Q15 safety checks. Restraints/seclusion/emergency medication: N/A Justification of Continued Inpatient Treatment: Continued therapeutic support and medication management needed to provide stabilization, prevent decompensation, and improve coping mechanisms decreasing risk to patient and re-admittance.
[2019-05-05] MEDS: LORazepam 0.5 MG tablet PO PRN (18:21)
[2019-05-05 20:12] VITALS: BP 113/68
[2019-05-05] MEDS: risperiDONE 2mg tablet PO SCH (20:18)
[2019-05-05] MEDS: HYDROcodone/acetaminophen 10/325mg tab PO PRN (21:06)
--- NOTE | 2019-05-06 01:16 | NUR ---
Nursing Progress Note: Prabha Legal hold: LPS Report received from SAYDA Avelar with use of SBAR Why are they here: Patient arrived on unit at 1952 hours. Patient was transferred back from [facility]. As per chart notes patient was transferred back to [facility] due to medical issues. Assessment What happened this shift: Following shift change this patient was ambulating around the unit. The patient initially presented as sad. When questioned this patient only admits to mild depression. She denied S/I or H/I. Patients knee dressing is clean and intact. Patients gait is normal. The patient is medication compliant. The patient was reported delusional on day shift, this is not evident this night. Late in the evening patient complained of bilateral leg pain, she requested and was given a Coulter. S/I, H/I: Denies. A/VH: Denies Sleep: Will tally at 8000 hours. ADL's: Patient is clean and presentable. She showered on day shift. Group attendance: Yes, on days. Were meds taken: Patient is medication compliant. Any med S/E: None. Mental Status Exam Appearance: well groomed, wearing street clothes Eye contact: Direct. Behavior: Quiet. Speech: soft, normal rate, rhythm Mood: Patient pines for her family. Affect: Congruent with mood. Thought process: On days reported as "concrete." Tonight patient is not descriptive of her thoughts. Thought Content: Unknown. Cognition: A&O x4 Insight: Fair Judgment: Fair Interventions PRN's used: None Therapeutic interventions: 1:1 therapeutic assessment, maintained safe therapeutic milieu, provided active listening with positive reinforcement and reassurance, provided medication administration/education/monitoring as needed; Q15 safety checks. Restraints/seclusion/emergency medication: N/A Justification of Continued Inpatient Treatment: Continued therapeutic support and medication management needed to provide stabilization, prevent decompensation, and improve coping mechanisms decreasing risk to patient and re-admittance.
[2019-05-06 07:35] VITALS: BP 115/65
[2019-05-06] MEDS: ESCITALOPRAM OXALATE 5 MG TABLET PO SCH (07:39)
[2019-05-06] MEDS: levoTHYROXINE 112mcg tablet PO SCH (07:39)
[2019-05-06] MEDS: metFORMIN 500mg tablet PO SCH ×2 (07:39→20:00)
[2019-05-06] MEDS: docusate sod 100mg capsule PO SCH ×2 (07:39→20:25)
--- NOTE | 2019-05-06 15:54 | NUR ---
Nursing Progress Note: Prabha Legal hold: LPS Report received from SAYDA Mcfarlane with use of SBAR Why are they here: Patient arrived on unit at 1952 hours. Patient was transferred back from [facility]. As per chart notes patient was transferred back to [facility] due to medical issues. Assessment What happened this shift: Patient was awake and lying on bed at change of shift. Compliant with medications. Dressed independently and ambulated to community room awaiting breakfast. Her and another patient became increasingly anxious r/t another patient who was experiencing a seizure. Provided redirection which was affective. Patient has not made any delusional statements however, continues to ask repeatedly I dont know what I am supposed to do, where am I going to go. Provided her a note pad to write down the information to refer to when she feels unsure. Continues to be overly concerned about future, asks repeatedly about what will happen once discharged. S/I, H/I: Has never felt this way A/VH: has never experienced these (according to patient) Sleep: 8 hours ADL's: independent, requires leg to be wrapped to maintain dressing Group attendance: no groups today, out of room interacting with others Were meds taken: yes Any med S/E: no Mental Status Exam Appearance: neatly groomed, wearing her own clothes Eye contact: direct Behavior: kind, pleasant Speech: normal rate, rhythm, tone Mood: pessimistic I just dont know what to do, no one wants me, I am alone Affect: Congruent with mood Thought process: Linear Thought Content: focused on terminal supervisor discharge plans Cognition: A&O x4 Insight: Fair Judgment: Fair Interventions PRN's used: None Therapeutic interventions: 1:1 therapeutic assessment, maintained safe therapeutic milieu, provided active listening with positive reinforcement and reassurance, provided medication administration/education/monitoring as needed; Q15 safety checks. Restraints/seclusion/emergency medication: N/A Justification of Continued Inpatient Treatment: Continued therapeutic support and medication management needed to provide stabilization, prevent decompensation, and improve coping mechanisms decreasing risk to patient and re-admittance.
[2019-05-06 19:52] VITALS: BP 124/67
[2019-05-06] MEDS: risperiDONE 2mg tablet PO SCH (20:25)
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
[2019-05-07 07:31] VITALS: BP 101/60
[2019-05-07] MEDS: ESCITALOPRAM OXALATE 5 MG TABLET PO SCH (07:35)
[2019-05-07] MEDS: levoTHYROXINE 112mcg tablet PO SCH (07:35)
[2019-05-07] MEDS: docusate sod 100mg capsule PO SCH ×2 (07:36→20:42)
[2019-05-07] MEDS: metFORMIN 500mg tablet PO SCH ×2 (07:36→20:42)
--- NOTE | 2019-05-07 14:38 | NUR ---
Nursing Progress Note: Prabha Legal hold: LPS Report received from SAYDA Hutchinson with use of SBAR Why are they here: Patient arrived on unit at 1952 hours. Patient was transferred back from [facility]. As per chart notes patient was transferred back to [facility] due to medical issues. Assessment What happened this shift: Patient was awake and sitting in bed at shift change. Medication compliant. Joined others in the community room for breakfast. Interacts appropriately with both staff and others on the unit. Continues to focus on placement. Wants to live with her mother, which she does understand would not be the best environment at this time. Showered, dressing changed as it was damp. Did report a small piece of tooth broke off of right upper molar. No pain reported. S/I, H/I: Has never felt this A/VH: Has always denied Sleep: 8.75 hours ADL's: independent, requires assistance to wrap left leg due to open wound Group attendance: Yes Were meds taken: Yes Any med S/E: none reported, none observed Mental Status Exam Appearance: Well groomed, wearing street clothes Eye contact: Direct Behavior: Appropriate Speech: normal tone, rate and rhythm Mood: good Affect: Congruent with mood Thought process: Linear Thought Content: Future goals, housing, job, relationship. Cognition: A&O x4 Insight: Fair Judgment: Fair Interventions PRN's used: None Therapeutic interventions: 1:1 therapeutic assessment, maintained safe therapeutic milieu, provided active listening with positive reinforcement and reassurance, provided medication administration/education/monitoring as needed; Q15 safety checks. Restraints/seclusion/emergency medication: N/A Justification of Continued Inpatient Treatment: Continued therapeutic support and medication management needed to provide stabilization, prevent decompensation, and improve coping mechanisms decreasing risk to patient and re-admittance.
[2019-05-07 20:00] VITALS: BP 123/74
[2019-05-07] MEDS: risperiDONE 2mg tablet PO SCH (20:42)
--- NOTE | 2019-05-08 02:43 | NUR ---
Nursing Progress Note: Legal hold: LPS Report received from SAYDA Herrera with use of SBAR Why are they here: Patient arrived on unit at 1952 hours. Patient was transferred back from [facility]. As per chart notes patient was transferred back to [facility] due to medical issues. Assessment: What happened this shift: The patient was found in the community room for 1:1. She reports that she's happy to be here. "That place didn't know how to deal with my wound. It's healing well now, I don't know what their problem was." When asked how she's doing, she responded, "Bad, horrible, they're trying to make me go to somewhere I don't want to go. I want to be around normal people." Even though the patient is depressed, she still remains in good spirits. The patient wants off conservatorship, and can't understand why. She still can't explain how she would feed, clothe, and provide housing for herself. She spent the evening in the community room until HS med pass, then went to sleep. S/I, H/I: Denies. "Never" A/VH: Denies Sleep: see sleep assessment ADL's: independent Group attendance: No groups at night. Were meds taken: Yes. Any med S/E: None. Mental Status Exam Appearance: well groomed, clean, hair braided wearing street clothes Eye contact: Direct. Behavior: Quiet, sad, frustrated Speech: Normal Mood: Depressed, sad Affect: Congruent with mood. Thought process: linear Thought Content: missing her family Cognition: A&O x4 Insight: Fair Judgment: Fair Interventions PRN's used: None Therapeutic interventions: 1:1 therapeutic assessment, maintained safe therapeutic milieu, provided active listening with positive reinforcement and reassurance, provided medication administration/education/monitoring as needed; Q15 safety checks. Restraints/seclusion/emergency medication: N/A Justification of Continued Inpatient Treatment: Continued therapeutic support and medication management needed to provide stabilization, prevent decompensation, and improve coping mechanisms decreasing risk to patient and re-admittance.
[2019-05-08] MEDS: ESCITALOPRAM OXALATE 5 MG TABLET PO SCH (07:51)
[2019-05-08] MEDS: docusate sod 100mg capsule PO SCH ×2 (07:51→20:06)
[2019-05-08] MEDS: metFORMIN 500mg tablet PO SCH ×2 (07:51→20:06)
[2019-05-08] MEDS: levoTHYROXINE 112mcg tablet PO SCH (07:51)
[2019-05-08 07:55] VITALS: BP 100/63
[2019-05-08] MEDS: ibuprofen 200mg tablet PO PRN (10:40)
--- NOTE | 2019-05-08 10:41 | NUR ---
Initial: Pt admit w/ schizoaffective disorder PO 75-100% avg carb controlled meals meeting needs. LBM / receiving colace. Pt hx prior L knee PU but healed to where doesn't even need bandaid per MD note. Hx DM last A1C 5.6 and takes glucophage per EMR. No nutrition concerns at this time. Will continue to monitor. Rec: 1. continue carb controlled diet 2. bowel care as needed 3. wt per rx Addendum: 05/08/19 at [address] Amended: Links added.
--- NOTE | 2019-05-08 16:43 | NUR ---
NURSING PROGRESS NOTE Legal hold: LPS Report received from SAYDA Hutchinson with use of SBAR Why are they here: Patient arrived on unit at 1952 hours. Patient was transferred back from [facility]. As per chart notes patient was transferred back to [facility] due to medical issues. Assessment What happened this shift: The patient woke and came to breakfast, med compliant. Converses and supports her peers. Happy and smiling. Goes to groups and talks with roommate. No delusional thoughts. Wanting to find a home. Cooperative and pleasant. S/I, H/I: Denies A/VH: Denies Sleep: Naps ADL's: Self Group attendance: Yes Were meds taken: Yes Any med S/E: none reported, none observed Mental Status Exam Appearance: Well groomed, wearing street clothes Eye contact: Direct Behavior: Pleasant Speech: normal, soft Mood: happy Affect: smiling Thought process: Linear Thought Content: Future goals, housing, job, relationship. Cognition: [place] Insight: Fair Judgment: Fair Interventions PRN's used: None Therapeutic interventions: 1:1 therapeutic assessment, maintained safe therapeutic milieu, provided active listening with positive reinforcement and reassurance, provided medication administration/education/monitoring as needed; Q15 safety checks. Restraints/seclusion/emergency medication: N/A Justification of Continued Inpatient Treatment: Continued therapeutic support and medication management needed to provide stabilization, prevent decompensation, and improve coping mechanisms decreasing risk to patient and re-admittance.
[2019-05-08] MEDS: HYDROcodone/acetaminophen 10/325mg tab PO PRN (17:41)
[2019-05-08 20:00] VITALS: BP 100/63
[2019-05-08] MEDS: risperiDONE 2mg tablet PO SCH (20:06)
--- NOTE | 2019-05-09 02:53 | NUR ---
blaze Progress Note: Legal hold: LPS Report received from SAYDA Gaffney with use of SBAR Why are they here: Patient arrived on unit at 1952 hours. Patient was transferred back from [facility]. As per chart notes patient was transferred back to [facility] due to medical issues. Assessment: What happened this shift: The patient was in the group room. She agreed to 1:1 at her bedside. She states that she's not good. "They can't find me a place because of my knee. I'm just depressed because nobody wants me." The patient also believes that she's not wanted here. "You guys have got to be tired of having me around. Why won't they just let me go. 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 I like to work." There are times that the patient forgets that she's conserved. She laughs when reminded that she is. "Yeah, I forget stuff all the time." She spent the evening in the community room with other clients, then went to bed after HS med pass. S/I, H/I: Denies. A/VH: Denies Sleep: see sleep assessment ADL's: independent Group attendance: No groups at night. Were meds taken: Yes. Any med S/E: None. Mental Status Exam Appearance: well groomed, clean, wears street clothes. Eye contact: Direct. Behavior: Quiet, sad, frustrated Speech: Normal Mood: Depressed, sad Affect: Congruent with mood. Thought process: linear Thought Content: missing her family Cognition: A&O x4 Insight: Fair Judgment: Fair Interventions PRN's used: None Therapeutic interventions: 1:1 therapeutic assessment, maintained safe therapeutic milieu, provided active listening with positive reinforcement and reassurance, provided medication administration/education/monitoring as needed; Q15 safety checks. Restraints/seclusion/emergency medication: N/A Justification of Continued Inpatient Treatment: Continued therapeutic support and medication management needed to provide stabilization, prevent decompensation, and improve coping mechanisms decreasing risk to patient and re-admittance.
[2019-05-09] MEDS: ESCITALOPRAM OXALATE 5 MG TABLET PO SCH (07:29)
[2019-05-09] MEDS: levoTHYROXINE 112mcg tablet PO SCH (07:30)
[2019-05-09] MEDS: docusate sod 100mg capsule PO SCH ×2 (07:30→20:28)
[2019-05-09] MEDS: metFORMIN 500mg tablet PO SCH ×2 (07:30→20:28)
[2019-05-09 08:00] VITALS: BP 146/86
--- NOTE | 2019-05-09 08:39 | NUR ---
PLACEMENT UPDATE Called [facility] office for update on placement. "Prabha is to remain at [facility] until her knee heals". RITU Carreon
[2019-05-09 09:03] VITALS: BP 98/60
--- NOTE | 2019-05-09 17:53 | NUR ---
NURSING PROGRESS NOTE Legal hold: LPS Report received from SAYDA Mott with use of SBAR Why are they here: Patient arrived on unit at 1952 hours. Patient was transferred back from [facility]. As per chart notes patient was transferred back to [facility] due to medical issues. Assessment What happened this shift: Patient up early dressed, drinking coffee making small talk with peers. Patient showered and left knee dressing was changed. Wound appears to have healed significantly since discharge. No signs of infection. Patient does understand that she will not be placed until her knee has healed, per [facility] office. Patient does have poor memory and keeps asking about discharge. S/I, H/I: Denies A/VH: Denies Sleep: 8.5 hrs NOC. ADL's: Self Group attendance: Yes Were meds taken: Yes Any med S/E: none reported, none observed Mental Status Exam Appearance: Freshly showered, dressed in personal attire. Eye contact: Direct Behavior: Cooperative and calm. Speech: normal, soft Mood: Euthymic. Affect: Pleasant. Thought process: Linear. Circumstantial. Thought Content: Where and when she will be discharged. Cognition: Alert & oriented. Insight: Fair Judgment: Fair Interventions PRN's used: None Therapeutic interventions: 1:1 therapeutic assessment, maintained safe therapeutic milieu, provided active listening with positive reinforcement and reassurance, provided medication administration/education/monitoring as needed; Q15 safety checks. Restraints/seclusion/emergency medication: N/A Justification of Continued Inpatient Treatment: Continued therapeutic support and medication management needed to provide stabilization, prevent decompensation, and improve coping mechanisms decreasing risk to patient and re-admittance.
[2019-05-09 19:35] VITALS: BP 131/88
[2019-05-09] MEDS: risperiDONE 2mg tablet PO SCH (20:28)
--- NOTE | 2019-05-09 22:15 | NUR ---
Nursing Progress Note Legal hold: [facility] conservatorship Client is conserved 2nd to being gravely disabled Report received from Rosendo ALFREDO with use of SBAR Why are they here: The patient is a 43 year old with Schizoaffective Disorder who was readmitted to [facility] after being transferred to an [facility]. Once she arrived at the [facility] the staff felt they could not manage her wound care to her left knee and she was transferred back to [facility]. Assessment What has happened this shift: The patient was observed up on the unit and in the general patient areas. She is pleasant and social with peers and staff. She did receive a visitor as well. One to one with the patient to assess for severity of thought disorder and to discuss her plan of care. The patient stated, "I don't want to stay here. I just want to go home" but when asked where her home was she stated, "I live somewhere with my but I don't know where. I don't have a . I have a boyfriend" She stated that her boyfriend has had no contact with her. She has very poor insight and when asked what her mental health diagnosis was she stated "schizophrenia" but then stated "I don't think I have mental health" She is medications compliant. She was pleasant during the interview. She stated her mood was "pretty good" When asked if she had any problems with anxiety she replied that if she did not get discharged soon she would have anxiety but did not have any this evening. S/I, H/I: None reported A/VH: Denied ADL's: Appeared clean and appropriately dressed Were meds taken: The patient was medication compliant and she denies medication side effects. Mental Status Exam Appearance: She was dressed appropriately and appeared adequately groomed. Eye contact: WNL Behavior: Pleasant and cooperative with unit routine. Speech: coherent, normal rate and rhythm Mood; "it is pretty good" Affect: congruent to stated mood Thought process: Goal directed, limited insight Thought Content: Focused on wanting to be discharged Cognition: alert Insight: Poor Judgment: Poor Interventions PRN's used: none Therapeutic interventions: One to one with the patient to assess for severity of thought disorder and ability to plan for herself if she was not in the secure environment of the inpatient unit. Educated to medications. She is on q 15 minute safety checks. Assessed for medication side effects. Justification of Continued Inpatient Treatment: The patient is unable to verbalize a realistic plan to provide for food, chcf or clothing.
[2019-05-10] MEDS: levoTHYROXINE 112mcg tablet PO SCH (07:11)
[2019-05-10] MEDS: metFORMIN 500mg tablet PO SCH ×2 (07:11→20:59)
[2019-05-10] MEDS: docusate sod 100mg capsule PO SCH ×2 (07:11→20:59)
[2019-05-10] MEDS: ESCITALOPRAM OXALATE 5 MG TABLET PO SCH (07:12)
[2019-05-10 08:44] VITALS: BP 101/66
[2019-05-10] MEDS: acetaminophen 325mg tablet PO PRN (10:59)
[2019-05-10] MEDS: ibuprofen 200mg tablet PO PRN ×2 (14:01→20:59)
--- NOTE | 2019-05-10 15:38 | NUR ---
NURSING PROGRESS NOTE Legal hold: [facility] Report received from SAYDA Mott with use of SBAR Why are they here: Patient arrived on unit at 1952 hours. Patient was transferred back from [facility]. As per chart notes patient was transferred back to [facility] due to medical issues. Assessment What happened this shift: Pt up and visible on the unit just about the entire shift. Pt up for breakfast and all meals, and attended all groups. Pt continues to demonstrate poor insight or delusional thoughts when she says (repeatedly), why cant I just go home? Pt does voice understanding when explained that she doesnt have a home. She says, I know. Pt states shes depressed and bored being here. Pt denies S.I. and a/v hallucinations. Pt was seen by the wound care nurse today and c/o pain in her left knee after and was given motrin. S/I, H/I: Denies A/VH: Denies Sleep: no napping today. ADL's: Self Group attendance: Yes Were meds taken: Yes Any med S/E: none reported, none observed Mental Status Exam Appearance: Freshly showered, dressed in personal attire. Eye contact: Direct Behavior: Cooperative and calm. Speech: normal, soft Mood: Euthymic. Affect: Pleasant. Thought process: Linear. Circumstantial. Thought Content: Where and when she will be discharged. Cognition: Alert & oriented. Insight: Fair Judgment: Fair Interventions PRN's used: tylenol, motrin Therapeutic interventions: 1:1 therapeutic assessment, maintained safe therapeutic milieu, provided active listening with positive reinforcement and reassurance, provided medication administration/education/monitoring as needed; Q15 safety checks. Restraints/seclusion/emergency medication: N/A Justification of Continued Inpatient Treatment: Continued therapeutic support and medication management needed to provide stabilization, prevent decompensation, and improve coping mechanisms decreasing risk to patient and re-admittance.
[2019-05-10 19:45] VITALS: BP 136/82
[2019-05-10] MEDS: risperiDONE 2mg tablet PO SCH (20:59)
--- NOTE | 2019-05-10 23:56 | NUR ---
Nursing Progress Note Legal hold: [facility] conservatorship Report received from SAYDA Tellez with use of SBAR Why are they here: The patient is a 43 year old with Schizoaffective Disorder who was readmitted to [facility] after being transferred to an IMD. Once she arrived at the IMD the staff felt they could not manage her wound care to her left knee and she was transferred back to [facility]. Assessment What has happened this shift: The patient was observed sitting in the hallway chair. Pt is interacting with another female peer. Pt. waves at this headline writer and smiles. During 1:1 pt expresses "I am frustrated, I still don't know what is going to happen to me." "I just want to go home." Pt states "someone was supposed to come get me" but when asked who,pt states "I don't know." Pt reports feeling anxious and "I am bored." Pt was medication compliant. Pt c/o of left knee pain 06/04, Motrin was administed. Pt denies SI, A/VH. S/I, H/I: Pt denies, none observed. A/VH: Pt denies, none observed. Sleep: Currently sleeping with out PRN. See Sleep Assessment for total hours. ADL's: Independent Group attendance: warehouse shift supervisor, no group. Were meds taken: Takes medication without incident. Any med S/E: None reported or observed Mental Status Exam Appearance: Neat, clean, dressed in own clothes. Eye contact: Good Behavior: Cooperative, calm, friendly Speech: Clear, audible, normal rate/rhythm Mood: Frustrated Affect: Restricted with brightening Thought process: Linear, circumstantial. Thought Content: "I want to go home." Cognition: Alert & oriented. Insight: Poor Judgment: Poor Interventions PRN's used: Motrin Therapeutic interventions: 1:1 therapeutic assessment, maintained safe therapeutic milieu, provided active listening with positive reinforcement and reassurance, provided medication administration/education/monitoring as needed; Q15 safety checks. Restraints/seclusion/emergency medication: N/A Justification of Continued Inpatient Treatment: Continued therapeutic support and medication management needed to provide stabilization, prevent decompensation, and improve coping mechanisms decreasing risk to patient and re-admittance.
[2019-05-11] MEDS: docusate sod 100mg capsule PO SCH ×2 (07:24→20:14)
[2019-05-11] MEDS: ESCITALOPRAM OXALATE 5 MG TABLET PO SCH (07:24)
[2019-05-11] MEDS: metFORMIN 500mg tablet PO SCH ×2 (07:24→20:14)
[2019-05-11] MEDS: levoTHYROXINE 112mcg tablet PO SCH (07:24)
[2019-05-11 08:00] VITALS: BP 103/67
--- NOTE | 2019-05-11 16:33 | NUR ---
Nursing Progress Note: ADRIEN Legal hold: [facility] conservatorship Report received from SAYDA Armando with use of SBAR Why are they here: The patient is a 43 year old with Schizoaffective Disorder who was readmitted to [facility] after being transferred to an IMD. Once she arrived at the IMD the staff felt they could not manage her wound care to her left knee and she was transferred back to [facility]. Assessment What has happened this shift: The patient was sleeping in her bed resting peacefully at change of shift. She is pleasant once awake. Pt is amendable to do 1:1 assessment at bedside. Pt has a depressed demeanor today, reports feeling stuck here. Pt denies any needs at this time. Reports 2/10 depression. No SEs observed or reported today. Pt appears indecisive today AEB requesting to take shower and wrap her knee, then quickly changed her mind and decided she wanted to wait. Reports being happy that she is able to speak with her mom on the phone every night. She reports having a good day today and is happy she got to eat pizza. S/I, H/I: Pt denies, none observed A/VH: Pt denies, none observed Sleep: 7.25hrs NOC ADL's: Independent Group attendance: yes Were meds taken: Takes medication without incident. Any med S/E: None reported or observed Mental Status Exam Appearance: Neat, clean, dressed in street clothes. Eye contact: Direct Behavior: Cooperative, friendly Speech: Clear, audible, normal rate/rhythm Mood: Depressed Affect: congruent with mood Thought process: Linear, circumstantial. Thought Content: "I want to get out of here." Cognition: Alert & oriented X4 Insight: Poor Judgment: Poor Interventions PRN's used: Therapeutic interventions: 1:1 therapeutic assessment, maintained safe therapeutic milieu, provided active listening with positive reinforcement and reassurance, provided medication administration/education/monitoring as needed; Q15 safety checks. Restraints/seclusion/emergency medication: N/A Justification of Continued Inpatient Treatment: Continued therapeutic support and medication management needed to provide stabilization, prevent decompensation, and improve coping mechanisms decreasing risk to patient and re-admittance.
[2019-05-11 20:00] VITALS: BP 126/83
[2019-05-11] MEDS: risperiDONE 2mg tablet PO SCH (20:14)
--- NOTE | 2019-05-12 02:05 | NUR ---
Nursing Progress Note Legal hold: [facility] conservatorship Report received from SAYDA Tellez with use of SBAR Why are they here: The patient is a 43 year old with Schizoaffective Disorder who was readmitted to [facility] after being transferred to an IMD. Once she arrived at the IMD the staff felt they could not manage her wound care to her left knee and she was transferred back to [facility]. Assessment What has happened this shift: The patient is social at shift change, talks with staff and peers. She expresses sadness that she is still here and doesn't understand why. Pt comforted, and reality reinforcement used with good effect. Pt remains pleasant and smiles occasionally. Pt denies SI, A/VH. S/I, H/I: Pt denies, none observed. A/VH: Pt denies, none observed. Sleep: Currently sleeping with out PRN. See Sleep Assessment for total hours. ADL's: Independent Group attendance: shift engineer, no group. Were meds taken: Takes medication without incident. Any med S/E: None reported or observed Mental Status Exam Appearance: Neat, clean, dressed in own clothes. Eye contact: Good Behavior: Cooperative, calm, friendly Speech: Clear, audible, normal rate/rhythm Mood: Frustrated Affect: Restricted with brightening Thought process: Linear, circumstantial. Thought Content: "I want to go home." Cognition: Alert & oriented. Insight: Poor Judgment: Poor Interventions PRN's used:none Therapeutic interventions: 1:1 therapeutic assessment, maintained safe therapeutic milieu, provided active listening with positive reinforcement and reassurance, provided medication administration/education/monitoring as needed; Q15 safety checks. Restraints/seclusion/emergency medication: N/A Justification of Continued Inpatient Treatment: Continued therapeutic support and medication management needed to provide stabilization, prevent decompensation, and improve coping mechanisms decreasing risk to patient and re-admittance.
[2019-05-12 07:00] VITALS: BP 104/67
[2019-05-12] MEDS: levoTHYROXINE 112mcg tablet PO SCH (07:40)
[2019-05-12] MEDS: metFORMIN 500mg tablet PO SCH ×2 (07:41→20:10)
[2019-05-12] MEDS: docusate sod 100mg capsule PO SCH ×2 (07:41→20:10)
[2019-05-12] MEDS: ESCITALOPRAM OXALATE 5 MG TABLET PO SCH (07:41)
--- NOTE | 2019-05-12 15:45 | NUR ---
Nursing Progress Note: ADRIEN Legal hold: [facility] Report received from SAYDA Guerrero with use of SBAR Why are they here: The patient is a 43 year old with Schizoaffective Disorder who was readmitted to [facility] after being transferred to an IMD. Once she arrived at the IMD the staff felt they could not manage her wound care to her left knee and she was transferred back to [facility]. Assessment What has happened this shift: The patient was sleeping in her bed resting peacefully at change of shift. She is pleasant once awake. Pt is amendable to do 1:1 assessment at bedside. Pt reports that she wish that she didnt have her knee injury so I could just get out of here already. Centrifuge Separator Tender spoke with her about being optimistic and about how much her injury has improved over time. She reports speaking with her mom last night and reporting that she would rather than be here another day. Pt feels passionately about this and has a difficult time viewing her stay positively. She reports she has been treated well by staff and peers but, I just want to be in my own house already and be able to make my own meals and do my own laundry. She denies any SEs to medications, none were objectively observed. Pt showered without alerting this nurse to have her wound covered. Pt sat with wet dressing for unknown amount of time. RN changed wound dressing and educated pt again on alerting her nurse to keep her wound and dressing dry. Pt requested PRN Ativan, reports she feels anxiety d/t intrusive thoughts and was bouncing her good leg rapidly. Pt took all medications as directed by her physician. S/I, H/I: Pt denies, none observed A/VH: Pt denies, none observed Sleep: 7 hrs NOC ADL's: Independent Group attendance: yes Were meds taken: Takes medication without incident. Any med S/E: None reported or observed Mental Status Exam Appearance: Neat, clean, dressed in street clothes. Eye contact: Direct Behavior: Cooperative, friendly Speech: Clear, audible, normal rate/rhythm Mood: I want to leave. Affect: congruent with mood Thought process: Linear, circumstantial. Thought Content: "I need to get out of here." Cognition: Alert & oriented X4 Insight: Poor Judgment: Poor Interventions PRN's used: Ativan X1 Therapeutic interventions: 1:1 therapeutic assessment, maintained safe therapeutic milieu, provided active listening with positive reinforcement and reassurance, provided medication administration/education/monitoring as needed; Q15 safety checks. Restraints/seclusion/emergency medication: N/A Justification of Continued Inpatient Treatment: Continued therapeutic support and medication management needed to provide stabilization, prevent decompensation, and improve coping mechanisms decreasing risk to patient and re-admittance.
[2019-05-12] MEDS: ibuprofen 200mg tablet PO PRN (17:16)
[2019-05-12] MEDS: risperiDONE 2mg tablet PO SCH (20:10)
[2019-05-12 20:25] VITALS: BP 120/71
--- NOTE | 2019-05-12 22:38 | NUR ---
Nursing Progress Note Legal hold: [facility] conservatorship Report received from SAYDA Tellez with use of SBAR Why are they here: The patient is a 43 year old with Schizoaffective Disorder who was readmitted to [facility] after being transferred to an IMD. Once she arrived at the IMD the staff felt they could not manage her wound care to her left knee and she was transferred back to [facility]. Assessment What has happened this shift: Patient was visible on unit, socializing appropriately with staff and peers. Pt. came to this ghost writer and stated "Why didn't I get my morning medications today and I haven't received any tonight." Reassured pt that she had received medication and allowed pt to view eMAR. Pt. stated "Oh, I don't remember." Again reassured pt. that she would be receiving HS medications soon. Pt continues to express frustration and sadness that she can't be on her own, "You know I can take care of myself." Pt retired to bed shortly after HS snack. Pt denies SI, A/VH. S/I, H/I: Pt denies, none observed. A/VH: Pt denies, none observed. Sleep: Currently sleeping with out PRN. See Sleep Assessment for total hours. ADL's: Independent Group attendance: restaurant shift supervisor, no group. Were meds taken: Takes medication without incident. Any med S/E: None reported or observed Mental Status Exam Appearance: Neat, clean, dressed in own clothes. Eye contact: Good Behavior: Cooperative, calm, friendly Speech: Clear, audible, normal rate/rhythm Mood: Frustrated, sad Affect: Restricted with brightening Thought process: Linear, circumstantial. Thought Content: "I want to go home." Cognition: Alert & oriented. Insight: Poor Judgment: Poor Interventions PRN's used: None Therapeutic interventions: 1:1 therapeutic assessment, maintained safe therapeutic milieu, provided active listening with positive reinforcement and reassurance, reality orientation as needed, provided medication administration/education/monitoring as needed; Q15 safety checks. Restraints/seclusion/emergency medication: N/A Justification of Continued Inpatient Treatment: Patient is conserved, waiting for left knee to heal before finding placement.
[2019-05-13 07:00] VITALS: BP 112/62
[2019-05-13] MEDS: metFORMIN 500mg tablet PO SCH ×2 (07:48→20:28)
[2019-05-13] MEDS: docusate sod 100mg capsule PO SCH ×2 (07:50→20:28)
[2019-05-13] MEDS: levoTHYROXINE 112mcg tablet PO SCH (07:50)
[2019-05-13] MEDS: ESCITALOPRAM OXALATE 5 MG TABLET PO SCH (07:50)
[2019-05-13] MEDS: LORazepam 0.5 MG tablet PO PRN (12:35)
--- NOTE | 2019-05-13 17:37 | NUR ---
Nursing Progress Note: ADRIEN Legal hold: [facility] conservatorship Report received from SAYDA Guerrero with use of SBAR Why are they here: The patient is a 43 year old with Schizoaffective Disorder who was readmitted to [facility] after being transferred to an IMD. Once she arrived at the IMD the staff felt they could not manage her wound care to her left knee and she was transferred back to [facility]. Assessment What has happened this shift: Patient sleeping upon shift change. Pt. awakens for medications easily. Dressing change to left knee, which is 1.0 x 1.5 cm in length, minimal drainage without odor, no redness, swelling. Discussed that as soon as wound is better we can find placement for her. Knee is healing except over necrotic bone. Pt. is easily discouraged by progress of knee, and feels as if she has already been here so long, it is hard for her to wait for her knee to completely heal. Patient did have a fall at 16:15 in dining room. Patient stood to start walking and did not have nonskid socks on and feet slid out from beneath her. Patient fell on buttocks and upper left side of body. Wyatt Irving notified of no notable damage. VSS. Nonskid socks placed on patient. S/I, H/I: Pt denies A/VH: Pt denies Sleep: 8.25 hrs NOC ADL's: Independent Group attendance: yes Were meds taken: Yes. Any med S/E: None reported or observed Mental Status Exam Appearance: Clean and neat, makeup applied in personal attire. Eye contact: Direct Behavior: Cooperative, friendly Speech: Clear, audible, normal rate/rhythm Mood: Euthymic. Affect: congruent with mood Thought process: Linear, circumstantial. Thought Content: Discharge. Cognition: Alert & oriented X4 Insight: Poor Judgment: Poor Interventions PRN's used: None. Therapeutic interventions: 1:1 therapeutic assessment, maintained safe therapeutic milieu, provided active listening with positive reinforcement and reassurance, provided medication administration/education/monitoring as needed; Q15 safety checks. Restraints/seclusion/emergency medication: N/A Justification of Continued Inpatient Treatment: Continued therapeutic support and medication management needed to provide stabilization, prevent decompensation, and improve coping mechanisms decreasing risk to patient and re-admittance.
[2019-05-13] MEDS: risperiDONE 2mg tablet PO SCH (20:28)
[2019-05-13 20:56] VITALS: BP 120/77
--- NOTE | 2019-05-13 22:09 | NUR ---
Nursing Progress Note Legal hold: [facility] conservatorship Report received from SAYDA Tellez with use of SBAR Why are they here: The patient is a 43 year old with Schizoaffective Disorder who was readmitted to [facility] after being transferred to an IMD. Once she arrived at the IMD the staff felt they could not manage her wound care to her left knee and she was transferred back to [facility]. Assessment What has happened this shift: Patient was sitting in group room with legs elevated on chair at shift change. Pt. presents as tearful and depressed. Pt. has a blunted affect. "I want to go home, why can't I go home." When asked where is home, pt replies "It is where my blanket is, somewhere in [place]." Pt was comforted and reality reinforced. Pt is pleasant and cooperative with care. Pt retired to bed shortly after HS snack. S/I, H/I: Pt denies, none observed. A/VH: Pt denies, none observed. Sleep: Currently sleeping with out PRN. See Sleep Assessment for total hours. ADL's: Independent Group attendance: field map editor, no group. Were meds taken: Takes medication without incident. Any med S/E: None reported or observed Mental Status Exam Appearance: Neat, clean, dressed in own clothes. Eye contact: Good Behavior: Cooperative, calm, friendly Speech: Clear, audible, normal rate/rhythm Mood: Frustrated, sad, tearful. Affect: Blunted Thought process: Linear, circumstantial. Thought Content: "I want to go home." Cognition: Alert & oriented. Insight: Poor Judgment: Poor Interventions PRN's used: None Therapeutic interventions: 1:1 therapeutic assessment, maintained safe therapeutic milieu, provided active listening with positive reinforcement and reassurance, reality orientation as needed, provided medication administration/education/monitoring as needed; Q15 safety checks. Restraints/seclusion/emergency medication: N/A Justification of Continued Inpatient Treatment: Patient is conserved, waiting for left knee to heal before finding placement.
[2019-05-14] MEDS: docusate sod 100mg capsule PO SCH ×2 (07:37→20:28)
[2019-05-14] MEDS: metFORMIN 500mg tablet PO SCH ×2 (07:37→20:29)
[2019-05-14] MEDS: levoTHYROXINE 112mcg tablet PO SCH (07:37)
[2019-05-14] MEDS: ESCITALOPRAM OXALATE 5 MG TABLET PO SCH (07:38)
[2019-05-14 08:09] VITALS: BP 101/60
--- NOTE | 2019-05-14 13:19 | NUR ---
PLACEMENT Called [facility] office for update on placement. Prabha is staying at [facility] until her knee has healed. RITU Carreon
--- NOTE | 2019-05-14 17:31 | NUR ---
Nursing Progress Note Legal hold: [facility] conservatorship Report received from SAYDA [place] with use of SBAR Why are they here: The patient is a 43 year old with Schizoaffective Disorder who was readmitted to [facility] after being transferred to an IMD. Once she arrived at the IMD the staff felt they could not manage her wound care to her left knee and she was transferred back to [facility]. Assessment: What happend this shift? Pt. asleep at start of shift. Pt. took medications and ate breakfast. Pt. got her wound wet when she showered. Dressing changed per directions. Wound has scant purulent drainage. Pt. asks this RN, "Can I go home?" RN reminded pt. of her conservatorship because of dangers living situation prior to hospitalization. Pt. denies SI/HI, A/V hallucinations. In the afternoon pt. asked, "Do you know when I am going home?" RN reminded pt. that social work manager is still looking for placement. Pt. suspicious of RN and asks, "Are you lying to me?". S/I, H/I: Denies A/VH: Denies Sleep: Pt. did not nap during day shift. ADL's: Independent. Pt. showered today. Group attendance: Yes Were meds taken: Takes medication without incident. Any med S/E: Denies Mental Status Exam Appearance: Neat, clean, dressed in own clothes. Eye contact: Good Behavior: Cooperative, anxious, friendly. Speech: Clear, audible, normal rate/rhythm Mood: Frustrated, depressed, anxious. Affect: Flat Thought process: Linear, circumstantial. Thought Content: "When am I going home?" Cognition: Alert & oriented. Insight: Poor Judgment: Poor Interventions PRN's used: None Therapeutic interventions: 1:1 therapeutic assessment, maintained safe therapeutic milieu, provided active listening with positive reinforcement and reassurance, reality orientation as needed, provided medication administration/education/monitoring as needed; Q15 safety checks. Restraints/seclusion/emergency medication: N/A Justification of Continued Inpatient Treatment: Patient is conserved, waiting for left knee to heal before finding placement.
[2019-05-14 20:00] VITALS: BP 114/67
[2019-05-14] MEDS: risperiDONE 2mg tablet PO SCH (20:29)
[2019-05-14] MEDS: ibuprofen 200mg tablet PO PRN (21:17)
--- NOTE | 2019-05-15 00:07 | NUR ---
Nursing Progress Note Legal hold: [facility] conservatorship Report received from DIONNE Tellez with use of SBAR Why are they here: The patient is a 43 year old with Schizoaffective Disorder who was readmitted to [facility] after being transferred to an IMD. Once she arrived at the IMD the staff felt they could not manage her wound care to her left knee and she was transferred back to [facility]. Assessment: What happened this shift Pt pleasant and cooperative. Interacted with staff and peers. Pt is polite and considerate of other pts. Watched TV in Group Room. Pt describes her mood as "good" Drsing to Lft Knee CD+I. S/I, H/I: Denies A/VH: Denies Sleep: Sleeping at this time. ADL's: Independent. Pt. showered today. Group attendance: Yes Were meds taken: Takes medication without incident. Any med S/E: Denies Mental Status Exam Appearance: Neat, clean, dressed in own clothes. Eye contact: Good Behavior: Cooperative, friendly. Speech: Clear, audible, normal rate/rhythm Mood: Pleasant Affect: Flat Thought process: Linear, circumstantial. Thought Content: "When am I going home?" Cognition: Alert & oriented. Insight: Poor Judgment: Poor Interventions PRN's used: None Therapeutic interventions: 1:1 therapeutic assessment, maintained safe therapeutic milieu, provided active listening with positive reinforcement and reassurance, reality orientation as needed, provided medication administration/education/monitoring as needed; Q15 safety checks. Restraints/seclusion/emergency medication: N/A Justification of Continued Inpatient Treatment: Patient is conserved, waiting for left knee to heal before finding placement.
[2019-05-15] MEDS: ESCITALOPRAM OXALATE 5 MG TABLET PO SCH (07:28)
[2019-05-15] MEDS: levoTHYROXINE 112mcg tablet PO SCH (07:29)
[2019-05-15] MEDS: metFORMIN 500mg tablet PO SCH ×2 (07:29→20:09)
[2019-05-15] MEDS: docusate sod 100mg capsule PO SCH ×2 (07:29→20:09)
[2019-05-15 08:35] VITALS: BP 106/65
--- NOTE | 2019-05-15 12:43 | NUR ---
Reassessment: Pt continues to eat well with 75-100% avg on carb controlled diet meeting nutrient needs. Per WOC, pt with stg 4 PU to left knee. Pt with Adam shake last visit for wound healing with PO intake 75-100%, recommend adding Adam shake BIDLD to promote wound healing, d/w RN. LBM 05/13. Will continue to monitor. Rec: 1. continue carb controlled diet 2. Adam shake BIDLD to promote wound healing, d/w RN 3. bowel care as needed 4. wt per rx Addendum: 05/15/19 at 1243 by Wing Maryuri ISAAC Amended: Links added. Addendum: 05/15/19 at [address] [facility] Approves
--- NOTE | 2019-05-15 17:46 | NUR ---
Nursing Progress Note Legal hold: LPS conservatorship Report received from SAYDA Cleveland with use of SBAR Why are they here: The patient is a 43 year old with Schizoaffective Disorder who was readmitted to [facility] after being transferred to an IMD. Once she arrived at the IMD the staff felt they could not manage her wound care to her left knee and she was transferred back to [facility]. Assessment: What happend this shift? Pt. asleep at start of shift. Pt. took medications and ate breakfast. Pt.s wound assessed and changed by wound care nurse. 1:1 done at bedside, pt. states, I want to go home. RN reminded pt. of need for discharge to safe board and care. Pt. states, Cant I just go live with my mom? Pt. showered with wound waterproofed. Pt. denies SI/HI, A/V hallucinations. Pt. reports she is focused on living one day at a time. S/I, H/I: Denies A/VH: Denies Sleep: Pt. did not nap during day shift. ADL's: Independent. Pt. showered today. Group attendance: Yes Were meds taken: Takes medication without incident. Any med S/E: Denies Mental Status Exam Appearance: Neat, clean, dressed in own clothes. Eye contact: Good Behavior: Cooperative, anxious, friendly. Speech: Clear, audible, normal rate/rhythm Mood: Euthymic Affect: Congruent with mood Thought process: Linear, circumstantial Thought Content: Focused on discharge Cognition: Alert & oriented x4 Insight: Poor Judgment: Poor Interventions PRN's used: None Therapeutic interventions: 1:1 therapeutic assessment, maintained safe therapeutic milieu, provided active listening with positive reinforcement and reassurance, reality orientation as needed, provided medication administration/education/monitoring as needed; Q15 safety checks. Restraints/seclusion/emergency medication: N/A Justification of Continued Inpatient Treatment: Patient is conserved, waiting for left knee to heal before finding placement.
[2019-05-15 19:07] VITALS: BP 114/72
[2019-05-15] MEDS ORDERED: lactose-reduced food (Ensure Enlive) - 237ml bottle PO SCH (20:00)
[2019-05-15] MEDS: risperiDONE 2mg tablet PO SCH (20:09)
[2019-05-15] MEDS: JUVEN Smoothie Arginine/Glut./Ca2+Bmb (Juven 19.3pkt) 240ml cup PO SCH (20:38)
--- NOTE | 2019-05-15 21:33 | NUR ---
Nursing Progress Note Legal hold: LPS conservatorship Report received from SAYDA Cleveland with use of SBAR Why are they here: The patient is a 43 year old with Schizoaffective Disorder who was readmitted to [facility] after being transferred to an IMD. Once she arrived at the IMD the staff felt they could not manage her wound care to her left knee and she was transferred back to [facility]. Assessment: What happend this shift? Pt was sitting in a chair at change of shift. Talks about wanting to leave and being tired of being here. Pt spent time with her visitor brice and received some pictures of herself when she was younger in high school and this cheered her up. She hung up the pictures in her room. S/I, H/I: Denies A/VH: Denies Sleep: states she sleeps good at night ADL's: Independent. Pt. showered today. Group attendance: had snacks in group room Were meds taken: yes Any med S/E: Denies Mental Status Exam Appearance: Neat, clean, dressed in own clothes. Eye contact: Good Behavior: Cooperative, anxious, friendly. Speech: Clear, audible, normal rate/rhythm Mood: Euthymic Affect: Congruent with mood Thought process: Linear, circumstantial Thought Content: wants to be discharged Cognition: Alert & oriented x4 Insight: Poor Judgment: Poor Interventions PRN's used: None Therapeutic interventions: 1:1 therapeutic assessment, maintained safe therapeutic milieu, provided active listening with positive reinforcement and reassurance, reality orientation as needed, provided medication administration/education/monitoring as needed; Q15 safety checks. Restraints/seclusion/emergency medication: N/A Justification of Continued Inpatient Treatment: Patient is conserved, waiting for left knee to heal before finding placement.
[2019-05-16] MEDS: levoTHYROXINE 112mcg tablet PO SCH (07:37)
[2019-05-16] MEDS: metFORMIN 500mg tablet PO SCH ×2 (07:37→19:25)
[2019-05-16] MEDS: docusate sod 100mg capsule PO SCH ×2 (07:37→19:25)
[2019-05-16] MEDS: ESCITALOPRAM OXALATE 5 MG TABLET PO SCH (07:38)
[2019-05-16 07:56] VITALS: BP 101/53
[2019-05-16] MEDS: JUVEN Smoothie Arginine/Glut./Ca2+Bmb (Juven 19.3pkt) 240ml cup PO SCH ×2 (08:26→20:29)
[2019-05-16] MEDS: ibuprofen 200mg tablet PO PRN (10:20)
[2019-05-16] MEDS: magnesium hydroxide 30ml (MOM) UD suspension PO PRN (13:45)
--- NOTE | 2019-05-16 17:44 | NUR ---
Nursing Progress Note Legal hold: LPS conservatorship Report received from SAYDA Mott with use of SBAR Why are they here: The patient is a 43 year old with Schizoaffective Disorder who was readmitted to [facility] after being transferred to an IMD. Once she arrived at the IMD the staff felt they could not manage her wound care to her left knee and she was transferred back to [facility]. Assessment: What happend this shift? Pt. asleep at start of shift. Pt. took medications and ate breakfast. Pt.s knee wound assessed and dressing change, see meditech documentation. 1:1 done at bedside, pt. again focused on discharge, asking about when and where she will go. RN discussed plans with pt. RN reminded pt. of need for discharge to safe board and care. Pt. denies SI/HI, A/V hallucinations. [facility] with other patients and staff appropriately. S/I, H/I: Denies A/VH: Denies Sleep: Pt. did not nap during day shift. ADL's: Independent. Pt. showered today. Group attendance: Yes Were meds taken: Yes Any med S/E: Denies Mental Status Exam Appearance: Neat, clean, dressed in her own clothes. Eye contact: Good Behavior: Cooperative, anxious, friendly. Speech: Clear, audible, normal rate/rhythm Mood: Euthymic Affect: Congruent with mood Thought process: Linear, circumstantial Thought Content: Focused on discharge Cognition: Alert & oriented x4 Insight: Poor Judgment: Poor Interventions PRN's used: None Therapeutic interventions: 1:1 therapeutic assessment, maintained safe therapeutic milieu, provided active listening with positive reinforcement and reassurance, reality orientation as needed, provided medication administration/education/monitoring as needed; Q15 safety checks. Restraints/seclusion/emergency medication: N/A Justification of Continued Inpatient Treatment: Patient is conserved, waiting for left knee to heal before finding placement.
[2019-05-16] MEDS: LORazepam 0.5 MG tablet PO PRN (19:25)
[2019-05-16 19:52] VITALS: BP 109/73
[2019-05-16] MEDS: risperiDONE 2mg tablet PO SCH (20:30)
--- NOTE | 2019-05-16 20:51 | NUR ---
Nursing Progress Note Legal hold: LPS conservatorship Report received from SAYDA Mott with use of SBAR Why are they here: The patient is a 43 year old with Schizoaffective Disorder who was readmitted to [facility] after being transferred to an IMD. Once she arrived at the IMD the staff felt they could not manage her wound care to her left knee and she was transferred back to [facility]. Assessment: What happend this shift? Pt was in the hallway at change of shift. Pt is tearful and states she wants to go home, she is tired of being here. Pt reports feeling anxious discussed coping skills w/patient and she wrung her hands stating "I cant do all that little stuff! Im beyond!" pt was given prn with good effect, she spent evening socializing with others but went to bed a little earlier than usual. She remains somewhat depressed and focused on discharge this evening. S/I, H/I: Denies A/VH: Denies Sleep: reports sleeping well at night ADL's: Independent. Group attendance: no evening group Were meds taken: Yes Any med S/E: Denies Mental Status Exam Appearance: Neat, clean, dressed in her own clothes. Eye contact: Good Behavior: Cooperative, anxious Speech: Clear, audible, normal rate/rhythm Mood: depressed Affect: blunted Thought process: Linear, circumstantial Thought Content: Focused on discharge Cognition: Alert & oriented x4 Insight: Poor Judgment: Poor Interventions PRN's used: None Therapeutic interventions: 1:1 therapeutic assessment, maintained safe therapeutic milieu, provided active listening with positive reinforcement and reassurance, reality orientation as needed, provided medication administration/education/monitoring as needed; Q15 safety checks. Restraints/seclusion/emergency medication: N/A Justification of Continued Inpatient Treatment: Patient is conserved, waiting for left knee to heal before finding placement.
[2019-05-17] MEDS: docusate sod 100mg capsule PO SCH ×2 (07:33→20:14)
[2019-05-17] MEDS: JUVEN Smoothie Arginine/Glut./Ca2+Bmb (Juven 19.3pkt) 240ml cup PO SCH ×3 (07:34→20:00)
[2019-05-17] MEDS: metFORMIN 500mg tablet PO SCH ×2 (07:34→20:13)
[2019-05-17] MEDS: levoTHYROXINE 112mcg tablet PO SCH (07:34)
[2019-05-17] MEDS: ESCITALOPRAM OXALATE 5 MG TABLET PO SCH (07:34)
[2019-05-17 08:00] VITALS: BP 87/50
[2019-05-17] MEDS: magnesium hydroxide 30ml (MOM) UD suspension PO PRN ×2 (08:19→20:13)
[2019-05-17] MEDS: HYDROcodone/acetaminophen 10/325mg tab PO PRN (10:00)
--- NOTE | 2019-05-17 15:37 | NUR ---
NURSING PROGRESS NOTE Legal hold: [facility] conservatorship Report received from SAYDA Mott with use of SBAR Why are they here: The patient is a 43 year old with Schizoaffective Disorder who was readmitted to [facility] after being transferred to an IMD. Once she arrived at the IMD the staff felt they could not manage her wound care to her left knee and she was transferred back to [facility]. Assessment: What has happened this shift: Up early and talking with peers, eating well and medication compliant. Sad mood today not really smiling. Reports sadness over circumstances and waiting for a place to live. Left knee wound dressing change by wound care nurse. Wound nurse reports wound is not healing well. Patient c/o pain to wound and asked for [place] which was provided with good effect. Attended afternoon group and went out on the patio with others. Denies SI, HI, AH, VH, and made no delusional statements. S/I, H/I: Denies A/VH: Denies Sleep: No ADL's: Self, showered Group attendance: Yes Were meds taken: Yes Any med S/E: Denies Mental Status Exam Appearance: Neat and clean Eye contact: Good Behavior: Cooperative Speech: Clear, soft Mood: Sad Affect: Blunted Thought process: circumstantial Thought Content: Focused on discharge Cognition: Alert Insight: Poor Judgment: Fair Interventions: PRN's used: [place] x1, MOM Therapeutic interventions: 1:1 therapeutic assessment, maintained safe therapeutic milieu, provided active listening with positive reinforcement and reassurance, reality orientation as needed, provided medication administration/education/monitoring as needed; Q15 safety checks. Restraints/seclusion/emergency medication: N/A Justification of Continued Inpatient Treatment: Patient is conserved, waiting for left knee to heal before finding placement.
[2019-05-17 19:35] VITALS: BP 101/65
[2019-05-17] MEDS: risperiDONE 2mg tablet PO SCH (20:14)
--- NOTE | 2019-05-18 04:23 | NUR ---
Nursing Progress Note Legal hold: [facility] conservatorship Report received from SAYDA Guzman with use of SBAR Why are they here: The patient is a 43 year old with Schizoaffective Disorder who was readmitted to [facility] after being transferred to an IMD. Once she arrived at the IMD the staff felt they could not manage her wound care to her left knee and she was transferred back to [facility]. Assessment What has happened this shift: Patient pacing the kay at the beginning of shift. Patient shortly after c/o knee pain and patient was settled in community room watching TV and leg elevated. During q15 PCT was unable to locate patient and reported to nurse. Nursing staff began double checking the unit and the patient came out of a male patient's room. When this editorial writer stated she is not allowed to be in other bedrooms other than her own patient denied knowledge unit rule. Patient agreed to not go into other rooms. No further incidents this shift. Patient compliant with all medication. Provided PRN MOM per patient request r/t continuing constipation; no results at this time. Wound dressing to L leg CDI. S/I, H/I: Denies A/VH: Denies Sleep: Refer to sleep assessment ADL's: Independent Group attendance: No groups this shift Were meds taken: Yes Any med S/E: None reported or observed Mental Status Exam Appearance: Neat, clean, dressed in own clothes. Eye contact: Good Behavior: Active on the unit Speech: Clear, audible, normal rate/rhythm Mood: Bored Affect: Blunted Thought process: Linear. Thought Content: Wants to leave the unit Cognition: Alert & oriented. Insight: Poor Judgment: Poor Interventions PRN's used: None Therapeutic interventions: 1:1 therapeutic assessment, maintained safe therapeutic milieu, provided active listening with positive reinforcement and reassurance, reality orientation as needed, provided medication administration/education/monitoring as needed; Q15 safety checks. Restraints/seclusion/emergency medication: N/A Justification of Continued Inpatient Treatment: Patient is conserved, waiting for left knee to heal before finding placement.
[2019-05-18] MEDS: levoTHYROXINE 112mcg tablet PO SCH (07:44)
[2019-05-18] MEDS: JUVEN Smoothie Arginine/Glut./Ca2+Bmb (Juven 19.3pkt) 240ml cup PO SCH ×2 (07:44→20:00)
[2019-05-18] MEDS: ESCITALOPRAM OXALATE 5 MG TABLET PO SCH (07:44)
[2019-05-18] MEDS: metFORMIN 500mg tablet PO SCH ×2 (07:44→21:34)
[2019-05-18] MEDS: docusate sod 100mg capsule PO SCH ×2 (07:44→21:34)
[2019-05-18 08:00] VITALS: BP 102/65
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
[2019-05-18 19:00] VITALS: BP 106/67
[2019-05-18] MEDS: risperiDONE 2mg tablet PO SCH (21:36)
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
[2019-05-19] MEDS: JUVEN Smoothie Arginine/Glut./Ca2+Bmb (Juven 19.3pkt) 240ml cup PO SCH ×2 (07:52→20:00)
[2019-05-19] MEDS: levoTHYROXINE 112mcg tablet PO SCH (07:52)
[2019-05-19] MEDS: metFORMIN 500mg tablet PO SCH ×2 (07:52→20:28)
[2019-05-19] MEDS: ESCITALOPRAM OXALATE 5 MG TABLET PO SCH (07:52)
[2019-05-19] MEDS: docusate sod 100mg capsule PO SCH ×2 (07:52→20:28)
[2019-05-19 07:59] VITALS: BP 101/55
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
[2019-05-19] MEDS: acetaminophen 325mg tablet PO PRN (16:23)
[2019-05-19 19:14] VITALS: BP 112/61
[2019-05-19] MEDS: LORazepam 0.5 MG tablet PO PRN (20:28)
[2019-05-19] MEDS: risperiDONE 2mg tablet PO SCH (20:28)
--- NOTE | 2019-05-20 04:13 | NUR ---
Nursing Progress Note Legal hold: [facility] conservatorship Report received from SAYDA Avelar with use of SBAR Why are they here: The patient is a 43 year old with Schizoaffective Disorder who was readmitted to [facility] after being transferred to an IMD. Once she arrived at the IMD the staff felt they could not manage her wound care to her left knee and she was transferred back to [facility]. Assessment What has happened this shift: Patient watching TV in the group room at the beginning of shift. Pleasant and cooperative with all care; compliant with medications. PRN Ativan provided for anxiety per request. Patient explained anxiety r/t "I know you guys are going to send me somewhere." Patient elaborated and explained she doesn't want to be placed into another facility. Patient denies SI, HI, A/VH this shift. Patient wound dressing CDI and not changed this shift. S/I, H/I: Denies A/VH: Denies Sleep: Refer to sleep assessment ADL's: Independent Group attendance: No groups this shift Were meds taken: Yes Any med S/E: None reported or observed Mental Status Exam Appearance: Neat, clean, dressed in own clothes. Eye contact: Good Behavior: Watching TV and socializing with peers Speech: Clear, audible, normal rate/rhythm Mood: "Sad" Affect: Depressed Thought process: Linear. Thought Content: Wants to go "home" and not to another facility Cognition: Alert & oriented. Insight: Poor Judgment: Poor Interventions PRN's used: Ativan Therapeutic interventions: 1:1 therapeutic assessment, maintained safe therapeutic milieu, provided active listening with positive reinforcement and reassurance, reality orientation as needed, provided medication administration/education/monitoring as needed; Q15 safety checks. Restraints/seclusion/emergency medication: N/A Justification of Continued Inpatient Treatment: Patient is conserved, waiting for left knee to heal before finding placement.
[2019-05-20 07:16] VITALS: BP 113/62
[2019-05-20] MEDS: JUVEN Smoothie Arginine/Glut./Ca2+Bmb (Juven 19.3pkt) 240ml cup PO SCH ×2 (08:00→20:36)
[2019-05-20] MEDS: ESCITALOPRAM OXALATE 5 MG TABLET PO SCH (09:08)
[2019-05-20] MEDS: metFORMIN 500mg tablet PO SCH ×2 (09:08→20:27)
[2019-05-20] MEDS: docusate sod 100mg capsule PO SCH ×2 (09:08→20:26)
[2019-05-20] MEDS: levoTHYROXINE 112mcg tablet PO SCH (09:32)
--- NOTE | 2019-05-20 13:51 | NUR ---
Reassessment: Pt PO 75-100% carb controlled meals w/ Adam shakes meeting healing needs given stage 4 L knee PU. LBM 05/19. Will continue to monitor. Rec: 1. continue carb controlled diet 2. Adam shake BIDLD to promote wound healing 3. bowel care as needed 4. wt per rx Addendum: 05/20/19 at [address] Amended: Links added.
[2019-05-20] MEDS: HYDROcodone/acetaminophen 10/325mg tab PO PRN (16:05)
--- NOTE | 2019-05-20 17:08 | NUR ---
Nursing Progress Note Legal hold: [facility] conservatorship Report received from SAYDA Moore with use of SBAR Why are they here: The patient is a 43 year old with Schizoaffective Disorder who was readmitted to [facility] after being transferred to an IMD. Once she arrived at the IMD the staff felt they could not manage her wound care to her left knee and she was transferred back to [facility]. Assessment What has happened this shift: Pt is in bed sleeping at start of shift. She went to group, took a shower and took her medications. Pt talked about how she wants to go to her own home and "I'm so tired of being here." She spent time in her room cleaning and rearranging her belongings. Pt appears depressed and tired today. S/I, H/I: Denies A/VH: Denies Sleep: Rested on her bed briefly ADL's: Independent Group attendance: Yes; a movie Were meds taken: Yes Any med S/E: None reported or observed Mental Status Exam Appearance: Clean; showered wearing her own clothes Eye contact: Good Behavior: Watching TV and socializing with peers Speech: Clear, audible, normal rate/rhythm Mood: Depressed Affect: flat Thought process: Linear. Thought Content: Wants to go "home" Cognition: A/Ox4 Insight: Fair Judgment: Poor Interventions PRN's used: [place] for pain after drsg change Therapeutic interventions: 1:1 therapeutic assessment, provided medication administration/education/monitoring as needed, encouraged group attendance, Q15 safety checks. Restraints/seclusion/emergency medication: N/A Justification of Continued Inpatient Treatment: Patient is conserved, waiting for left knee to heal before finding placement.
[2019-05-20 20:00] VITALS: BP 110/72
[2019-05-20] MEDS: risperiDONE 2mg tablet PO SCH (20:28)
--- NOTE | 2019-05-20 20:59 | NUR ---
Nursing Progress Note Legal hold: LPS conservatorship Report received from SAYDA Moore with use of SBAR Why are they here: The patient is a 43 year old with Schizoaffective Disorder who was readmitted to [facility] after being transferred to an IMD. Once she arrived at the IMD the staff felt they could not manage her wound care to her left knee and she was transferred back to [facility]. Assessment What has happened this shift: Pt is up and social at start of shift. Pt talked on phone for awhile with her Mom. Pt talked about how she wants to go to her own home and "I'm so tired of being here." She spent time in her room cleaning and rearranging her belongings. Pt appears depressed and tired today. S/I, H/I: Denies A/VH: Denies Sleep: Rested on her bed briefly ADL's: Independent Group attendance: Yes; a movie Were meds taken: Yes Any med S/E: None reported or observed Mental Status Exam Appearance: Clean; showered wearing her own clothes Eye contact: Good Behavior: Watching TV and socializing with peers Speech: Clear, audible, normal rate/rhythm Mood: Depressed Affect: flat Thought process: Linear. Thought Content: Wants to go "home" Cognition: A/Ox4 Insight: Fair Judgment: Poor Interventions PRN's used: N Therapeutic interventions: 1:1 therapeutic assessment, provided medication administration/education/monitoring as needed, encouraged group attendance, Q15 safety checks. Restraints/seclusion/emergency medication: N/A Justification of Continued Inpatient Treatment: Patient is conserved, waiting for left knee to heal before finding placement.
[2019-05-21 08:00] VITALS: BP 98/66
[2019-05-21] MEDS: JUVEN Smoothie Arginine/Glut./Ca2+Bmb (Juven 19.3pkt) 240ml cup PO SCH ×2 (08:00→20:21)
[2019-05-21] MEDS: metFORMIN 500mg tablet PO SCH ×2 (08:45→20:19)
[2019-05-21] MEDS: docusate sod 100mg capsule PO SCH ×2 (08:45→20:20)
[2019-05-21] MEDS: ESCITALOPRAM OXALATE 5 MG TABLET PO SCH (08:47)
[2019-05-21] MEDS: levoTHYROXINE 112mcg tablet PO SCH (10:10)
--- NOTE | 2019-05-21 14:07 | NUR ---
PLACEMENT Faxed packet to [facility] office for placement purposes. RITU Carreon
--- NOTE | 2019-05-21 14:10 | NUR ---
Nursing Progress Note Legal hold: LPS conservatorship Report received from SAYDA Deshpande with use of SBAR Why are they here: The patient is a 43 year old with Schizoaffective Disorder who was readmitted to [facility] after being transferred to an IMD. Once she arrived at the IMD the staff felt they could not manage her wound care to her left knee and she was transferred back to [facility]. Assessment What has happened this shift: Pt is in bed sleeping at start of shift. Kaylin, public joby, came in to see her looked at her knee was given a recent picture of the knee and she also was given a copy of the MRSA results from 05/03/19. She spoke to Prabha and told her they were looking at a B&C in [place] for her to go. Pt up and happy and looks forward to leaving [facility]. S/I, H/I: Denies A/VH: Denies Sleep: Occasionally will rest on her bd rarely sleeping ADL's: Independent Group attendance: Yes Were meds taken: Yes Any med S/E: None reported or observed Mental Status Exam Appearance: Clean; showered wearing her own clothes Eye contact: Good Behavior: Socializing with staff and peers Speech: Clear, audible, normal rate/rhythm Mood: Euthymic Affect: Smiling Thought process: Happy over the news of a B&C not IMD Thought Content: She just wants to leave here Cognition: A/Ox4 Insight: Fair Judgment: Poor Interventions PRN's used: N/A Therapeutic interventions: 1:1 therapeutic assessment, drsg change, provided picture of wound to PG as requested, provided medication administration/education/monitoring as needed, encouraged group attendance, Q15 safety checks. Restraints/seclusion/emergency medication: N/A Justification of Continued Inpatient Treatment: Patient is conserved, waiting for left knee to heal before finding placement.
[2019-05-21] MEDS: risperiDONE 2mg tablet PO SCH (20:20)
[2019-05-21 20:38] VITALS: BP 120/65
--- NOTE | 2019-05-21 21:47 | NUR ---
Nursing Progress Note Legal hold: LPS conservatorship Report received from SAYDA Avelar with use of SBAR Why are they here: The patient is a 43 year old with Schizoaffective Disorder who was readmitted to [facility] after being transferred to an IMD. Once she arrived at the IMD the staff felt they could not manage her wound care to her left knee and she was transferred back to [facility]. Assessment What has happened this shift: Pt is up in kay at start of shift. Pt stated that she is happy at the possibility of being placed in a board and care. Pt up and happy and looks forward to leaving [facility]. Pt continues to be compliant with no outburst noted. S/I, H/I: Denies A/VH: Denies Sleep: Occasionally will rest on her bd rarely sleeping ADL's: Independent Group attendance: Yes Were meds taken: Yes Any med S/E: None reported or observed Mental Status Exam Appearance: Clean; showered wearing her own clothes Eye contact: Good Behavior: Socializing with staff and peers Speech: Clear, audible, normal rate/rhythm Mood: Euthymic Affect: Smiling Thought process: Happy over the news of a B&C not IMD Thought Content: She just wants to leave here Cognition: A/Ox4 Insight: Fair Judgment: Poor Interventions PRN's used: N/A Therapeutic interventions: 1:1 therapeutic assessment, drsg change, provided picture of wound to PG as requested, provided medication administration/education/monitoring as needed, encouraged group attendance, Q15 safety checks. Restraints/seclusion/emergency medication: N/A Justification of Continued Inpatient Treatment: Patient is conserved, waiting for left knee to heal before finding placement.
[2019-05-22] MEDS: ESCITALOPRAM OXALATE 5 MG TABLET PO SCH (07:56)
[2019-05-22] MEDS: metFORMIN 500mg tablet PO SCH ×2 (07:56→20:18)
[2019-05-22] MEDS: docusate sod 100mg capsule PO SCH ×2 (07:57→20:17)
[2019-05-22] MEDS: levoTHYROXINE 112mcg tablet PO SCH (07:57)
[2019-05-22 08:00] VITALS: BP 100/53
[2019-05-22] MEDS: JUVEN Smoothie Arginine/Glut./Ca2+Bmb (Juven 19.3pkt) 240ml cup PO SCH ×2 (08:00→20:19)
--- NOTE | 2019-05-22 15:24 | NUR ---
Nursing Progress Note: Prabha Legal hold: LPS conservatorship Report received from DIONNE Mott with use of SBAR Why are they here: The patient is a 43 year old with Schizoaffective Disorder who was readmitted to [facility] after being transferred to an IMD. Once she arrived at the IMD the staff felt they could not manage her wound care to her left knee and she was transferred back to [facility]. Assessment What has happened this shift: Patient observed in community room having her morning coffee, greats staff positively however, mentions how she would love to leave. Reminded patient of conversation she had the previous day with conservator about possible placement at board and care. Wound evaluated by wound care nurse, there is concern that it will not completely heal without some type of surgical intervention due to the exposed bone. Plans to discuss concern with Dr. Mcmillan. Patient attended morning group in her [facility], when asked why she states she has been reading a really good book. Attended and participated in group. S/I, H/I: I am depressed about being here, but definitely not suicidal A/VH: doesnt recall ever experiencing this Sleep: 7.5 ADL's: Independent, no shower today due to wound care changing dressing Group attendance: Yes with participation Were meds taken: always Any med S/E: none observed or reported Mental Status Exam Appearance: Clean; hair pulled into a pony tail. Wearing PJs Eye contact: Good Behavior: appropriate, supportive, and considerate of others Speech: Clear, normal rate, rhythm, does sound like she should clear her throat Mood: depressed related to not having a home, remains upbeat when distracted Affect: congruent with mood Thought process: circumstantial, easily forgets recent conversations Thought Content: Wanting to leave and have her own apartment Cognition: A/Ox4 Insight: Fair Judgment: Poor, impulsive Interventions PRN's used: N/A Therapeutic interventions: 1:1 therapeutic assessment, drsg change, provided picture of wound to PG as requested, provided medication administration/education/monitoring as needed, encouraged group attendance, Q15 safety checks. Restraints/seclusion/emergency medication: N/A Justification of Continued Inpatient Treatment: Patient is conserved, waiting for left knee to heal before finding placement.
[2019-05-22 20:00] VITALS: BP 102/78
[2019-05-22] MEDS: risperiDONE 2mg tablet PO SCH (20:18)
--- NOTE | 2019-05-22 21:20 | NUR ---
Nursing Progress Note: Prabha Legal hold: LPS conservatorship Report received from DIONNE Avelar with use of SBAR Why are they here: The patient is a 43 year old with Schizoaffective Disorder who was readmitted to [facility] after being transferred to an IMD. Once she arrived at the IMD the staff felt they could not manage her wound care to her left knee and she was transferred back to [facility]. Assessment What has happened this shift: Patient observed in community playing cards with peers. Wound evaluated by wound care nurse, there is concern that it will not completely heal without some type of surgical intervention due to the exposed bone. Plans to discuss concern with Dr. Mcmillan. Pt cheerful and cooperative with staff. S/I, H/I: I am depressed about being here, but definitely not suicidal A/VH: doesnt recall ever experiencing this Sleep: 7.5 ADL's: Independent, no shower today due to wound care changing dressing Group attendance: Yes with participation Were meds taken: always Any med S/E: none observed or reported Mental Status Exam Appearance: Clean; hair pulled into a pony tail. Wearing PJs Eye contact: Good Behavior: appropriate, supportive, and considerate of others Speech: Clear, normal rate, rhythm, does sound like she should clear her throat Mood: depressed related to not having a home, remains upbeat when distracted Affect: congruent with mood Thought process: circumstantial, easily forgets recent conversations Thought Content: Wanting to leave and have her own apartment Cognition: A/Ox4 Insight: Fair Judgment: Poor, impulsive Interventions PRN's used: N/A Therapeutic interventions: 1:1 therapeutic assessment, drsg change, provided picture of wound to PG as requested, provided medication administration/education/monitoring as needed, encouraged group attendance, Q15 safety checks. Restraints/seclusion/emergency medication: N/A Justification of Continued Inpatient Treatment: Patient is conserved, waiting for left knee to heal before finding placement.
[2019-05-23 07:09] VITALS: BP 130/71
[2019-05-23] MEDS: docusate sod 100mg capsule PO SCH ×2 (07:27→20:22)
[2019-05-23] MEDS: JUVEN Smoothie Arginine/Glut./Ca2+Bmb (Juven 19.3pkt) 240ml cup PO SCH ×2 (07:27→20:00)
[2019-05-23] MEDS: ESCITALOPRAM OXALATE 5 MG TABLET PO SCH (07:27)
[2019-05-23] MEDS: metFORMIN 500mg tablet PO SCH ×2 (07:27→20:23)
[2019-05-23] MEDS: levoTHYROXINE 112mcg tablet PO SCH (07:27)
--- NOTE | 2019-05-23 08:05 | NUR ---
Placement Presenting Issues: Pt's LPS conserved, has slow-healing wound on knee, needs placement services. Interventions: SS had t/c with [facility] office to f/u on pt's placement services, per t/c Lonny Spaulding is in the process of reconsidering pt's referral for placement. [facility] will contact their Admissions Echocardiograph Tech next week to advocate for pt. Plan: will continue to engage [facility] in dcp/placement activities. Clementine Duffy LCSW Addendum: 05/23/19 at 0812 by Clementine Duffy Amended: Links added.
--- NOTE | 2019-05-23 15:28 | NUR ---
NURSING PROGRESS NOTE Legal hold: LPS conservatorship Report received from DIONNE Mott with use of SBAR Why are they here: The patient is a 43 year old with Schizoaffective Disorder who was readmitted to [facility] after being transferred to an IMD. Once she arrived at the IMD the staff felt they could not manage her wound care to her left knee and she was transferred back to [facility]. Assessment What has happened this shift: Up early to coffee with others. Medication compliant. Performs ADL's by self, showered today. Healing would to left knee, wound dressing change performed. Patient ambulates without difficulty. Active and up to meals and groups on unit. Cooperative and polite. Looking forward to discharge so "I have a home." S/I, H/I: Denies A/VH: Denies Sleep: None ADL's: Independent Group attendance: Yes Were meds taken: yes Any med S/E: none Mental Status Exam Appearance: Neat and clean Eye contact: Good Behavior: appropriate, supportive, and considerate of others Speech: Clear Mood: sad at times, would like to have a home Affect: smiling Thought process: circumstantial Thought Content: Longing for a home Cognition: Alert Insight: Fair Judgment: Poor Interventions PRN's used: N/A Therapeutic interventions: 1:1 therapeutic assessment, drsg change, provided picture of wound to PG as requested, provided medication administration/education/monitoring as needed, encouraged group attendance, Q15 safety checks. Restraints/seclusion/emergency medication: N/A Justification of Continued Inpatient Treatment: Patient is conserved, waiting for left knee to heal before finding placement.
[2019-05-23] MEDS: risperiDONE 2mg tablet PO SCH (20:23)
[2019-05-23] MEDS ORDERED: magnesium hydroxide 30ml (MOM) UD suspension PO ONE (20:25)
[2019-05-23 20:40] VITALS: BP 102/75
--- NOTE | 2019-05-24 03:29 | NUR ---
Nursing Progress Note: Legal hold: LPS Report received from DIONNE Robbins with use of SBAR Why are they here: The patient is a 43 year old with Schizoaffective Disorder who was readmitted to [facility] after being transferred to an IMD. Once she arrived at the IMD the staff felt they could not manage her wound care to her left knee and she was transferred back to [facility]. Assessment What has happened this shift: Pt walking the halls for exercise and "having an okay day". Watched some TV and interacted with peers. States she is bored and looking forward to discharge. Pt states she is constipated but wants to take MOM in the morning. Pt pleasant and compliant with care, retired to bed after Hs medication pass. S/I, H/I: Denies A/VH: Denies Sleep: See Sleep Assessment ADL's: Independent Group attendance: N/A Were meds taken: Yes Any med S/E: none observed nor reported Mental Status Exam Appearance: Clean; hair brushed and down, changed from street clothes to pajamas Eye contact: Good Behavior: Cooperative, engaging with peers, walking halls for exercise Speech: Clear, normal rate, rhythm Mood: Bored but pleasant, "Okay" Affect: Blunted witch occasional brightening Thought process: Linear Thought Content: wanting to leave, keeping occupied Cognition: A/Ox4 Insight: Fair Judgment: Poor, impulsive Interventions PRN's used: N/A Therapeutic interventions: 1:1 therapeutic assessment, drsg change, provided picture of wound to PG as requested, provided medication administration/education/monitoring as needed, encouraged group attendance, Q15 safety checks. Restraints/seclusion/emergency medication: N/A Justification of Continued Inpatient Treatment: Patient is conserved, waiting for left knee to heal before finding placement.
[2019-05-24 07:10] VITALS: BP 107/50
[2019-05-24] MEDS: JUVEN Smoothie Arginine/Glut./Ca2+Bmb (Juven 19.3pkt) 240ml cup PO SCH ×2 (07:34→20:00)
[2019-05-24] MEDS: metFORMIN 500mg tablet PO SCH ×2 (07:34→20:14)
[2019-05-24] MEDS: ESCITALOPRAM OXALATE 5 MG TABLET PO SCH (07:34)
[2019-05-24] MEDS: docusate sod 100mg capsule PO SCH ×2 (07:34→20:14)
[2019-05-24] MEDS: levoTHYROXINE 112mcg tablet PO SCH (07:34)
[2019-05-24] MEDS: magnesium hydroxide 30ml (MOM) UD suspension PO PRN ×2 (07:39→20:23)
[2019-05-24 08:12] LABS: URINE HCG NEGATIVE (NEG)
[2019-05-24 08:37] VITALS: BP 107/50
--- NOTE | 2019-05-24 10:52 | NUR ---
Faxed requested paperwork to [facility] office: new face sheet, ADL info, wound assessment, and negative HcG. RITU Carreon
--- NOTE | 2019-05-24 13:42 | NUR ---
Reassessment: Pt PO 75-100% avg meals w/ Adam shake BIDLD meeting needs. LBM 05/20 receiving routine colace and pt refused MoM yesterday per EMR. No nutrition concerns at this time. Will continue to monitor. Rec: 1. continue carb controlled diet 2. Adam shake BIDLD to promote wound healing 3. bowel care as needed 4. wt per rx Addendum: 05/24/19 at [address] Amended: Links added.
--- NOTE | 2019-05-24 13:45 | NUR ---
NURSING PROGRESS NOTE Legal hold: LPS conservatorship Report received from DIONNE Mott with use of SBAR Why are they here: The patient is a 43 year old with Schizoaffective Disorder who was readmitted to [facility] after being transferred to an IMD. Once she arrived at the IMD the staff felt they could not manage her wound care to her left knee and she was transferred back to [facility]. Assessment What has happened this shift: Up early to coffee with others. Medication compliant. Performs ADL's by self, showered today. Healing would to left knee, wound dressing change performed. Patient ambulates without difficulty. Active and up to meals and groups on unit. Cooperative and polite. States, "today I'm kind of sad" and "I don't know why it's taking so long to get a place." S/I, H/I: Denies A/VH: Denies Sleep: None ADL's: Independent Group attendance: Yes Were meds taken: yes Any med S/E: none Mental Status Exam Appearance: Neat and clean Eye contact: Good Behavior: appropriate Speech: Clear Mood: sad at times Affect: smiling Thought process: circumstantial Thought Content: wants to discharge to a home Cognition: Alert Insight: Fair Judgment: Poor Interventions PRN's used: N/A Therapeutic interventions: 1:1 therapeutic assessment, drsg change, provided picture of wound to PG as requested, provided medication administration/education/monitoring as needed, encouraged group attendance, Q15 safety checks. Restraints/seclusion/emergency medication: N/A Justification of Continued Inpatient Treatment: Patient is conserved, waiting for left knee to heal before finding placement.
[2019-05-24 20:08] VITALS: BP 123/76
[2019-05-24] MEDS: risperiDONE 2mg tablet PO SCH (20:14)
--- NOTE | 2019-05-25 01:31 | NUR ---
Nursing Progress Note: Legal hold: LPS Report received from DIONNE Tellez with use of SBAR Why are they here: The patient is a 43 year old with Schizoaffective Disorder who was readmitted to [facility] after being transferred to an IMD. Once she arrived at the IMD the staff felt they could not manage her wound care to her left knee and she was transferred back to [facility]. Assessment What has happened this shift: Pt remains listless and bored, stating "I can't wait to get out of here." Pt was also upset that her mother had not called in a few days, RN encouraged pt to call instead of waiting; pt observed to be talking to her mother later in the shift. Pt had demonstrated how to open an emergency exit during day shift, and this evening was reviewing the fire escape map with a couple of pts. Pt denied trying to plan how to leave when this RN inquired, and continued that she just wants her knee to heal fast so she can be placed. Pt shared family photos with this RN, sharing a few stories from her experiencing in high school and college. Pt observed to be reading in room. "I have to keep busy somehow." Pt's knee bandage is CDI and no c/o pain. Pt complaint with HS medication pass and retired to bed soon after administration. S/I, H/I: Denies A/VH: Denies Sleep: See Sleep Assessment ADL's: Independent Group attendance: N/A Were meds taken: Yes Any med S/E: none observed nor reported Mental Status Exam Appearance: Clean; hair brushed and down, changed from street clothes to pajamas Eye contact: Good Behavior: Cooperative, engaging with peers, walking halls for exercise, watching tv, reading Speech: Clear, normal rate, rhythm Mood: Bored but pleasant, "Okay" Affect: Blunted witch occasional brightening Thought process: Linear Thought Content: wanting to leave, keeping occupied Cognition: A/Ox4 Insight: Fair Judgment: Poor, impulsive Interventions PRN's used: MOM as pt remains constipated Therapeutic interventions: 1:1 therapeutic assessment, drsg change, provided picture of wound to PG as requested, provided medication administration/education/monitoring as needed, encouraged group attendance, Q15 safety checks. Restraints/seclusion/emergency medication: N/A Justification of Continued Inpatient Treatment: Patient is conserved, waiting for left knee to heal before finding placement.
[2019-05-25] MEDS: docusate sod 100mg capsule PO SCH ×2 (07:26→21:08)
[2019-05-25] MEDS: ESCITALOPRAM OXALATE 5 MG TABLET PO SCH (07:26)
[2019-05-25] MEDS: metFORMIN 500mg tablet PO SCH ×2 (07:26→21:08)
[2019-05-25] MEDS: levoTHYROXINE 112mcg tablet PO SCH (07:26)
[2019-05-25 07:30] VITALS: BP 97/66
[2019-05-25] MEDS: JUVEN Smoothie Arginine/Glut./Ca2+Bmb (Juven 19.3pkt) 240ml cup PO SCH ×2 (08:00→20:00)
--- NOTE | 2019-05-25 11:26 | NUR ---
PLACEMENT [facility] office reported Prabha's packet is currently at [place], [facility], and [facility]. RITU Carreon
--- NOTE | 2019-05-25 17:48 | NUR ---
Nursing Progress Note: Legal hold: LPS Report received from SAYDA Bermudez with use of SBAR Why are they here: The patient is a 43 year old with Schizoaffective Disorder who was readmitted to [facility] after being transferred to an IMD. Once she arrived at the IMD the staff felt they could not manage her wound care to her left knee and she was transferred back to [facility]. Assessment What has happened this shift: Pt. asleep at start of shift. Pt. ate all meals in community room and took all medications. 1:1 done at bedside. Pt.s left knee bandage changed. Pt. reports feeling bored and wanting to be discharged. Pt. states, I really want to go live by myself, or maybe with my mom. RN discussed plan for d/c to board and care. Pt. states, Well hopefully I get to stay in the area at least. Pt. seen socializing with peers and staff appropriately. Pt. had normal bowel movement this AM. S/I, H/I: Denies A/VH: Denies Sleep: Pt. did not nap on day shift. ADL's: Independent. Pt. showered in AM. Group attendance: Yes Were meds taken: Yes Any med S/E: none observed nor reported Mental Status Exam Appearance: Clean; wearing street clothes. Eye contact: Good Behavior: Cooperative, engaging with peers, pacing, watching tv, reading Speech: Clear, normal rate, rhythm Mood: Euthymic Affect: Congruent with affect Thought process: Linear Thought Content: discharge Cognition: A/Ox4 Insight: Fair Judgment: Poor, impulsive Interventions PRN's used: None Therapeutic interventions: 1:1 therapeutic assessment, dressing change, provided picture of wound to PG as requested, provided medication administration/education/monitoring as needed, encouraged group attendance, Q15 safety checks. Restraints/seclusion/emergency medication: N/A Justification of Continued Inpatient Treatment: Patient is conserved, waiting for left knee to heal before finding placement.
[2019-05-25 19:33] VITALS: BP 121/72
[2019-05-25] MEDS: risperiDONE 2mg tablet PO SCH (21:08)
--- NOTE | 2019-05-26 00:14 | NUR ---
Nursing Progress Note: Legal hold: LPS Report received from DIONNE Tellez with use of SBAR Why are they here: The patient is a 43 year old with Schizoaffective Disorder who was readmitted to [facility] after being transferred to an IMD. Once she arrived at the IMD the staff felt they could not manage her wound care to her left knee and she was transferred back to [facility]. Assessment What has happened this shift: Pt is seen ambulating outside of her room during shift change. Wearing street clothes. Pt remained in the group room for some time. She was cooperative during 1:1 physical assessment and took all her HS meds without any issues. Her wound dressing was dry and intact so there was no need to change. Pt denies any symptoms and states that she had a good day. Apparently she was observed checking doors by other staff. Pt states that she just wants to be go home. I would just get my own place. I would keep it clean and I just have to make sure to take all my meds. Reminded pt again of D/C plan. Pt did not seem to be responding to internal stimuli and denies any anxiety but does appear to be very depressed. Pt states that she hasn't had a BM for a while but it has been charted that she did have one recently. Provided pt some prune juice. Pt retired to bed after medication pass. S/I, H/I: Denies A/VH: Denies Sleep: Currently sleeping, see sleep assessment for total hours ADL's: Independent Group attendance: No groups this shift Were meds taken: Yes Any med S/E: none observed or reported Mental Status Exam Appearance: Appropriate, clean, wearing pajamas Eye contact: Good, direct Behavior: Cooperative, calm, socializing appropriately with other patients and staff. Speech: Clear, normal rate and rhythm Mood: Depressed Affect: Constricted Thought process: Circumstantial Thought Content: Discharge, wanting to get her own place Cognition: A/Ox4 Insight: Fair Judgment: Poor Interventions PRN's used: None Therapeutic interventions: 1:1 therapeutic assessment, drsg change, provided picture of wound to PG as requested, provided medication administration/education/monitoring as needed, encouraged group attendance, Q15 safety checks. Restraints/seclusion/emergency medication: N/A Justification of Continued Inpatient Treatment: Patient is conserved, waiting for left knee to heal before finding placement.
[2019-05-26] MEDS: levoTHYROXINE 112mcg tablet PO SCH (07:29)
[2019-05-26] MEDS: docusate sod 100mg capsule PO SCH ×2 (07:29→20:36)
[2019-05-26] MEDS: ESCITALOPRAM OXALATE 5 MG TABLET PO SCH (07:29)
[2019-05-26] MEDS: metFORMIN 500mg tablet PO SCH ×2 (07:29→20:36)
[2019-05-26 07:33] VITALS: BP 110/64
[2019-05-26] MEDS: JUVEN Smoothie Arginine/Glut./Ca2+Bmb (Juven 19.3pkt) 240ml cup PO SCH ×2 (08:00→20:45)
--- NOTE | 2019-05-26 17:51 | NUR ---
Nursing Progress Note: Legal hold: LPS Report received from Mara Shah RN with use of SBAR Why are they here: The patient is a 43 year old with Schizoaffective Disorder who was readmitted to [facility] after being transferred to an IMD. Once she arrived at the D the staff felt they could not manage her wound care to her left knee and she was transferred back to [facility]. Assessment What has happened this shift: Pt. asleep at start of shift. Pt. ate all meals in community room and took all medications. 1:1 done at bedside. Dressing changed after patients shower. old bandaged showed scant sero-sangeounous drainage. Wound cleaned and dressed per wound-care instructions. Red granulation tissue noted over half of exposed bone. No s&s of infection observed. Pt. reports feeling frustrated and wanting to be discharged. Pt. states, Im ready to go. RN discussed plan for d/c to board and care due to hx of GD. Pt. appeared less agitated and said, thanks for talking with me, I feel better now. Pt. seen socializing with peers and staff appropriately. Watching movie in community. Pt. reading book on her bed. S/I, H/I: Denies A/VH: Denies Sleep: Pt. did not nap on day shift. ADL's: Independent. Pt. showered in AM. Group attendance: Yes Were meds taken: Yes Any med S/E: none observed nor reported Mental Status Exam Appearance: Clean; wearing street clothes. Eye contact: Good Behavior: Cooperative, engaging with peers, pacing, watching tv, reading Speech: Clear, normal rate, rhythm Mood: Euthymic with moments of depression and frustration. Affect: Flat Thought process: Linear Thought Content: discharge Cognition: A/Ox4 Insight: Fair Judgment: Poor, impulsive Interventions PRN's used: None Therapeutic interventions: 1:1 therapeutic assessment, dressing change, provided picture of wound to PG as requested, provided medication administration/education/monitoring as needed, encouraged group attendance, Q15 safety checks. Restraints/seclusion/emergency medication: N/A Justification of Continued Inpatient Treatment: Patient is conserved, waiting for left knee to heal before finding placement.
[2019-05-26] MEDS: LORazepam 0.5 MG tablet PO PRN (18:15)
[2019-05-26 19:49] VITALS: BP 120/80
[2019-05-26] MEDS: risperiDONE 2mg tablet PO SCH (20:36)
--- NOTE | 2019-05-26 23:23 | NUR ---
Nursing Progress Note: Legal hold: LPS Report received from DIONNE Tellez with use of SBAR Why are they here: The patient is a 43 year old with Schizoaffective Disorder who was readmitted to [facility] after being transferred to an IMD. Once she arrived at the IMD the staff felt they could not manage her wound care to her left knee and she was transferred back to [facility]. Assessment What has happened this shift: Pt was ambulating the isles during shift change. Pt attended snack and was socializing appropriately with other patients. She states that he had a good day. Pt was cooperative during 1:1 physical assessment and took all her HS meds without any issues. She denies any AV/H and there were no delusional statements made this shift. Talked about when she left and stated I did not like that place at all. I still dont like this place but its better than that other place. There was no door checking per this shift. Pts wound dressing was dry and intact. There was no need for a dressing change. Pt continues to read her book before going to sleep. S/I, H/I: Denies A/VH: Denies Sleep: Currently sleeping, see sleep assessment for total hours ADL's: Independent Group attendance: No groups this shift Were meds taken: Yes Any med S/E: none observed or reported Mental Status Exam Appearance: Appropriate, clean, wearing pajamas Eye contact: Good, direct Behavior: Cooperative, calm, pleasant Speech: Clear, normal rate and rhythm Mood: "I'm okay today" Affect: Blunted with occasional brightening Thought process: Circumstantial Thought Content: Reading her book Cognition: A/Ox4 Insight: Fair Judgment: Poor Interventions PRN's used: None Therapeutic interventions: 1:1 therapeutic assessment, drsg change, provided picture of wound to PG as requested, provided medication administration/education/monitoring as needed, encouraged group attendance, Q15 safety checks. Restraints/seclusion/emergency medication: N/A Justification of Continued Inpatient Treatment: Patient is conserved, waiting for left knee to heal before finding placement.
[2019-05-27] MEDS: levoTHYROXINE 112mcg tablet PO SCH (07:49)
[2019-05-27] MEDS: docusate sod 100mg capsule PO SCH ×2 (07:49→20:24)
[2019-05-27] MEDS: metFORMIN 500mg tablet PO SCH ×2 (07:49→20:24)
[2019-05-27] MEDS: ESCITALOPRAM OXALATE 5 MG TABLET PO SCH (07:50)
[2019-05-27] MEDS: JUVEN Smoothie Arginine/Glut./Ca2+Bmb (Juven 19.3pkt) 240ml cup PO SCH ×2 (07:52→20:00)
[2019-05-27 08:00] VITALS: BP 124/67
[2019-05-27] MEDS: ibuprofen 200mg tablet PO PRN ×2 (09:47→18:36)
[2019-05-27] MEDS ORDERED: cyclobenzaprine 10mg tablet PO ONE (12:45)
--- NOTE | 2019-05-27 16:16 | NUR ---
NURSING PROGRESS NOTE Legal hold: [id number] Client on involuntary status for DTS/DTO. Report received from RN with use of SBAR. Why are they here: Patient presented to [facility] [place] police. Patient reports hearing voices telling him to kill himself with a knife. Pt is feels depressed and hopeless stating Nobody care about me. He states he has been off [place] for the last 7 days (as of 05/01/19), but has been taking all other medications. Pts girlfriend called EMS after noticing a worsening decline, pt. went voluntarily to the hospital with police. Pt has at least 1 SA in 2019. Patient reports two sisters have committed suicide. Assessment What has happened this shift: Received Pt sleeping in bed w/o distress at beginning of shift. Pt awoke for vitals and AM meds were taken without issue. Pt was pleasant and cooperative and ate breakfast and other meals in community room with others and tolerated it well. Pt reports AHs are almost constant today and tell me to kill myself. He beleives the medications are helping a little bit. Pt c/o anxiety r/t the AHs and received Ativan with good effect. Pt isolates to his room and spent time in bed resting or napping. S/I, H/I: Passive SI A/VH: +AHs. one voice sounds like my dad, but hes Sleep: napped throughout day ADL's: Independent Group attendance: No Were meds taken: Yes Any med S/E: Lethargy Mental Status Exam Appearance: Disheveled, unshaven Eye contact: Direct Behavior: Pleasant/cooperative/isolative Speech: Soft/coherent Mood: Depressed Affect: Flat Thought process: Linear Thought Content: Anxiety r/t AHs and roomate talking at night Cognition: Alert Insight: Fair Judgment: Fair Interventions PRN's used: Ativan x1 Therapeutic interventions: 1:1 therapeutic assessment, provided active listening, medication administration/education/monitoring, orientation to reality as needed, encouraged fluid and ambulation to increase peristalsis; Q15 min safety checks. Restraints/seclusion/emergency medication: N/A Justification of Continued Inpatient Treatment: Patient continues to endorse auditory hallucinations and suicidal ideations with a plan to use a knife or a shotgun. Patient needs continued medication adjustment to stabilize current crisis. Patient is at a high risk for readmission if discharged at this time. Addendum: 05/27/19 at 1627 by Vincent العلي RN The above note is for a different Pt. and was inadvertently placed in this record. The above information does not pertain to this Pt.
--- NOTE | 2019-05-27 18:19 | NUR ---
Nursing Progress Note: Legal hold: LPS Report received from RN with use of SBAR Why are they here: The patient is a 43 year old with Schizoaffective Disorder who was readmitted to [facility] after being transferred to an I[facility]. Once she arrived at the IMD the staff felt they could not manage her wound care to her left knee and she was transferred back to [facility]. Assessment What has happened this shift: Received Pt sleeping in bed w/o distress at beginning of shift. Pt awoke for vitals and took AM meds without issue. Pt pleasant and cooperative throughout the day. C/o lower back pain and received PRN Davis with little effect. Raimundo ARZOLA ordered one time dose of Flexaril 10 mg with better effect, but not complete. Pt ate all meals in community room and watched TV with others. Pt spent time in bed reading a book. Dressing changed and weekly pictures taken. S/I, H/I: Denies A/VH: Denies Sleep: Pt. did not nap on day shift. ADL's: Independent. Pt. showered in AM. Group attendance: Yes Were meds taken: Yes Any med S/E: none observed nor reported Mental Status Exam Appearance: Clean; wearing street clothes. Eye contact: Good Behavior: Cooperative, engaging with peers, pacing, watching tv, reading Speech: Clear, normal rate, rhythm Mood: Euthymic with moments of depression and frustration. Affect: Flat Thought process: Linear Thought Content: discharge Cognition: A/Ox4 Insight: Fair Judgment: Poor, impulsive Interventions PRN's used: None Therapeutic interventions: 1:1 therapeutic assessment, dressing change, provided picture of wound to PG as requested, provided medication administration/education/monitoring as needed, encouraged group attendance, Q15 safety checks. Restraints/seclusion/emergency medication: N/A Justification of Continued Inpatient Treatment: Patient is conserved, waiting for left knee to heal before finding placement.
[2019-05-27] MEDS: magnesium hydroxide 30ml (MOM) UD suspension PO PRN (18:48)
[2019-05-27 19:26] VITALS: BP 104/67
[2019-05-27] MEDS: risperiDONE 2mg tablet PO SCH (20:24)
--- NOTE | 2019-05-27 23:14 | NUR ---
Nursing Progress Note: Legal hold: LPS Report received from DIONNE Tellez with use of SBAR Why are they here: The patient is a 43 year old with Schizoaffective Disorder who was readmitted to [facility] after being transferred to an IMD. Once she arrived at the IMD the staff felt they could not manage her wound care to her left knee and she was transferred back to [facility]. Assessment What has happened this shift: Pt was seen ambulating the isles during shift change. She came up to this junior technical writer and requested something for pain. She states that her back has been killing her. Ibuprofen was provided. Pt still appears very depressed. Attended snack but then retired to her room where she spent most of the time reading. She denies any A/VH and when asked about this, she states, Natalia never had any hallucinations. Denies any anxiety and states, "I just want to go home." Wound dressing did not have to be changed as this was clean, dry, and intact. Pt states she still has not a BM and request MOM and prune juice. This was provided. Bowl sounds were present. Pt goes to sleep after medication pass. S/I, H/I: Denies A/VH: Denies Sleep: Currently sleeping, see sleep assessment for total hours ADL's: Independent Group attendance: No groups this shift Were meds taken: Yes Any med S/E: none observed or reported Mental Status Exam Appearance: Appropriate, clean, wearing pajamas Eye contact: Good, direct Behavior: Cooperative, calm, pleasant, friendly Speech: Clear, normal rate and rhythm Mood: Depressed Affect: Congruent with mood Thought process: Circumstantial Thought Content: Placement, being discharged Cognition: A/Ox4 Insight: Fair Judgment: Poor Interventions PRN's used: Ibuprofen Therapeutic interventions: 1:1 therapeutic assessment, drsg change, provided picture of wound to PG as requested, provided medication administration/education/monitoring as needed, encouraged group attendance, Q15 safety checks. Restraints/seclusion/emergency medication: N/A Justification of Continued Inpatient Treatment: Patient is conserved, waiting for left knee to heal before finding placement.
[2019-05-28 08:00] VITALS: BP 99/66
[2019-05-28] MEDS: JUVEN Smoothie Arginine/Glut./Ca2+Bmb (Juven 19.3pkt) 240ml cup PO SCH ×2 (08:00→20:25)
[2019-05-28] MEDS: levoTHYROXINE 112mcg tablet PO SCH (08:14)
[2019-05-28] MEDS: docusate sod 100mg capsule PO SCH ×2 (08:14→20:20)
[2019-05-28] MEDS: ESCITALOPRAM OXALATE 5 MG TABLET PO SCH (08:14)
[2019-05-28] MEDS: metFORMIN 500mg tablet PO SCH ×2 (08:14→20:20)
[2019-05-28] MEDS: ibuprofen 200mg tablet PO PRN (08:59)
--- NOTE | 2019-05-28 12:23 | NUR ---
Nursing Progress Note: Legal hold: LPS Report received from RN with use of SBAR Why are they here: The patient is a 43 year old with Schizoaffective Disorder who was readmitted to [place] after being transferred to an I[facility]. Once she arrived at the IMD the staff felt they could not manage her wound care to her left knee and she was transferred back to [place]. Assessment What has happened this shift: Patient was asleep at change of shift and up before breakfast. Patient is pleasant and took a shower after breakfast. RN changed patient's wound dressing. No drainage seen. Patient having some body aches and RN gave patient Motrin with some relief. Patient attends group and is social. Patient found sitting in the Community Room reading some magazines. Patient's roommate left this morning and patient is a little sad. But sad mostly because she is still here. Patient denies SI/HI/AVH. S/I, H/I: Denies A/VH: Denies Sleep: No nap today ADL's: Independent. Pt. showered today Group attendance: Yes Were meds taken: Yes Any med S/E: none observed nor reported Mental Status Exam Appearance: Clean; wearing street clothes. Eye contact: Good Behavior: Cooperative, engaging with peers, pacing, watching tv, reading Speech: Clear, normal rate, rhythm Mood: Euthymic with some depression Affect: Flat Thought process: Linear Thought Content: wanting out of [place] Cognition: A/Ox4 Insight: Fair Judgment: Poor, impulsive Interventions PRN's used: None Therapeutic interventions: 1:1 therapeutic assessment, dressing change, provided picture of wound to PG as requested, provided medication administration/education/monitoring as needed, encouraged group attendance, Q15 safety checks. Restraints/seclusion/emergency medication: N/A Justification of Continued Inpatient Treatment: Patient is conserved, waiting for left knee to heal before finding placement.
[2019-05-28 19:33] VITALS: BP_SYST 105; BP_SYST 117; BP_DIAS 72; BP_DIAS 78
[2019-05-28] MEDS: risperiDONE 2mg tablet PO SCH (20:20)
--- NOTE | 2019-05-28 23:53 | NUR ---
Nursing Progress Note: Legal hold: LPS Report received from DIONNE Tellez with use of SBAR Why are they here: The patient is a 43 year old with Schizoaffective Disorder who was readmitted to [facility] after being transferred to an IMD. Once she arrived at the IMD the staff felt they could not manage her wound care to her left knee and she was transferred back to [facility]. Assessment What has happened this shift: Patient was ambulating the isles during shift change. When asked how she was doing she states Im okay but a little bit sad. I miss my roommate. All my friends leave. Pt attended snack and seemed to be socializing appropriately with other patients and staff. She was cooperative during 1:1 physical assessment and took all her meds without any issues. Patients denies any S/I, H/I, and hallucinations of any kind. Did not make any delusional statements per this shift. Wound dressing change was not necessary as this clean dry and intact. She retires to bed after medication pass. S/I, H/I: Denies A/VH: Denies Sleep: Currently sleeping, see sleep assessment for total hours ADL's: Independent Group attendance: No groups this shift Were meds taken: Yes Any med S/E: none observed or reported Mental Status Exam Appearance: Appropriate, clean, wearing pajamas Eye contact: Good, direct Behavior: Cooperative, calm, pleasant, friendly Speech: Clear, normal rate and rhythm Mood: Depressed, hopeless Affect: Congruent with mood Thought process: Circumstantial Thought Content: Misses her roommate Cognition: A/Ox4 Insight: Fair Judgment: Poor Interventions PRN's used: None Therapeutic interventions: 1:1 therapeutic assessment, drsg change, provided picture of wound to PG as requested, provided medication administration/education/monitoring as needed, encouraged group attendance, Q15 safety checks. Restraints/seclusion/emergency medication: N/A Justification of Continued Inpatient Treatment: Patient is conserved, waiting for left knee to heal before finding placement.
[2019-05-29] MEDS: ESCITALOPRAM OXALATE 5 MG TABLET PO SCH (07:43)
[2019-05-29] MEDS: levoTHYROXINE 112mcg tablet PO SCH (07:43)
[2019-05-29] MEDS: metFORMIN 500mg tablet PO SCH ×2 (07:43→20:50)
[2019-05-29] MEDS: docusate sod 100mg capsule PO SCH ×2 (07:43→20:50)
[2019-05-29 08:00] VITALS: BP 108/54
[2019-05-29] MEDS: JUVEN Smoothie Arginine/Glut./Ca2+Bmb (Juven 19.3pkt) 240ml cup PO SCH ×2 (08:00→20:00)
--- NOTE | 2019-05-29 14:46 | NUR ---
Nursing Progress Note: Legal hold: LPS Report received from RN with use of SBAR Why are they here: The patient is a 43 year old with Schizoaffective Disorder who was readmitted to [facility] after being transferred to an IMD. Once she arrived at the IMD the staff felt they could not manage her wound care to her left knee and she was transferred back to [facility]. Assessment What has happened this shift: Patient was asleep at change of shift and up before breakfast. Patient is pleasant and took a shower after breakfast. Patient is doing well but is sad because she hasn't left yet. RN spoke to Wound Care Nurse who is changing wound dressing from once a day to.....(I haven't seen the new order yet). Patient went to group, took a shower today and was social. Patient denies SI/HI/AVH. S/I, H/I: Denies A/VH: Denies Sleep: No nap today ADL's: Independent. Pt. showered today Group attendance: Yes Were meds taken: Yes Any med S/E: none observed nor reported Mental Status Exam Appearance: Clean; wearing her own clothes Eye contact: Good Behavior: Cooperative, engaging with peers, pacing, watching tv, reading Speech: Clear, normal rate, rhythm Mood: Euthymic with some depression Affect: Flat Thought process: Linear Thought Content: wanting out of [facility] Cognition: A/Ox4 Insight: Fair Judgment: Poor Interventions PRN's used: None Therapeutic interventions: 1:1 therapeutic assessment, dressing change, provided picture of wound to PG as requested, provided medication administration/education/monitoring as needed, encouraged group attendance, Q15 safety checks. Restraints/seclusion/emergency medication: N/A Justification of Continued Inpatient Treatment: Patient is conserved, waiting for left knee to heal before finding placement.
[2019-05-29 20:00] VITALS: BP 110/78
[2019-05-29] MEDS: risperiDONE 2mg tablet PO SCH (20:51)
--- NOTE | 2019-05-29 22:01 | NUR ---
Nursing Progress Note: Legal hold: LPS Report received from RN with use of SBAR Why are they here: The patient is a 43 year old with Schizoaffective Disorder who was readmitted to [facility] after being transferred to an IMD. Once she arrived at the IMD the staff felt they could not manage her wound care to her left knee and she was transferred back to [facility]. Assessment What has happened this shift: Pt was smiling and pleasant and change of shift. She inquired about facility she will be going to. Her wound dressing in [facility] so we didnt change it tonight. Pt is med compliant, anxious to be leaving. Pt spent evening pleasantly interacting with other patients and watching tv. S/I, H/I: Denies A/VH: Denies Sleep: No nap today ADL's: Independent. Pt. showered today Group attendance: Yes Were meds taken: Yes Any med S/E: none observed nor reported Mental Status Exam Appearance: Clean; wearing her own clothes Eye contact: Good Behavior: Cooperative, engaging with peers,watching tv, Speech: Clear, normal rate, rhythm Mood: Euthymic with some depression Affect: blunted Thought process: Linear Thought Content: asking about placement Cognition: A/Ox4 Insight: Fair Judgment: Poor Interventions PRN's used: None Therapeutic interventions: 1:1 therapeutic assessment, dressing change, provided picture of wound to PG as requested, provided medication administration/education/monitoring as needed, encouraged group attendance, Q15 safety checks. Restraints/seclusion/emergency medication: N/A Justification of Continued Inpatient Treatment: Patient is conserved, waiting for left knee to heal before finding placement.
[2019-05-30] MEDS: levoTHYROXINE 112mcg tablet PO SCH (07:50)
[2019-05-30] MEDS: metFORMIN 500mg tablet PO SCH ×2 (07:50→21:28)
[2019-05-30] MEDS: ESCITALOPRAM OXALATE 5 MG TABLET PO SCH (07:50)
[2019-05-30] MEDS: docusate sod 100mg capsule PO SCH ×2 (07:50→21:28)
[2019-05-30] MEDS: JUVEN Smoothie Arginine/Glut./Ca2+Bmb (Juven 19.3pkt) 240ml cup PO SCH ×2 (08:00→20:00)
[2019-05-30 08:04] VITALS: BP 116/59
--- NOTE | 2019-05-30 11:07 | NUR ---
Late Note for activity completed on 05/29/19 Presenting Issues: Pt's struggling with some sxs/bxs of depression (depressed mood, anxious thoughts, flat affect, and low energy). Interventions: Pt was encouraged to participate in Social Rehab Group and play Bingo with peers. Today's group was facilitated by a patient, SS co-facilitated. Pt received support & encouragement from group members during group activity and seemed to received them well. Pt's mood improved during group activity as aeb pt became more active & animated, engaged in conversations with peers and even laughed. Plan: SS will continue to encourage pt to attend group activities. Clementine Duffy LCSW Addendum: 05/30/19 at 1135 by Clementine MATTHEW Amended: Links added.
--- NOTE | 2019-05-30 15:21 | NUR ---
Nursing Progress Note: Legal hold: LPS Report received from RN with use of SBAR Why are they here: The patient is a 43 year old with Schizoaffective Disorder who was readmitted to [facility] after being transferred to an IMD. Once she arrived at the IMD the staff felt they could not manage her wound care to her left knee and she was transferred back to [facility]. Assessment What has happened this shift: Received Pt sleeping in bed w/o distress at beginning of shift. Pt awoke for vitals and took AM meds without issue. Pt in community room before breakfast socializing with other Pts and concerned about her placement. She asked a lot of questions about her possible placement location and got mildly anxious about it, but recovered well after breakfast. She was pleasant and cooperative throughout the day. Pt ate all meals in community room and watched TV with others, and attended AM group. She enjoyed long conversations with a newer Pt. as well as reading a book in bed. Dressing due to be changed on 05/30. Gayla reported that Pt has been accepted at [facility] in [facility] and may be leaving soon. S/I, H/I: Denies A/VH: Denies Sleep: Pt. did not nap on day shift. ADL's: Independent. Pt. showered in AM. Group attendance: Yes Were meds taken: Yes Any med S/E: none observed nor reported Mental Status Exam Appearance: Clean; wearing street clothes. Eye contact: Good Behavior: Cooperative, engaging with peers, pacing, watching tv, reading Speech: Clear, Coherent Mood: Euthymic. Anxious about placement when discussed Affect: Flat Thought process: Linear Thought Content: Discharge, wound on knee Cognition: A/Ox4 Insight: Fair Judgment: Poor, impulsive Interventions PRN's used: None Therapeutic interventions: 1:1 therapeutic assessment, dressing change, provided picture of wound to PG as requested, provided medication administration/education/monitoring as needed, encouraged group attendance, Q15 safety checks. Restraints/seclusion/emergency medication: N/A Justification of Continued Inpatient Treatment: Patient is conserved, waiting for left knee to heal before finding placement.
[2019-05-30 19:00] VITALS: BP 102/71
[2019-05-30] MEDS: risperiDONE 2mg tablet PO SCH (21:28)
[2019-05-31] MEDS ORDERED: acetaminophen 325mg tablet PO PRN (00:20)
--- NOTE | 2019-05-31 01:25 | NUR ---
Nursing Progress Note: Legal hold: LPS Report received from SAYDA Gaffney with use of SBAR Why are they here: The patient is a 43 year old with Schizoaffective Disorder who was readmitted to [facility] after being transferred to an IMD. Once she arrived at the IMD the staff felt they could not manage her wound care to her left knee and she was transferred back to [facility]. Assessment What has happened this shift: Pt watching TV and stated that she was having a "bad day" because "I am being discharged to a place in [place]. I don't want to go so far away." Pt states overall she is okay just trying to stave off boredom and be accepting of placement as she does want to leave. Pt wound dressing had drainage; wound care completed per orders and new dressing applied. Pt compliant with HS medications and retired to bed shortly after administration. S/I, H/I: Denies A/VH: Denies Sleep: See Sleep Assessment ADL's: Independent Group attendance: N/A Were meds taken: Yes Any med S/E: None observed nor reported Mental Status Exam Appearance: Clean and appropriate in personal clothing, slippers, and nonskid socks Eye contact: Fair Behavior: Cooperative, Watching TV, Walking the halls Speech: Clear, normal rate, rhythm Mood: "Okay" Pt is bored and concerned about discharge Affect:Blunted Thought process: Linear Thought Content: Upset about location of placement Cognition: A/Ox4 Insight: Fair Judgment: Poor Interventions PRN's used: None Therapeutic interventions: 1:1 therapeutic assessment, dressing changed, provided medication administration/education/monitoring as needed, Q15 safety checks. Restraints/seclusion/emergency medication: N/A Justification of Continued Inpatient Treatment: Patient is conserved, placement secured, awaiting date to discharge.
[2019-05-31 07:56] VITALS: BP 94/55
[2019-05-31] MEDS: levoTHYROXINE 112mcg tablet PO SCH (08:16)
[2019-05-31] MEDS: metFORMIN 500mg tablet PO SCH ×2 (08:16→20:51)
[2019-05-31] MEDS: docusate sod 100mg capsule PO SCH ×2 (08:16→20:50)
[2019-05-31] MEDS: JUVEN Smoothie Arginine/Glut./Ca2+Bmb (Juven 19.3pkt) 240ml cup PO SCH ×2 (08:17→20:00)
[2019-05-31] MEDS: ESCITALOPRAM OXALATE 5 MG TABLET PO SCH (08:17)
[2019-05-31] MEDS: ibuprofen 200mg tablet PO PRN (08:54)
--- NOTE | 2019-05-31 10:08 | NUR ---
Reassessment: Pt with slight fluctuation in PO intake however overall 75-100% of meals with 100% of Adam castillo BIDLD meeting nutrient needs with adequate protein to support wound healing. Wound care following. LB 05/28. Pt receiving routine bowel care. No further nutrition intervention warranted at this time. Will continue to follow. Rec: 1. continue carb controlled diet 2. Adam shake BIDLD to promote wound healing 3. routine bowel care; monitor need for additional 4. wt per rx Addendum: 05/31/19 at [address] Amended: Links added.
--- NOTE | 2019-05-31 13:00 | NUR ---
NURSING PROGRESS NOTE Legal hold: LPS Report received from SAYDA Mott with use of SBAR Why are they here: The patient is a 43 year old with Schizoaffective Disorder who was readmitted to [facility] after being transferred to an IMD. Once she arrived at the IMD the staff felt they could not manage her wound care to her left knee and she was transferred back to [facility]. Assessment Up at breakfast, conversing with others. Medication compliant. Reports feeling "back is out", given Motrin with good results. States she is "alittle bit depressed and a little bit despairing" due to not having a place to go to yet. Reminded she has been accepted at a facility and they are awaiting an open bed. Reported to nurse her back felt "better" and her mood improved mid morning. S/I, H/I: Denies A/VH: Denies Sleep: napped ADL's: Independent Group attendance: yes Were meds taken: Yes Any med S/E: None Mental Status Exam Appearance: Clean and neat Eye contact: good Behavior: Cooperative, kind to others Speech: Clear Mood: "a little depressed" Affect: blunted Thought process: Linear Thought Content: waiting for placement Cognition: Alert Insight: Fair Judgment: Poor Interventions PRN's used: Motrin x1 Therapeutic interventions: 1:1 therapeutic assessment, dressing changed, provided medication administration/education/monitoring as needed, Q15 safety checks. Restraints/seclusion/emergency medication: N/A Justification of Continued Inpatient Treatment: Patient is conserved, placement secured, awaiting date to discharge.
[2019-05-31] MEDS ORDERED: tuberculin, purif. prot. deriv. 5 units/0.1ml ID ONE (15:00)
[2019-05-31] MEDS: LORazepam 0.5 MG tablet PO PRN (17:40)
[2019-05-31 20:00] VITALS: BP 113/75
[2019-05-31] MEDS: risperiDONE 2mg tablet PO SCH (20:50)
--- NOTE | 2019-06-01 03:58 | NUR ---
NURSING PROGRESS NOTE Legal hold: LPS Report received from DIONNE Avelar with use of SBAR Why are they here: The patient is a 43 year old with Schizoaffective Disorder who was readmitted to [facility] after being transferred to an IMD. Once she arrived at the IMD the staff felt they could not manage her wound care to her left knee and she was transferred back to [facility]. Assessment Patient observed watching TV with peers at the beginning of shift. She remains pleasant and cooperative; compliant with all medication. Wound DSG CDI with no c/o pain this shift. Denies SI, HI, A/VH. Pt aware of acceptance with [facility] and is "looking forward to getting out of here." She initially expressed some concern for leaving [place] but later stated, "I need something different. Maybe I'll like it better there." Patient participated in HS snack and continued to watch TV with peers until going to bed. S/I, H/I: Denies A/VH: Denies Sleep: Refer to sleep assessment ADL's: Independent Group attendance: No group this shift Were meds taken: Yes Any med S/E: None reported or observed Mental Status Exam Appearance: Neat, clean, appropriate for the unit. Eye contact: Good Behavior: Pleasant, cooperative, socializing Speech: Clear, regular rate and rhythm Mood: "Good" Affect: Bright Thought process: Linear Thought Content: Continues to express wanting her own home to D/C to. Cognition: Alert Insight: Fair Judgment: Poor Interventions PRN's used: None Therapeutic interventions: 1:1 therapeutic assessment, dressing changed, provided medication administration/education/monitoring as needed, Q15 safety checks. Restraints/seclusion/emergency medication: N/A Justification of Continued Inpatient Treatment: Patient is conserved, placement secured, awaiting date to discharge.
[2019-06-01] MEDS: levoTHYROXINE 112mcg tablet PO SCH (07:28)
[2019-06-01 08:00] VITALS: BP 104/58
[2019-06-01] MEDS: JUVEN Smoothie Arginine/Glut./Ca2+Bmb (Juven 19.3pkt) 240ml cup PO SCH ×2 (08:00→20:00)
[2019-06-01] MEDS: docusate sod 100mg capsule PO SCH ×2 (08:17→20:00)
[2019-06-01] MEDS: ESCITALOPRAM OXALATE 5 MG TABLET PO SCH (08:17)
[2019-06-01] MEDS: metFORMIN 500mg tablet PO SCH ×2 (08:17→20:00)
[2019-06-01] MEDS: magnesium hydroxide 30ml (MOM) UD suspension PO PRN (09:45)
[2019-06-01] MEDS: ibuprofen 200mg tablet PO PRN ×2 (09:45→13:56)
[2019-06-01] MEDS: LIDOcaine 5% patch TP SCH (10:40)
--- NOTE | 2019-06-01 13:18 | NUR ---
SS note, memory board: 11 am group/review with Gabriela OKEEFEW/split and drum room supervisor. Ct appears to have short term memory deficit. Forgetting plans for discharge causing ct distress. In supervision, decided this selling underwriter will create a reminder list for ct to try with the goal of reducing stress/be a possible independence tool.
--- NOTE | 2019-06-01 16:40 | NUR ---
NURSING PROGRESS NOTE Legal hold: LPS Report received from SAYDA Moore with use of SBAR Why are they here: The patient is a 43 year old with Schizoaffective Disorder who was readmitted to [facility] after being transferred to an IMD. Once she arrived at the IMD the staff felt they could not manage her wound care to her left knee and she was transferred back to [facility]. Assessment What happened this shift: Pt sleeping at start of shift. She is c/o of "back pain." Last BM 05/29. MOM and prune juice given to her. Later she was given a Lidocaine patch and she received Motrin 600mg x2 PRN back pain. Pt talked about her discharge all day sharing how she does not want to "be so far from home." Pt education provided on conservatorship highlighted on her rights and encouraged her to have a plan when her court date comes up. S/I, H/I: Denies A/VH: Denies Sleep: Up all day ADL's: Independent Group attendance: yes Were Meds taken: Yes Any med S/E: None Mental Status Exam Appearance: Street clothes; appears clean Eye contact: Good Behavior: Lethargic and in pain today Speech: Clear Mood: depressed over discharge plan Affect: flat Thought process: Linear Thought Content: Pain and discharge Cognition: Alert Insight: Fair Judgment: Poor Interventions PRN's used: Motrin x1 Therapeutic interventions: 1:1 therapeutic assessment, dressing changed, provided medication administration/education/monitoring as needed, Q15 safety checks. Restraints/seclusion/emergency medication: N/A Justification of Continued Inpatient Treatment: Patient is conserved, placement secured, awaiting date to discharge.
[2019-06-01 19:38] VITALS: BP 106/79
[2019-06-01] MEDS: risperiDONE 2mg tablet PO SCH (21:07)
--- NOTE | 2019-06-02 03:23 | NUR ---
NURSING PROGRESS NOTE Legal hold: LPS Report received from SAYDA Childs with use of SBAR Why are they here: The patient is a 43 year old with Schizoaffective Disorder who was readmitted to [facility] after being transferred to an IMD. Once she arrived at the IMD the staff felt they could not manage her wound care to her left knee and she was transferred back to [facility]. Assessment What happened this shift: Patient observed watching TV with peers in the community room and socializing appropriately at the beginning of shift. Patient remains pleasant and cooperative with care; complaint with all medication. Patient continues to have minor (2/10) back pain but does not appear to be affecting ADLs. Lidoderm patch removed per order. Wound dressing to knee remains CDI. Patient denies SI, HI and A/VH. She denies feeling depressed this shift but reported, "I just want to go home." Patient continued to express she doesn't want to be too far from [place] d/t not being able to visit her mother. S/I, H/I: Denies A/VH: Denies Sleep: Refer to sleep assessment ADL's: Independent Group attendance: No group this shift Were meds taken: Yes Any med S/E: None reported or observed Mental Status Exam Appearance: Neat, clean, appropriate for the unit. Eye contact: Good Behavior: Pleasant, cooperative, socializing Speech: Clear, regular rate and rhythm Mood: "OK" Affect: Blunted Thought process: Linear Thought Content: Joyce Zamudio is too far from [place]; Continues to wish she could have her own apartment to d/c to. Cognition: Alert Insight: Fair Judgment: Poor Interventions PRN's used: None Therapeutic interventions: 1:1 therapeutic assessment, dressing changed, provided medication administration/education/monitoring as needed, Q15 safety checks. Restraints/seclusion/emergency medication: N/A Justification of Continued Inpatient Treatment: Patient is conserved, placement secured, awaiting date to discharge.
[2019-06-02 08:00] VITALS: BP 130/67
[2019-06-02] MEDS: JUVEN Smoothie Arginine/Glut./Ca2+Bmb (Juven 19.3pkt) 240ml cup PO SCH ×2 (08:00→20:00)
[2019-06-02] MEDS: metFORMIN 500mg tablet PO SCH ×2 (08:05→21:14)
[2019-06-02] MEDS: levoTHYROXINE 112mcg tablet PO SCH (08:06)
[2019-06-02] MEDS: docusate sod 100mg capsule PO SCH ×2 (08:06→21:13)
[2019-06-02] MEDS: ESCITALOPRAM OXALATE 5 MG TABLET PO SCH (08:06)
[2019-06-02] MEDS: LIDOcaine 5% patch TP SCH (08:07)
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
[2019-06-02 20:00] VITALS: BP 117/73
[2019-06-02] MEDS: risperiDONE 2mg tablet PO SCH (21:14)
--- NOTE | 2019-06-02 23:28 | NUR ---
NURSING PROGRESS NOTE Legal hold: LPS Report received from SAYDA Avelar with use of SBAR Why are they here: The patient is a 43 year old with Schizoaffective Disorder who was readmitted to [facility] after being transferred to an IMD. Once she arrived at the IMD the staff felt they could not manage her wound care to her left knee and she was transferred back to [facility]. Assessment What happened this shift: Patient observed watching TV with peers at the beginning of shift and later observed walking the kay. Participated in HS snack and shortly after laid down to sleep. Patient is pleasant and cooperative with all care; compliant with all medications. She denies SI, HI, A/VH and denies depression this shift. Placement wound dressing to knee is CDI. Lidoderm patch removed. Patient did not express distress over discharge plan this shift. She expressed minor concern illness with peer she socializes with often. Patient denies any discomfort, no body aches and encouraged to wash hands often. Will continue to monitor. S/I, H/I: Denies A/VH: Denies Sleep: Refer to sleep assessment ADL's: Independent Group attendance: No group this shift Were meds taken: Yes Any med S/E: None reported or observed Mental Status Exam Appearance: Neat, clean, appropriate for the unit. Eye contact: Good Behavior: Pleasant, cooperative, socializing Speech: Clear, regular rate and rhythm Mood: "I'm alright" Affect: Blunted Thought process: Linear Thought Content: Doesn't want to get sick. Cognition: Alert Insight: Fair Judgment: Poor Interventions PRN's used: None Therapeutic interventions: 1:1 therapeutic assessment, dressing changed, provided medication administration/education/monitoring as needed, Q15 safety checks. Restraints/seclusion/emergency medication: N/A Justification of Continued Inpatient Treatment: Patient is conserved, placement secured, awaiting date to discharge.
[2019-06-03] MEDS: levoTHYROXINE 112mcg tablet PO SCH (07:08)
[2019-06-03] MEDS: metFORMIN 500mg tablet PO SCH ×2 (07:56→20:09)
[2019-06-03] MEDS: ESCITALOPRAM OXALATE 5 MG TABLET PO SCH (07:56)
[2019-06-03] MEDS: docusate sod 100mg capsule PO SCH ×2 (07:56→20:10)
[2019-06-03] MEDS: LIDOcaine 5% patch TP SCH (07:57)
[2019-06-03 08:00] VITALS: BP 103/62
[2019-06-03] MEDS: JUVEN Smoothie Arginine/Glut./Ca2+Bmb (Juven 19.3pkt) 240ml cup PO SCH ×2 (08:00→20:30)
--- NOTE | 2019-06-03 16:51 | NUR ---
NURSING PROGRESS NOTE Legal hold: LPS Report received from SAYDA Moore with use of SBAR Why are they here: The patient is a 43 year old with Schizoaffective Disorder who was readmitted to [facility] after being transferred to an IMD. Once she arrived at the IMD the staff felt they could not manage her wound care to her left knee and she was transferred back to [facility]. Assessment What happened this shift: Pt talking to her roommate at start of shift. She denies SI/HI. She states her meds are working for her and she likes them and will continue to take them. LBM 05/31/19. She shares how she wished she could go home with her mother but her mother lives in a place that she cannot go to live in "it's like for seniors only." Then she said, "sometimes I feel bad being her taking up a space that someone else that really needs the help could be using; it really makes me feel bad." S/I, H/I: Denies A/VH: Denies Sleep: Up all day ADL's: Independent Group attendance: Yes; played BINGO Were Meds taken: Yes Any med S/E: None Mental Status Exam Appearance: Nicely dressed and clean Eye contact: Good Behavior: Engages well w/staff and peers Speech: Clear Mood: Bright Affect: Congruent Thought process: "I'm bored and I want to leave here." Thought Content: continues to want to stay in [place] Cognition: A/O x4 Insight: Fair Judgment: Fair Interventions PRN's used: N/A Therapeutic interventions: 1:1 therapeutic assessment, active listening, dressing change, provided medication administration/education/monitoring as needed, Q15 safety checks. Restraints/seclusion/emergency medication: N/A Justification of Continued Inpatient Treatment: Patient is conserved, placement secured, awaiting date to discharge.
[2019-06-03 19:35] VITALS: BP 111/73
[2019-06-03] MEDS: risperiDONE 2mg tablet PO SCH (20:09)
[2019-06-03] MEDS ORDERED: traZODone 50mg tablet PO PRN (20:55)
--- NOTE | 2019-06-03 22:20 | NUR ---
NURSING PROGRESS NOTE Legal hold: LPS Report received from SAYDA Avelar with use of SBAR Why are they here: The patient is a 43 year old with Schizoaffective Disorder who was readmitted to [facility] after being transferred to an IMD. Once she arrived at the IMD the staff felt they could not manage her wound care to her left knee and she was transferred back to [facility]. Assessment What happened this shift: Patient observed watching TV with other pt's at change of shift. Pt was seen interacting appropriately with pt's and staff during the evening. Pt reported feeling bored and is hopeful she can get placed somewhere soon. pt reassured that staff is actively looking for placement. pt denies si/hi, a/vh. S/I, H/I: Denies A/VH: Denies Sleep: Refer to sleep assessment ADL's: Independent Group attendance: No group this shift Were meds taken: Yes Any med S/E: None reported or observed Mental Status Exam Appearance: Neat, clean, appropriate for the unit. Eye contact: Good Behavior: Pleasant, cooperative, socializing Speech: Clear, regular rate and rhythm Mood: "bored" Affect: congruent Thought process: Linear Thought Content: dc plan. Cognition: Alert Insight: Fair Judgment: Poor Interventions PRN's used: trazadone Therapeutic interventions: 1:1 therapeutic assessment, dressing changed, provided medication administration/education/monitoring as needed, Q15 safety checks. Restraints/seclusion/emergency medication: N/A Justification of Continued Inpatient Treatment: Patient is conserved, placement secured, awaiting date to discharge.
[2019-06-04 08:00] VITALS: BP 92/54
[2019-06-04] MEDS: JUVEN Smoothie Arginine/Glut./Ca2+Bmb (Juven 19.3pkt) 240ml cup PO SCH ×2 (08:00→20:12)
[2019-06-04] MEDS: levoTHYROXINE 112mcg tablet PO SCH (08:54)
[2019-06-04] MEDS: ESCITALOPRAM OXALATE 5 MG TABLET PO SCH (08:57)
[2019-06-04] MEDS: metFORMIN 500mg tablet PO SCH ×2 (08:58→20:07)
[2019-06-04] MEDS: LIDOcaine 5% patch TP SCH (08:58)
[2019-06-04] MEDS: docusate sod 100mg capsule PO SCH ×2 (08:58→20:07)
[2019-06-04] MEDS: ibuprofen 200mg tablet PO PRN ×2 (09:45→14:27)
--- NOTE | 2019-06-04 17:12 | NUR ---
Nursing Progress Note: Legal hold: LPS Client on involuntary status for GD Report received from nurse with use of SBAR: SAYDA Deleon Why are they here: Patient had been discharged previously with follow up at [facility]. Upon assessment by the [facility], it was determined patient was not able to obtain, food, snf, or clothing and a 5150 for GD was written. Patient returned within hours of discharge. At time of return patient denied any symptoms related to his mental illness diagnosis of Schizophrenia. He continues to present with cognitive impairment which impedes his ability to care of himself, and requires multiple supports and external structures. Assessment What has happened this shift: Pt as in his room during shift change. He continues to be in droplet precaution due to +incluenza A. When asked how he was doing he states pretty good actually with a smile. He asks this RN if he could watch some TV. Charge nurse Yolanda was agreeable to have him by himself, wearing a mask in the recreation room. Pt will be monitored here. Pt was cooperative during 1:1 physical assessment and took all his HS meds without any issues. Nicotine patch was removed. Pt denies any nausea, diarrhea, or SOB. He denies any symptoms and there were no delusional statements made per this shift. Pt was pleasant and smiling as usual. Pt returned to his room at around 0. He requested Ativan before going to sleep and states that he is just having a lot of racing thoughts. S/I, H/I: Denies A/VH: Pt. denies Sleep: Currently sleeping, see sleep assessment for total hours ADL's: Requires some prompting and direction from staff at times Group attendance: shift manager, no groups, pt is in droplet precautions. Spent some time in recreation room watching TV by himself. Were meds taken: Yes Any med S/E: None noted or reported Mental Status Exam Appearance: Appropriately dressed wearing green unit scrubs Eye contact: Good Behavior: Cooperative, calm, somewhat anxious Speech: Soft and animated, minimal. Mood: pt states "I'm pretty good actually" with a big smile. Affect: Bright Thought process: Poverty of thought Thought Content: Being bored in his room, not having anything to do. Cognition: A&O X4 Insight: Poor Judgment: Fair Interventions PRN's used: Tylenol, Chloraseptic Lozenge, and Ativan Therapeutic interventions: Ensured contract for safety, maintained a safe and therapeutic environment, provided clear and simple instructions, monitored behaviors and need for intervention, provided active listening, encouraged independent performance of ADLs, obtained order for Chloraseptic Lozenges, and maintained Q 15 min safety checks. Restraints/seclusion/emergency medication: N/A Justification of Continued Inpatient Treatment: Pt. continues to require a safe and supportive environment, and remains GD r/t mental health. He is LPS conserved and awaiting placement.
--- NOTE | 2019-06-04 17:15 | NUR ---
NURSING PROGRESS NOTE Legal hold: LPS Report received from Geoff Astorga RN with use of SBAR Why are they here: The patient is a 43 year old with Schizoaffective Disorder who was readmitted to [facility] after being transferred to an IMD. Once she arrived at the IMD the staff felt they could not manage her wound care to her left knee and she was transferred back to [facility]. Assessment What happened this shift: Pt was in bed with eyes closed, appeared to be sleeping at start of shift. Pt paced up and down halls all day. Pt showered and wound bandage was replaced. Pt was seen interacting appropriately with other pt's and staff throughout the day. Pt reported feeling bored and is hopeful she can get placed somewhere soon. Pt is very pleasant. S/I, H/I: Denies A/VH: Denies Sleep: awake all shift ADL's: Independent Group attendance: No group today Were meds taken: Yes Any med S/E: None reported or observed Mental Status Exam Appearance: Neat, clean, appropriate for the unit. Eye contact: Good Behavior: Pleasant, cooperative, socializing Speech: Clear, regular rate and rhythm Mood: "bored" Affect: congruent Thought process: Linear Thought Content: dc plan. Cognition: Alert Insight: Fair Judgment: Poor Interventions PRN's used: ibuprofen for menstrual cramps Wound care orders changed to place versatalon wound with dry gauze overtop and barrier cream on skin graft. Change daily. Therapeutic interventions: 1:1 therapeutic assessment, dressing changed, provided medication administration/education/monitoring as needed, Q15 safety checks. Restraints/seclusion/emergency medication: N/A Justification of Continued Inpatient Treatment: Patient is conserved, placement secured, awaiting date to discharge.
[2019-06-04] MEDS: LORazepam 0.5 MG tablet PO PRN (18:56)
[2019-06-04] MEDS: risperiDONE 2mg tablet PO SCH (20:07)
[2019-06-04 20:12] VITALS: BP 115/70
--- NOTE | 2019-06-04 23:21 | NUR ---
NURSING PROGRESS NOTE Legal hold: LPS Report received from SAYDA Avelar with use of SBAR Why are they here: The patient is a 43 year old with Schizoaffective Disorder who was readmitted to [facility] after being transferred to an IMD. Once she arrived at the IMD the staff felt they could not manage her wound care to her left knee and she was transferred back to [facility]. Assessment What happened this shift: Patient was observed walking the halls at shift change. pt was polite and cooperative when approached for assessment and stated, "I'm just walking because I'm bored." Pt discussed her desire to move "somewhere else" and to be able to have a little freedom. Pt stated that she "doesn't understand why she can't just go home." Pt spent the evening walking or socializing with other pt's. pt's behavior continues to be appropriate and pt is well liked by both staff and patients. pt denies si/hi, a/vh. S/I, H/I: Denies A/VH: Denies Sleep: Refer to sleep assessment ADL's: Independent Group attendance: No group this shift Were meds taken: Yes Any med S/E: None reported or observed Mental Status Exam Appearance: Neat, clean, appropriate for the unit. Eye contact: Good Behavior: Pleasant, cooperative, socializing Speech: Clear, regular rate and rhythm Mood: "bored" Affect: congruent Thought process: Linear Thought Content: dc plan. Cognition: Alert Insight: Fair Judgment: Poor Interventions PRN's used: trazadone, ativan Therapeutic interventions: 1:1 therapeutic assessment, dressing changed, provided medication administration/education/monitoring as needed, Q15 safety checks. Restraints/seclusion/emergency medication: N/A Justification of Continued Inpatient Treatment: Patient is conserved, placement secured, awaiting date to discharge.
[2019-06-05 07:28] VITALS: BP 109/60
[2019-06-05] MEDS: JUVEN Smoothie Arginine/Glut./Ca2+Bmb (Juven 19.3pkt) 240ml cup PO SCH ×2 (08:00→20:38)
[2019-06-05] MEDS: metFORMIN 500mg tablet PO SCH ×2 (08:36→20:23)
[2019-06-05] MEDS: docusate sod 100mg capsule PO SCH ×2 (08:36→20:23)
[2019-06-05] MEDS: LIDOcaine 5% patch TP SCH (08:37)
[2019-06-05] MEDS: ESCITALOPRAM OXALATE 5 MG TABLET PO SCH (09:19)
[2019-06-05] MEDS: levoTHYROXINE 112mcg tablet PO SCH (09:19)
[2019-06-05] MEDS: ibuprofen 200mg tablet PO PRN (09:19)
--- NOTE | 2019-06-05 14:57 | NUR ---
NURSING PROGRESS NOTE Legal hold: LPS Report received from SAYDA Mott with use of SBAR Why are they here: The patient is a 43 year old with Schizoaffective Disorder who was readmitted to [facility] after being transferred to an IMD. Once she arrived at the IMD the staff felt they could not manage her wound care to her left knee and she was transferred back to [facility]. Assessment What happened this shift: Patient is observed resting at change of shift. She wakes and joins others in the group room for breakfast and then returns to her room. She states that she is doing ok today but is overheard telling the prescriber she is not doing well and expressing concerns related to her discharge. Patient is friendly and upbeat throughout the day. She attends group activities and walks the kay. Patient takes her medications without issue. S/I, H/I: Denies A/VH: Denies Sleep: 7.5hrs NOC ADL's: Independent Group attendance: yes Were meds taken: Yes Any med S/E: None reported or observed Mental Status Exam Appearance: Neat, clean, appropriate for the unit. Eye contact: direct Behavior: friendly and cooperative Speech: Clear, soft tone, regular rate and rhythm Mood: fair to good Affect: bright Thought process: Linear Thought Content: dc plan. Cognition: A/Ox4 Insight: Fair Judgment: fair Interventions PRN's used: motrin for cramps Therapeutic interventions: 1:1 therapeutic assessment, maintained safe therapeutic milieu, provided active listening with positive reinforcement, provided medication administration/education/monitoring as needed; Q15 safety checks. Restraints/seclusion/emergency medication: N/A Justification of Continued Inpatient Treatment: Continued therapeutic support and medication management needed to provide stabilization, prevent decompensation and improve coping mechanisms decreasing risk to patient. Patient is conserved, placement secured, awaiting date to discharge.
[2019-06-05 19:19] VITALS: BP 104/70
[2019-06-05] MEDS: risperiDONE 2mg tablet PO SCH (20:23)
--- NOTE | 2019-06-05 23:49 | NUR ---
NURSING PROGRESS NOTE Legal hold: LPS Report received from SAYDA Avelar with use of SBAR Why are they here: The patient is a 43 year old with Schizoaffective Disorder who was readmitted to [facility] after being transferred to an IMD. Once she arrived at the IMD the staff felt they could not manage her wound care to her left knee and she was transferred back to [facility]. Assessment What happened this shift: Pt was observed ambulating the isles during shift change. States she is doing pretty good and had a good day. Pt attended snack and was observed socializing appropriately with other patients and staff. Pt was cooperative during 1:1 physical assessment and took all her HS meds without any issues. Lidoderm patch was not present and pt states it had fallen off earlier. Wound dressing was changed as this was not changed this morning. Wound has some redness and there is very minimal purulent drainage. She denies any AV/H and there were no delusional statements per this shift. Pt continues to pace the isles for a little while before going to sleep. S/I, H/I: Denies A/VH: Denies Sleep: Currently sleeping. See sleep assessment for total hours ADL's: Independent Group attendance: retail shift leader, no groups Were meds taken: Yes Any med S/E: None reported or observed Mental Status Exam Appearance: Neat, clean, appropriate for the unit, wearing pajamas. Eye contact: Good Behavior: Pleasant, cooperative, socializing. Speech: Clear, regular rate and rhythm Mood: "I'm okay" Affect: congruent Thought process: Linear Thought Content: being bored, discharge plan Cognition: Alert Insight: Fair Judgment: Poor Interventions PRN's used: None Therapeutic interventions: 1:1 therapeutic assessment, dressing changed, provided medication administration/education/monitoring as needed, Q15 safety checks. Restraints/seclusion/emergency medication: N/A Justification of Continued Inpatient Treatment: Patient is conserved, placement secured, awaiting date to discharge.
[2019-06-06] MEDS: metFORMIN 500mg tablet PO SCH ×2 (07:56→21:45)
[2019-06-06] MEDS: levoTHYROXINE 112mcg tablet PO SCH (07:56)
[2019-06-06] MEDS: ESCITALOPRAM OXALATE 5 MG TABLET PO SCH (07:56)
[2019-06-06] MEDS: docusate sod 100mg capsule PO SCH ×2 (07:56→21:45)
[2019-06-06] MEDS: LIDOcaine 5% patch TP SCH (07:57)
[2019-06-06] MEDS: JUVEN Smoothie Arginine/Glut./Ca2+Bmb (Juven 19.3pkt) 240ml cup PO SCH ×2 (08:00→20:00)
[2019-06-06 08:05] VITALS: BP 96/58
--- NOTE | 2019-06-06 15:15 | NUR ---
NURSING PROGRESS NOTE Legal hold: LPS Report received from SAYDA Mott with use of SBAR Why are they here: The patient is a 43 year old with Schizoaffective Disorder who was readmitted to [facility] after being transferred to an IMD. Once she arrived at the IMD the staff felt they could not manage her wound care to her left knee and she was transferred back to [facility]. Assessment What happened this shift: Patient is observed resting at change of shift. She wakes and takes her medications without issue. She states that she would like to stay in her room today in bed because of her cycle causing cramps. Patient takes her medications without issue. Comfort care provided to include warm tea and hot compress. Patient states this is helpful. Patient showers and dressing is changed on her left wound. Patient is friendly throughout the day. S/I, H/I: Denies A/VH: Denies Sleep: 8.5hrs NOC ADL's: Independent Group attendance: yes Were meds taken: Yes Any med S/E: None reported or observed Mental Status Exam Appearance: Neat, clean, appropriate for the unit. Eye contact: direct Behavior: friendly and cooperative Speech: Clear, soft tone, regular rate and rhythm Mood: good Affect: bright Thought process: Linear Thought Content: no delusional thought content expressed Cognition: A/Ox4 Insight: Fair Judgment: fair Interventions PRN's used: Motrin for cramps Therapeutic interventions: 1:1 therapeutic assessment, maintained safe therapeutic milieu, provided active listening with positive reinforcement, provided medication administration/education/monitoring as needed; Q15 safety checks. Restraints/seclusion/emergency medication: N/A Justification of Continued Inpatient Treatment: Continued therapeutic support and medication management needed to provide stabilization, prevent decompensation and improve coping mechanisms decreasing risk to patient. Patient is conserved, placement secured, awaiting date to discharge.
[2019-06-06 20:00] VITALS: BP_SYST 104
[2019-06-06 20:30] VITALS: BP 104/62
[2019-06-06] MEDS: risperiDONE 2mg tablet PO SCH (21:45)
--- NOTE | 2019-06-07 01:01 | NUR ---
Nursing Progress Note: Legal hold: LPS Client on involuntary status for GD Report received from nurse with use of SBAR: Rosendo RN Why are they here: The patient is a 43 year old with Schizoaffective Disorder who was readmitted to [facility] after being transferred to an IMD. Once she arrived at the IMD the staff felt they could not manage her wound care to her left knee and she was transferred back to [facility]. Assessment What has happened this shift: Pt. sitting up in the Recreation Room at the beginning of the shift, watching TV and interacting appropriately with others. She animatedly greets this sports book writer. Pt. later attends snack ,and 1:1 completed at bedside. Pt. denies all mental health s/s and no delusional statements made this shift. Pt. states, "I am just looking forward to leaving." When this sports book writer questioned pt. whether she had heard any plans for discharge, she denies this. However, it was given in report that patient has been accepted to [facility] in [facility], will endorse to AM shift. S/I, H/I: Denies A/VH: Denies, does not appear to be responding to internal stimuli Sleep: Pt. repots she has been sleeping well ADL's: Independent, however pt. is still experiencing some weakness r/t healing of left knee skin graft site. Dressing changed today and remains CDI. Order is for daily. Group attendance: Pt. reports she attends all groups Were meds taken: Yes Any med S/E: None Mental Status Exam Appearance: Pt. is neat an well-dressed Eye contact: Good Behavior: Cooperative and slightly guarded Speech: Soft, WNL Mood: Pleasant Affect: Animated Thought process: Poverty of though Thought Content: Preoccupation with desire to discharge Cognition: A&O X4 Insight: Fair Judgment: Fair Interventions PRN's used: None Therapeutic interventions: Maintained a safe and supportive environment, ensured contract for safety, provided clear and simple directions, monitored wound on left knee dsg. remains CDI, maintained fall precautions, and maintained Q 15min safety checks. Restraints/seclusion/emergency medication: N/A Justification of Continued Inpatient Treatment: Pt. is is conserved and continues to await placement at this time. Patient has been accepted to [facility] in [facility].
[2019-06-07] MEDS: levoTHYROXINE 112mcg tablet PO SCH (07:27)
[2019-06-07] MEDS: docusate sod 100mg capsule PO SCH ×2 (07:27→20:51)
[2019-06-07] MEDS: JUVEN Smoothie Arginine/Glut./Ca2+Bmb (Juven 19.3pkt) 240ml cup PO SCH ×2 (07:28→20:00)
[2019-06-07] MEDS: metFORMIN 500mg tablet PO SCH ×2 (07:28→20:51)
[2019-06-07] MEDS: ESCITALOPRAM OXALATE 5 MG TABLET PO SCH (07:28)
[2019-06-07 07:36] VITALS: BP 92/57
[2019-06-07] MEDS: LIDOcaine 5% patch TP SCH (10:37)
--- NOTE | 2019-06-07 11:36 | NUR ---
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 Per WOC notes pt with no signs of infection at this time. Pt continues with 75-100% PO intake of meals with 100% PO intake of Adam smoothies meeting nutrient needs with adequate protein to support wound healing. [facility] 06/03. Pt receiving routine bowel care. Will continue to follow and monitor need for further nutrition intervention. Rec: 1. continue carb controlled diet 2. Adam smoothie BIDLD to promote wound healing 3. routine bowel care; monitor need for additional 4. wt per rx Addendum: 06/07/19 at [address] Amended: Links added.
[2019-06-07] MEDS: LORazepam 0.5 MG tablet PO PRN ×2 (12:51→20:54)
--- NOTE | 2019-06-07 14:12 | NUR ---
NURSING PROGRESS NOTE Legal hold: LPS Report received from SAYDA Mott with use of SBAR Why are they here: The patient is a 43 year old with Schizoaffective Disorder who was readmitted to [facility] after being transferred to an IMD. Once she arrived at the IMD the staff felt they could not manage her wound care to her left knee and she was transferred back to [facility]. Assessment What happened this shift: Up for breakfast and talking with others. C/co "depression" but upon further assessment patient stated she is feeling increased anxiety regarding leaving on Tuesday. Reports being "excited but a little bit scared" about her new home. Wound care nurse assessed and dressed wound today. Patient was given Ativan for anxiety with good results. She was able to go out to patio with her peers. and overall had a "good" day. S/I, H/I: Denies A/VH: Denies Sleep: None ADL's: Independent Group attendance: yes Were meds taken: Yes Any med S/E: None reported or observed Mental Status Exam Appearance: Neat, clean, in street clothes Eye contact: direct Behavior: friendly and cooperative Speech: Clear, soft Mood: slight depressive Affect: constricted Thought process: Linear Thought Content: thinking aboout discharge Tuesday Cognition: Alert Insight: Fair Judgment: fair Interventions PRN's used: Ativan Therapeutic interventions: 1:1 therapeutic assessment, maintained safe therapeutic milieu, provided active listening with positive reinforcement, provided medication administration/education/monitoring as needed; Q15 safety checks. Restraints/seclusion/emergency medication: N/A Justification of Continued Inpatient Treatment: Continued therapeutic support and medication management needed to provide stabilization, prevent decompensation and improve coping mechanisms decreasing risk to patient. Patient is conserved, placement secured, awaiting date to discharge.
[2019-06-07] MEDS ORDERED: IBUP-1594 PO (16:19)
[2019-06-07] MEDS ORDERED: METF-436 PO (16:19)
[2019-06-07] MEDS ORDERED: RISP4TAB2 PO (16:19)
[2019-06-07] MEDS ORDERED: SYN0.112T PO (16:19)
[2019-06-07] MEDS ORDERED: ESCI20TA PO (16:19)
[2019-06-07] MEDS ORDERED: TRAZ-251 PO (16:19)
[2019-06-07] MEDS: HYDROcodone/acetaminophen 10/325mg tab PO PRN (19:07)
[2019-06-07 20:00] VITALS: BP 123/75
[2019-06-07] MEDS: risperiDONE 2mg tablet PO SCH (20:51)
--- NOTE | 2019-06-08 00:13 | NUR ---
Nursing Progress Note: Legal hold: LPS Client on involuntary status for GD Report received from nurse with use of SBAR: SAYDA Tellez Why are they here: The patient is a 43 year old with Schizoaffective Disorder who was readmitted to [facility] after being transferred to an IMD. Once she arrived at the IMD the staff felt they could not manage her wound care to her left knee and she was transferred back to [facility]. Assessment What has happened this shift: Pt. sitting up in the Recreation Room at the beginning of the shift, she approaches this typewriter assembly and parts inspector and requests PRN Upton for intermittent left knee pain, administered with effectiveness. Per AM shift, wound care was provided by wound care nurse today, and dressing remains CDI. Pt. watching TV and interacting appropriately with others throughout the shift. 1:1 completed later at bedside, pt. appears anxious and states, "It was not a good day. Once I found out where I was going to." Pt. reports that she is feeling anxious about leaving her family here, she states, "I'm so nervous that I am shaking." She holds out her bilateral hands and some fine tremors and noted, PRN Ativan administered with effectiveness. This typewriter assembly and parts inspector talked more with pt. regarding where she would be transferred to and provided positive encouragement, she reported contentment. Pt. appears to be resting comfortably at this time, fall precautions in place. S/I, H/I: Denies A/VH: Denies, does not appear to be responding to internal stimuli Sleep: Pt. repots she has been sleeping well ADL's: Independent, however pt. is still experiencing some weakness r/t healing of left knee skin graft site. Fall precautions remain in place. Group attendance: Per AM shift, pt. attends all groups Were meds taken: Yes Any med S/E: None Mental Status Exam Appearance: Pt. is neat an well-dressed Eye contact: Good Behavior: Cooperative, anxious, and slightly guarded Speech: Soft, WNL Mood: Pleasant with anxiety Affect: Animated Thought process: Poverty of thought Thought Content: Apprehension regarding upcoming discharge Cognition: A&O X4 Insight: Fair Judgment: Fair Interventions PRN's used: Upton and Ativan Therapeutic interventions: Maintained a safe and supportive environment, ensured contract for safety, provided clear and simple directions, provided discharge education and positive encouragement, monitored wound on left knee dsg. remains CDI, maintained fall precautions, and maintained Q 15min safety checks. Restraints/seclusion/emergency medication: N/A Justification of Continued Inpatient Treatment: Pt. is is conserved and continues to await placement at this time. Patient has been accepted to [facility] in [facility].
[2019-06-08 08:00] VITALS: BP 94/55
[2019-06-08] MEDS: levoTHYROXINE 112mcg tablet PO SCH (08:22)
[2019-06-08] MEDS: ESCITALOPRAM OXALATE 5 MG TABLET PO SCH (08:22)
[2019-06-08] MEDS: docusate sod 100mg capsule PO SCH ×2 (08:22→19:56)
[2019-06-08] MEDS: JUVEN Smoothie Arginine/Glut./Ca2+Bmb (Juven 19.3pkt) 240ml cup PO SCH ×2 (08:22→20:00)
[2019-06-08] MEDS: metFORMIN 500mg tablet PO SCH ×2 (08:22→19:56)
[2019-06-08] MEDS: LIDOcaine 5% patch TP SCH (08:23)
--- NOTE | 2019-06-08 15:14 | NUR ---
Nursing Progress Note: Legal hold: LPS Client on involuntary status for GD Report received from nurse with use of SBAR: Cami RN Why are they here: The patient is a 43 year old with Schizoaffective Disorder who was readmitted to [facility] after being transferred to an IMD. Once she arrived at the IMD the staff felt they could not manage her wound care to her left knee and she was transferred back to [facility]. Assessment What has happened this shift: Pt showered after breakfast this morning. Instructed to remove dressing left knee before her shower and notify this nurse after shower so new dressing can be applied. Macerated area noted inferior to wound left knee, pt's wound care orders recently changed due to the issue of pt leaving foam dressing on during shower and leaving soggy dressing on for sometime afterwards. Dr Mcmillan came and looked at the wound. There is a very small scab noted in the the middle of the wound which he indicates he would like to remove on Tuesday before discharge. Dr Mcmillan reinforced that pt's dressing needs removed before showers and that it is okay for her to wash the wound with soap and water. Pt expressed understanding. Pt admitted to feeling a little depressed as she "just wants to go home." Pt aware that she is going to [facility] in [place], [place] on Tuesday. Pt asked questions about the facility she is going to on Tuesday but then she was able to answer her own questions indicating that someone had already discussed the facility with her. Pt denied SI/AH/VH. S/I, H/I: Pt denies A/VH: Pt denies Sleep: Pt reports sleeping well. ADL's: Independent Group attendance: Yes Were meds taken: Yes Any med S/E: None noted or reported. Mental Status Exam Appearance: Pt is neat and clean ,wears street clothes. Eye contact: Good Behavior: Pleasant, cooperative Speech: Clear, audible, normal rate and rhythm. Mood: A little depressed Affect: Appropriate Thought process: Linear, some reality distortion though responds well to reality orientation. Thought Content: Focused on pending discharge. Cognition: A/O X 4 Insight: Fair Judgment: Fair Interventions PRN's used: None Therapeutic interventions: 1:1 assessment, active listening, therapeutic conversation, medication administration/education/monitoring, wound care, reality orientation, positive reinforcement, Q 15 min safety checks. Restraints/seclusion/emergency medication: N/A Justification of Continued Inpatient Treatment: Pt is conserved and continues to await placement at this time. Patient has been accepted to [facility] in [facility], plan is for her to discharge there on Tuesday.
[2019-06-08 19:00] VITALS: BP 119/74
[2019-06-08] MEDS: risperiDONE 2mg tablet PO SCH (19:56)
[2019-06-08] MEDS: LORazepam 0.5 MG tablet PO PRN (19:56)
[2019-06-08] MEDS: HYDROcodone/acetaminophen 10/325mg tab PO PRN (19:57)
[2019-06-08] MEDS: magnesium hydroxide 30ml (MOM) UD suspension PO PRN (20:45)
--- NOTE | 2019-06-08 23:59 | NUR ---
Nursing Progress Note: Legal hold: LPS Client on involuntary status for GD Report received from nurse with use of SBAR: SAYDA Tellez Why are they here: The patient is a 43 year old with Schizoaffective Disorder who was readmitted to [facility] after being transferred to an IMD. Once she arrived at the IMD the staff felt they could not manage her wound care to her left knee and she was transferred back to [facility]. Assessment What has happened this shift: Pt. walking in the hallway at the beginning of the shift, she is observed to be interacting appropriately with others. Pt. is later sitting in a chair in the hallway looking sad and visibly anxious AEB bouncing her leg. 1:1 completed and pt. continues to report anxiety and some depression r/t her her upcoming discharge on Tuesday. She states, "I'm just worried about leaving and if they are going to like me there." Positive encouragement provided by this typewriter repairer, and PRN Ativan administered with effectiveness. Pt. also requests PRN Hyder for intermittent left knee pain, administered with effectiveness. She retreats to bed and is observed to be reading there. Pt. remains somewhat forgetful, and asks this typewriter repairer if she received her PRN Ativan and Hyder, this typewriter repairer assured her that she had and pt. reported contentment. She continues to report constipation, bowl sounds are active X4 quadrants, and pt. reports flatus. PRN MOM administered, will endorse to AM shift. Pt. appears to be resting comfortably at this time, fall precautions in place. S/I, H/I: Denies A/VH: Denies, does not appear to be responding to internal stimuli Sleep: Pt. appears to be sleeping well ADL's: Independent, however pt. is still experiencing some weakness r/t healing of left knee skin graft site. Fall precautions remain in place. Group attendance: Pt. reports she attends all groups Were meds taken: Yes Any med S/E: None Mental Status Exam Appearance: Pt. is neat an well-dressed Eye contact: Good Behavior: Cooperative, anxious, and slightly guarded Speech: Soft, WNL Mood: Pleasant with anxiety Affect: Constricted Thought process: Poverty of thought Thought Content: Apprehension regarding upcoming discharge Cognition: A&O X4 Insight: Fair Judgment: Fair Interventions PRN's used: Hyder and Ativan Therapeutic interventions: Maintained a safe and supportive environment, ensured contract for safety, provided clear and simple directions, provided discharge education and positive encouragement, monitored wound on left knee dsg. remains CDI, maintained fall precautions, and maintained Q 15min safety checks. Restraints/seclusion/emergency medication: N/A Justification of Continued Inpatient Treatment: Pt. is is conserved and continues to await placement at this time. Patient has been accepted to [facility] in [facility] and will discharge 06/11/19.
[2019-06-09] MEDS: metFORMIN 500mg tablet PO SCH ×2 (08:10→20:03)
[2019-06-09] MEDS: docusate sod 100mg capsule PO SCH ×2 (08:10→20:03)
[2019-06-09] MEDS: ESCITALOPRAM OXALATE 5 MG TABLET PO SCH (08:11)
[2019-06-09] MEDS: levoTHYROXINE 112mcg tablet PO SCH (08:11)
[2019-06-09] MEDS: LIDOcaine 5% patch TP SCH (08:12)
[2019-06-09] MEDS: JUVEN Smoothie Arginine/Glut./Ca2+Bmb (Juven 19.3pkt) 240ml cup PO SCH ×2 (08:13→20:00)
[2019-06-09 08:50] VITALS: BP 105/57
--- NOTE | 2019-06-09 09:00 | NUR ---
Adam nguyen did not come with breakfast this am. Marked incorrectly as received in MAR.
[2019-06-09] MEDS: magnesium hydroxide 30ml (MOM) UD suspension PO PRN (11:32)
[2019-06-09] MEDS: ibuprofen 200mg tablet PO PRN ×2 (13:54→20:07)
--- NOTE | 2019-06-09 13:55 | NUR ---
Pt states body feeling "achy". Oral temp taken 97.8. Pt given Motrin
--- NOTE | 2019-06-09 17:04 | NUR ---
Prabha Nursing Progress Note: Legal hold: LPS Client on involuntary status for GD Report received from noc RN with use of SBAR: Why are they here: The patient is a 43 year old with Schizoaffective Disorder who was readmitted to [facility] after being transferred to an IMD. Once she arrived at the IMD the staff felt they could not manage her wound care to her left knee and she was transferred back to [facility]. Assessment What has happened this shift: Pt attended breakfast and took medication. Pleasant and happy today. She states she is ready to to get out of here. She watched a movie with the group. Pt mother came to visit and pt reports the visit went well, just went by too fast. She requested some medication as her whole body feels tight and achy. Temperature taken oral and pt is afebrile. Ibuprofen given. Wound care provided to Left knee according to orders. Pt denies pain. Pt denies SI/HI/AH/VH. S/I, H/I: Denies A/VH: Denies Sleep: 7.5 h per noc assessment ADL's: Independent. Group attendance: Yes Were meds taken: Yes Any med S/E: None noted Mental Status Exam Appearance: Clean, wearing sweat pants and tshirt. Hair brushed. Wound care per RN Eye contact: Good Behavior: Calm, pleasant, content Speech: WNL Mood: Fine Affect: Congruent to mood. Thought process: Poverty of thought Thought Content: Thinking about upcoming discharge Cognition: A&O X4 Insight: Fair Judgment: Fair Interventions PRN's used: Milk of Magnesia, Ibuprofen. Therapeutic interventions: Maintained a safe and supportive environment, ensured contract for safety, provided clear and simple directions, provided discharge education and positive encouragement, monitored wound on left knee dsg. remains CDI, maintained fall precautions, and maintained Q 15min safety checks. Restraints/seclusion/emergency medication: N/A Justification of Continued Inpatient Treatment: Pt. is is conserved and continues to await placement at this time. Patient has been accepted to [facility] in [facility] and will discharge 3.
[2019-06-09 20:00] VITALS: BP 128/79
[2019-06-09] MEDS: risperiDONE 2mg tablet PO SCH (20:03)
--- NOTE | 2019-06-10 00:02 | NUR ---
Prabha Nursing Progress Note: Legal hold: LPS Client on involuntary status for GD Report received from noc RN with use of SBAR: Why are they here: The patient is a 43 year old with Schizoaffective Disorder who was readmitted to [facility] after being transferred to an IMD. Once she arrived at the IMD the staff felt they could not manage her wound care to her left knee and she was transferred back to [facility]. Assessment What has happened this shift: Pt up on unit ambulating on unit. Interacting pleasantly with staff and other pts. She is excited about her discharge on Tuesday although she says she wishes it was not so far away. Pt denies SI/HI/AH/VH. S/I, H/I: Denies A/VH: Denies Sleep: Asleep at this time. ADL's: Independent. Group attendance: Yes Were meds taken: Yes Any med S/E: None noted Mental Status Exam Appearance: Clean, wearing sweat pants and tshirt. Hair brushed. Eye contact: Good Behavior: Calm, pleasant, content Speech: WNL Mood: Fine Affect: Congruent to mood. Thought process: Linear Thought Content: Thinking about upcoming discharge Cognition: A&O X4 Insight: Fair Judgment: Fair Interventions PRN's used: Ibuprofen. Therapeutic interventions: Maintained a safe and supportive environment, ensured contract for safety, provided clear and simple directions, provided discharge education and positive encouragement, monitored wound on left knee dsg. remains CDI, maintained fall precautions, and maintained Q 15min safety checks. Restraints/seclusion/emergency medication: N/A Justification of Continued Inpatient Treatment: Pt. is is conserved and continues to await placement at this time. Patient has been accepted to [facility] in [facility] and will discharge 06/11/19.
[2019-06-10 07:30] VITALS: BP 117/68
[2019-06-10] MEDS: ESCITALOPRAM OXALATE 5 MG TABLET PO SCH (07:40)
[2019-06-10] MEDS: levoTHYROXINE 112mcg tablet PO SCH (07:40)
[2019-06-10] MEDS: metFORMIN 500mg tablet PO SCH ×2 (07:41→20:58)
[2019-06-10] MEDS: LIDOcaine 5% patch TP SCH (07:41)
[2019-06-10] MEDS: docusate sod 100mg capsule PO SCH ×2 (07:41→20:57)
[2019-06-10] MEDS: JUVEN Smoothie Arginine/Glut./Ca2+Bmb (Juven 19.3pkt) 240ml cup PO SCH ×2 (08:00→20:00)
--- NOTE | 2019-06-10 15:14 | NUR ---
Nursing Progress Note: Prabha Legal hold: LPS Client on involuntary status for GD Report received from Prabha RN with use of SBAR: Why they are here: The patient is a 43 year old with Schizoaffective Disorder who was readmitted to [facility] after being transferred to an [facility]. Once she arrived at the I[facility] the staff felt they could not manage her wound care to her left knee and she was transferred back to [facility]. Assessment What has happened this shift? : Patient was just waking up at change of shift. Discussed pending discharge to board and care tomorrow. Admits feeling unsettled about it but also is glad to be leaving this unit. Also inquired about if she would be institutionalized forever. Reminded patient of her 6 month review of conservator status. Interacts well with both staff and other patients on the unit. States back pain has improved. Showered in afternoon, dressing changed and pictures obtained for chart. Continues to feel anxious regarding discharge. S/I, H/I: nope A/VH: nope Sleep: 8.25 per report ADL's: Independent. Group attendance? Yes Were meds taken? Yes Any med S/E: None noted Mental Status Exam Appearance: well groomed, wearing black leggings with a print shirt. Eye contact: Good Behavior: anxious, pleasant Speech: Normal rate, rhythm, and tone Mood: melancholy Affect: Congruent to mood. Thought process: Linear Thought Content: leaving tomorrow for board and care, glad to leave, not glad its so far. Cognition: A&O X4 Insight: Fair Judgment: Fair Interventions PRN's used: None Therapeutic interventions: Maintained a safe and supportive environment, provided clear and simple directions, provided discharge education and positive encouragement, monitored wound on left knee dsg. Remains CDI, maintained fall precautions, and maintained Q 15min safety checks. Restraints/seclusion/emergency medication: N/A Justification of Continued Inpatient Treatment: Pt. is conserved and continues to await placement at this time. Patient has been accepted to [facility] in [facility] and will discharge 06/11/19.
[2019-06-10 20:56] VITALS: BP 111/62
[2019-06-10] MEDS: risperiDONE 2mg tablet PO SCH (20:57)
--- NOTE | 2019-06-11 00:19 | NUR ---
Nursing Progress Note: Legal hold: LPS Client on involuntary status for GD Report received from Geoff TRUONG with use of SBAR: Why they are here: The patient is a 43 year old with Schizoaffective Disorder who was readmitted to [facility] after being transferred to an [facility]. Once she arrived at the I[facility] the staff felt they could not manage her wound care to her left knee and she was transferred back to [facility]. Assessment What has happened this shift: Pt up on unit well groomed. Dressed attractively hair styled. Pt is excited about discharge tomorrow. Educated about medications and plan for tomorrow. Pt pleasant and cooperative with all care. A/VH: denied Sleep: asleep at this time ADL's: Independent. Group attendance? Yes Were meds taken? Yes Any med S/E: None noted Mental Status Exam Appearance: well groomed, wearing black leggings with a print shirt. Eye contact: Good Behavior: anxious, pleasant Speech: Normal rate, rhythm, and tone Mood: "good" Affect: Congruent to mood. Thought process: Linear Thought Content: leaving tomorrow for board and care, glad to leave, not glad its so far. Cognition: A&O X4 Insight: Fair Judgment: Fair Interventions PRN's used: None Therapeutic interventions: Maintained a safe and supportive environment, provided clear and simple directions, provided discharge education and positive encouragement, monitored wound on left knee dsg. Remains CDI, maintained fall precautions, and maintained Q 15min safety checks. Restraints/seclusion/emergency medication: N/A Justification of Continued Inpatient Treatment: Pt. is conserved and continues to await placement at this time. Patient has been accepted to [facility] in [facility] and will discharge 06/11/19.
[2019-06-11] MEDS: levoTHYROXINE 112mcg tablet PO SCH (05:43)
[2019-06-11] MEDS: LIDOcaine 5% patch TP SCH (05:43)
[2019-06-11] MEDS: metFORMIN 500mg tablet PO SCH (05:43)
[2019-06-11] MEDS: docusate sod 100mg capsule PO SCH (05:44)
--- NOTE | 2019-06-11 06:35 | NUR ---
Discharge Note: Discharge instruction sheet and smoking cessation sheet given to pt. Pt verbalized understanding. All belongings inventoried and returned to pt. Pt given Am meds early. Provided with sac lunch. Transport took pt at 0620.
[2019-06-11] MEDS ORDERED: LIDOcaine 2% (20 mg/ml) 5ml cardiac syringe IJ ONE (08:00)
--- NOTE | 2019-06-11 11:52 | NUR ---
CM Presenting Issues: Pt d/c'd & picked up by [facility] PG transported to [facility], [place], [place]; pt's d/c meds was left behind. PG wants [facility] to overnite it to [facility]. Interventions: SS took meds down to [facility], staff there took meds & address for [facility], meds will be overnited. SS also faxed d/c packet to [facility]. Plan: SS referral closed. Clementine Duffy LCSW Addendum: 06/11/19 at 1200 by Clementine MATTHEW Amended: Links added.
== END 2019-06-11 06:20 | disposition short-term general hospital (02) | DRG 750 ==
LOC: ADULT MH 14:30
PROVIDERS: ADMIT Psychiatry & Neurology Psychiatry; ATTEND Psychiatry & Neurology Psychiatry
DX: F25.9 Schizoaffective disorder, unspecified (principal); C50.919 Malignant neoplasm of unspecified site of unspecified female breast; E11.9 Type 2 diabetes mellitus without complications; N39.0 Urinary tract infection, site not specified; S06.9X9S Unspecified intracranial injury with loss of consciousness of unspecified duration, sequela; B96.20 Unspecified Escherichia coli [E. coli] as the cause of diseases classified elsewhere; E03.9 Hypothyroidism, unspecified; F12.90 Cannabis use, unspecified, uncomplicated; F17.210 Nicotine dependence, cigarettes, uncomplicated; F32.9 Major depressive disorder, single episode, unspecified; K59.00 Constipation, unspecified; Z79.84 Long term (current) use of oral hypoglycemic drugs; Z79.890 Hormone replacement therapy; Z80.8 Family history of malignant neoplasm of other organs or systems; Z82.49 Family history of ischemic heart disease and other diseases of the circulatory system; Z86.14 Personal history of Methicillin resistant Staphylococcus aureus infection; Z87.820 Personal history of traumatic brain injury; Z91.14 Patient's other noncompliance with medication regimen; Z59.0 Homelessness; Z28.21 Immunization not carried out because of patient refusal; Z88.0 Allergy status to penicillin; Z91.013 Allergy to seafood; Z79.899 Other long term (current) drug therapy; S81.002D Unspecified open wound, left knee, subsequent encounter
CPT/HCPCS: 81025; 87081; 99285; Q2037

== ENCOUNTER 2021-01-19 16:04 | Inpatient (IN) | payer MEDICAID ==
[~2021-01-19] VITALS: Ht 162.6 cm; Wt 75.4 kg
[~2021-01-19 16:04] MED LIST changes: -ACET-2119 PO; -CLE150C PO; +DOCU100C40 PO; -DOCU100C41 PO; +ESCI20TA PO; -ESCI20TA45 PO; -HYDR-4353 PO; +IBUP-1594 PO; -LEVO125T PO; -LORA-268 PO; -NICO-503 MM; -NICO-630 TD; -Non-Formulary TP; -RISP4TAB2 PO; +RISP4TAB73 PO; +SYN0.112T PO; +TRAZ-251 PO; -TRAZ150T78 PO; -XYL25J TOP
[2021-01-19 16:44] LABS: URINE HCG NEGATIVE (NEG)
[2021-01-19 16:46] LABS: BASOPHILS # (AUTO) 0.1 X10'3 (0-0.2); BASOPHILS % (AUTO) 0.8 % (0-1); EOSINOPHILS # (AUTO) 0.1 X10'3 (0-0.9); HEMATOCRIT 38.7 % (35.0-45.0); HEMOGLOBIN 12.9 g/dl (12.0-16.0); LYMPHOCYTES # (AUTO) 2.7 X10'3 (1.1-4.8); LYMPHOCYTES % (AUTO) 27.9 % (21-51); MEAN CORPUSCULAR HEMOGLOBIN 30.1 PG (27.0-31.0); MEAN CORPUSCULAR HGB CONC 33.3 g/dL (33.0-36.5); MEAN CORPUSCULAR VOLUME 90.2 FL (78-98); MEAN PLATELET VOLUME 7.1 FL (7.4-10.4); MONOCYTES # (AUTO) 0.5 X10'3 (0-0.9); MONOCYTES % (AUTO) 5.6 % (2-12); NEUTROPHILS # (AUTO) 6.2 X10'3 (1.8-7.7); NEUTROPHILS % (AUTO) 64.7 % (42-75); PLATELET COUNT 348 X10'3 (140-440); RED BLOOD COUNT 4.29 X10'6 (4.20-5.60); RED CELL DISTRIBUTION WIDTH 15.2 % (11.5-14.5); WHITE BLOOD COUNT 9.7 X10'3 (4.5-11.0)
[2021-01-19 17:04] LABS: ALANINE AMINOTRANSFERASE 27 U/L (12-78); ALBUMIN 3.3 G/DL (3.4-5.0); ALBUMIN/GLOBULIN RATIO 0.7 (1.1-1.5); ALKALINE PHOSPHATASE 59 IU/L (46-116); ANION GAP 9 (8-16); ASPARTATE AMINO TRANSFERASE 16 U/L (10-37); BILIRUBIN,TOTAL 0.2 MG/DL (0.1-1.0); BLOOD UREA NITROGEN 13 MG/DL (7-18); BUN/CREATININE RATIO 14.1 (6.6-38.0); CALCIUM 8.3 MG/DL (8.5-10.1); CHLORIDE 104 MMOL/L (99-107); CREATININE 0.92 MG/DL (0.40-0.90); GLUCOSE 121 MG/DL (70-104); POTASSIUM 4.1 MMOL/L (3.5-5.1); SODIUM 139 MMOL/L (135-145); TOTAL PROTEIN 8.1 G/DL (6.4-8.2); eGFR 67 ML/MIN
[2021-01-19 17:07] LABS: ETHANOL < 0.010 GM/DL (0.0-0.010)
[2021-01-19 17:12] LABS: CLARITY,URINE CLEAR (Clear); COLOR,URINE Yellow (Yellow); PH,URINE 6.5 (4.8-8.0); UA COLLECTION TYPE CLN CATCH MIDSTREAM
[2021-01-19 17:13] LABS: GLUCOSE, URINE Negative (Neg); KETONES,URINE TRACE mg/dl (Neg); NITRITES, URINE POSITIVE (Neg); OCCULT BLOOD,URINE NEGATIVE (Neg); PROTEIN,URINE Negative (Neg)
[2021-01-19 17:14] LABS: LEUKOCYTE ESTERASE ,URINE NEGATIVE (Neg); UROBILINOGEN,URINE 0.2 E.U/dL (0.2-1.0)
[2021-01-19 17:16] LABS: BACTERIA,URINE 3+ /HPF (Neg); RBC,URINE 0-2 /HPF (0-2); WBC,URINE 0-4 /HPF (0-4)
[2021-01-19 17:17] LABS: SQUAMOUS EPITHELIAL CELL,UR MODERATE /LPF (FEW)
[2021-01-19 17:26] LABS: URINE AMPHETAMINE SCREEN NEGATIVE (Neg); URINE BARBITUATE SCREEN NEGATIVE (Neg); URINE BENZODIAZEPINES SCREEN NEGATIVE (Neg); URINE CANNABINOID SCREEN NEGATIVE (Neg); URINE COCAINE SCREEN NEGATIVE (Neg); URINE METHADONE SCREEN NEGATIVE (Neg); URINE OPIATE SCREEN NEGATIVE (Neg); URINE PHENCYCLIDINE SCREEN NEGATIVE (Neg)
[2021-01-19] MEDS ORDERED: sulfamethoxazole/trimethoprim DS (800/160mg) tablet PO SCH (17:45)
[2021-01-19] MEDS: sulfamethoxazole/trimethoprim DS (800/160mg) tablet PO SCH (17:51)
[2021-01-19] MEDS ORDERED: mag hydrox/Alum hydrox/simeth 30ml oral suspension PO PRN ×2 (19:10→19:15)
[2021-01-19] MEDS ORDERED: acetaminophen 325mg tablet PO PRN ×4 (19:10→19:15)
[2021-01-19] MEDS ORDERED: magnesium hydroxide 30ml (MOM) UD suspension PO PRN ×2 (19:10→19:15)
[2021-01-19] MEDS ORDERED: loperamide 2mg capsule PO PRN ×2 (19:10→19:15)
[2021-01-19] MEDS ORDERED: traZODone 50mg tablet PO PRN (19:15)
[2021-01-19] MEDS ORDERED: NICOTINE POLACRILEX 2 MG LOZENGE BC PRN (19:15)
[2021-01-19] MEDS ORDERED: LORazepam 1 MG tablet PO PRN (19:15)
[2021-01-19] MEDS ORDERED: ARIP20TA4 PO (19:18)
[2021-01-19] MEDS ORDERED: ESCI20TA39 PO (19:18)
[2021-01-19] MEDS ORDERED: LEVO112T52 PO (19:18)
[2021-01-19] MEDS ORDERED: CARV-50 PO (19:18)
[2021-01-19] MEDS ORDERED: METF-436 PO (19:18)
[2021-01-19] MEDS ORDERED: MEMA5TAB PO (19:18)
[2021-01-19] MEDS ORDERED: LISI10TA27 PO (19:18)
--- NOTE | 2021-01-19 19:28 | NUR ---
pt was placed in t2 awaiting [facility] transport. pt currently not in room.
[2021-01-19] MEDS: traZODone 50mg tablet PO PRN (19:31)
[2021-01-19 19:48] VITALS: BP 115/81
[2021-01-19] MEDS: carVEDilol 12.5mg tablet PO SCH (20:07)
[2021-01-19] MEDS: docusate sod 100mg capsule PO SCH (20:08)
[2021-01-19] MEDS: memantine 5mg tablet PO SCH (20:28)
--- NOTE | 2021-01-19 20:48 | NUR ---
Admission Note: Pt admitted [facility] from ED where she was medically cleared. pt is here temporarily while she has court to renew her conservatorship. Pt is cooperative, friendly for intake process. Her belongings were inventoried, pt took a shower and went to bed early. Pt denies ever being suicidal, making her low risk, and is placed on Q-15 minute checks.
[2021-01-20] MEDS: sulfamethoxazole/trimethoprim DS (800/160mg) tablet PO SCH ×2 (08:03→20:12)
[2021-01-20] MEDS: ESCITALOPRAM OXALATE 5 MG TABLET PO SCH (08:03)
[2021-01-20] MEDS: memantine 5mg tablet PO SCH ×2 (08:03→20:13)
[2021-01-20] MEDS: metFORMIN 500mg tablet PO SCH ×2 (08:03→17:49)
[2021-01-20] MEDS: levoTHYROXINE 112mcg tablet PO SCH (08:03)
[2021-01-20] MEDS: ARIPIPRAZOLE 10 MG TABLET PO SCH (08:03)
[2021-01-20] MEDS: lisinopril 10 MG tablet PO SCH (08:04)
[2021-01-20] MEDS: carVEDilol 12.5mg tablet PO SCH ×2 (08:04→20:13)
[2021-01-20] MEDS: nicotine 14mg patch - 24hr TD SCH (08:21)
[2021-01-20 08:22] VITALS: BP_SYST 109; BP_SYST 98; BP_DIAS 62; BP_DIAS 66
[2021-01-20 09:24] LABS: HEMOGLOBIN A1C 7.8 % (4.5-6.2)
[2021-01-20 09:26] LABS: CHOL/HDL RATIO 4.4 (0.00-4.99); CHOLESTEROL 167 MG/DL (0-200); HDL CHOLESTEROL 38 MG/DL (35-60); LDL CHOLESTEROL 107 MG/DL (50-100); TRIGLYCERIDES 206 MG/DL (20-135)
[2021-01-20] MEDS ORDERED: dextrose 50%-water 50ml dispensing syringe IV PRN ×2 (11:25)
[2021-01-20] MEDS ORDERED: insulin Lispro (HumaLOG) vial - multi-dose SQ SCH (11:25)
[2021-01-20] MEDS ORDERED: glucagon, human recombinant 1mg kit SUBCUT PRN (11:25)
[2021-01-20] MEDS ORDERED: dextrose ORAL solution 15 GM/59 ML bottle PO PRN ×2 (11:25)
[2021-01-20] MEDS ORDERED: MESSAGE TO PHARMACY PO ONE (11:25)
--- NOTE | 2021-01-20 12:25 | NUR ---
Pt was picked up by the public guardian for court, she ambulated off the unit and down to the lobby accompanied by PCT.
--- NOTE | 2021-01-20 15:15 | NUR ---
Pt back from court.
--- NOTE | 2021-01-20 17:03 | NUR ---
Nursing Progress Note: Legal hold: [facility] conserved Client on involuntary status for GD Report received from nurse Tiera ALFREDO with use of SBAR. Why are they here: Pt was transferred from [facility] in [place], [place] on 01/19/21 in order to attend [facility] court on 01/20/21. Assessment What has happened this shift: Patient was up before breakfast. Pt was cooperative with medications. Pt denied depression, anxiety, SI/HI/AH/VH. Pt was picked up for court by the Public Guardian's office at 1225 and returned at 1515. Pt states that they renewed her conservatorship for another year. Pt states the skip load driver told her that she would be picked up tomorrow at 0615 to return to [place], [place]. S/I, H/I: Pt denies A/VH: Pt denies Sleep: Pt slept 8.25 hours last night per noc shift report. ADL's: Independent Group attendance: No Were meds taken: yes Any med S/E: None noted or reported Mental Status Exam Appearance: Clean, neat heavy set middle aged woman with light brown medium length hair. Eye contact: good Behavior: Pleasant, cooperative, friendly. Speech: Clear, audible, normal rate & rhythm Mood: Good Affect: Full range Thought process: Linear Thought Content: Focused on court and return to facility. Cognition: A/O X 4 Insight: Fair Judgment: Fair Interventions PRN's used: None Therapeutic interventions: 1:1 assessment, therapeutic conversation, active listening, medication administration/education/monitoring, provided encouragement and positive reinforcement, Q 15 minute safety checks. Restraints/seclusion/emergency medication: None Justification of Continued Inpatient Treatment: Pt is a [facility] conserved pt here for [facility] court, her conservatorship was renewed for another year and she will transfer back to [facility] early tomorrow morning.
[2021-01-20 19:48] VITALS: BP 118/79
[2021-01-20] MEDS: traZODone 50mg tablet PO PRN (20:13)
[2021-01-20] MEDS: docusate sod 100mg capsule PO SCH (20:13)
[2021-01-20] MEDS ORDERED: insulin glargine (Lantus) pen - multi-dose SQ SCH (21:00)
--- NOTE | 2021-01-21 01:35 | NUR ---
Nursing Progress Note: Legal hold: LPS conserved Client on involuntary status for GD Report received from nurse Tiera ALFREDO with use of SBAR. Why are they here: Pt was transferred from [facility] in [place], [place] on 01/19/21 in order to attend [facility] court on 01/20/21. Assessment What has happened this shift: Patient was up before breakfast. Pt was sitting in group room watching tv at change of shift. She requested a bandaid for her knee, states she isn't happy about being conserved again because she wants to get . Pt c/o knee pain and was offered tylenol. Pt states "Is that all? No thank you!" Pt was given prn trazodone to help with sleep, got out of bed to ask for a drink during the night and returned to bed. S/I, H/I: Pt denies A/VH: Pt denies Sleep: see sleep hours ADL's: Independent Group attendance: No Were meds taken: yes Any med S/E: None noted or reported Mental Status Exam Appearance: Clean, neat middle aged woman with light brown medium length hair. Eye contact: good Behavior: Pleasant, cooperative, friendly. Speech: Clear, audible, normal rate & rhythm Mood: Good Affect: Full range Thought process: Linear Thought Content: Focused on court and return to facility. Cognition: A/O X 4 Insight: Fair Judgment: Fair Interventions PRN's used: None Therapeutic interventions: 1:1 assessment, therapeutic conversation, active listening, medication administration/education/monitoring, provided encouragement and positive reinforcement, Q 15 minute safety checks. Restraints/seclusion/emergency medication: None Justification of Continued Inpatient Treatment: Pt is a [facility] conserved pt here for [facility] court, her conservatorship was renewed for another year and she will transfer back to [facility] early tomorrow morning.
[2021-01-21] MEDS: ESCITALOPRAM OXALATE 5 MG TABLET PO SCH (05:30)
[2021-01-21] MEDS: memantine 5mg tablet PO SCH (05:30)
[2021-01-21] MEDS: carVEDilol 12.5mg tablet PO SCH (05:30)
[2021-01-21] MEDS: ARIPIPRAZOLE 10 MG TABLET PO SCH (05:30)
[2021-01-21] MEDS: sulfamethoxazole/trimethoprim DS (800/160mg) tablet PO SCH (05:30)
[2021-01-21] MEDS: nicotine 14mg patch - 24hr TD SCH (05:31)
[2021-01-21] MEDS: levoTHYROXINE 112mcg tablet PO SCH (05:33)
[2021-01-21 05:46] VITALS: BP_SYST 111
[2021-01-21] MEDS: lisinopril 10 MG tablet PO SCH (05:46)
--- NOTE | 2021-01-21 06:24 | NUR ---
Discharge Note: Pt came to [facility] for annual court hearing and is returning home today. Pt left at 0625 with [facility] guardian. Pt is conserved. Pts vitals are stable and she is accompanied by PCT Ramon and security to vehicle. Pt was given all meds, belongings, and security will get bank card from [employer] for her.
[2021-01-21] MEDS ORDERED: atorvastatin 10mg tablet PO SCH (08:00)
== END 2021-01-21 06:28 | disposition home or self-care (01) | DRG 750 ==
LOC: ER 16:04 → ADULT MH 16:15
PROVIDERS: ADMIT Psychiatry & Neurology Psychiatry; ATTEND Psychiatry & Neurology Psychiatry
DX: F25.9 Schizoaffective disorder, unspecified (principal); E11.9 Type 2 diabetes mellitus without complications; E03.9 Hypothyroidism, unspecified; I10 Essential (primary) hypertension; N39.0 Urinary tract infection, site not specified; E78.5 Hyperlipidemia, unspecified; Z20.822 Contact with and (suspected) exposure to COVID-19; F17.210 Nicotine dependence, cigarettes, uncomplicated; Z87.820 Personal history of traumatic brain injury; Z88.0 Allergy status to penicillin; Z91.013 Allergy to seafood; Z79.899 Other long term (current) drug therapy; Z79.84 Long term (current) use of oral hypoglycemic drugs; Z87.440 Personal history of urinary (tract) infections; Z59.00 Homelessness unspecified; Z86.14 Personal history of Methicillin resistant Staphylococcus aureus infection; Z82.49 Family history of ischemic heart disease and other diseases of the circulatory system; Z80.2 Family history of malignant neoplasm of other respiratory and intrathoracic organs
CPT/HCPCS: 36415; 80053; 80061; 80305; 80320; 81001; 81025; 83036; 85025; 87077; 87081; 87088; 87186; 87635; 99285; J1815